=== PATIENT | female | born 1930 | race Two or more races ===

== ENCOUNTER 2018-08-30 14:24 | Inpatient (IN) | payer MEDICARE ==
[2018-08-30] VITALS (20 sets, daily range): BP systolic 0–149; BP diastolic 0–108
[~2018-08-30] VITALS: Ht 162.6 cm; Wt 60.3 kg
[2018-08-30] MEDS ORDERED: Sodium Chloride 500ML 500 ML IV ONE (14:30)
[2018-08-30] MEDS ORDERED: LEVOTHYROXINE75 MCG ORAL (14:41)
[2018-08-30] MEDS ORDERED: LISINOPRIL5 MG ORAL (14:41)
[2018-08-30] MEDS ORDERED: SIMVASTATIN5 MG ORAL (14:41)
[2018-08-30] MEDS ORDERED: ATENOLOL25 MG ORAL (14:41)
[2018-08-30] MEDS ORDERED: TRAZODONE HCL150 MG ORAL (14:41)
[2018-08-30 14:46] LABS: BASOPHILS % (AUTO) 0.7 % (0.0-2.0); EOSINOPHILS % (AUTO) 0.1 % (0.0-3.0); HEMOGLOBIN 9.6 G/DL (12.0-16.0); LYMPHOCYTES % (AUTO) 26.1 % (20.0-45.0); MEAN CORPUSCULAR VOLUME 91 FL (80-99); MONOCYTES % (AUTO) 7.9 % (1.0-10.0); NEUTROPHILS % (AUTO) 65.2 % (45.0-75.0); PLATELET COUNT 193 K/UL (150-450); RED BLOOD COUNT 3.29 M/UL (4.20-5.40); RED CELL DISTRIBUTION WIDTH 12.5 % (11.6-14.8); WHITE BLOOD COUNT 6.8 K/UL (4.8-10.8)
--- NOTE | 2018-08-30 14:53 | Emergency Room Report ---
History of Present Illness General Chief Complaint: CPR Source: EMS Present Illness HPI Patient apparently was at home and per report had aspirated was unresponsive on flour tester arrival. Patient was intubated and then started on CPR with chest compressions and epinephrine. Patient regained a pulse and then lost it arrived in idioventricular rhythm in her emergency department. No further history was available. Patient was critical. No other modifying factors. No other associated signs and symptoms. No other complaints were noted. Allergies: Coded Allergies: PENICILLINS (Verified Allergy, Unknown, 08/30/18) Patient History Past Medical History: HTN, other - Dysphagia Past Surgical History: unable to obtain Pertinent Family History: unable to obtain Social History Narrative and known unable to obtai Reviewed Nursing Documentation: PMH: Agreed Nursing Documentation-PMH Past Medical History: No History, Except For Hx Hypertension: Yes Hx Diabetes: No - hypothiroid Hx Gastrointestinal Problems: Yes - dysphasia Review of Systems All Other Systems: limited Physical Exam hypothermic, pulseless, apneic General Appearance: thin, other - Critically ill Head: atraumatic Eyes: bilateral eye other - [place] conjunctiva, pupils mid position and not reactive ENT: dry mucus membranes Neck: supple Respiratory: other - Rhonchus sounds with ventilation. Cardiovascular #1: other - Pulseless Gastrointestinal: soft Genitourinary: normal inspection Musculoskeletal: normal inspection Neurologic: other - Unable to assess, critical Psychiatric: other - Unable to assess, criti Skin: normal color, no rash Procedures Critical Care Time Critical Care Time Patient had a critical medical condition which untreated could potentially result in life or limb threatening injury. Total critical care time excluding procedures was 45 minutes. Central Line Central Line : Consent: Emergent Central Line Lumen: triple Maximal Sterile Barrier Tech: yes cap, yes mask, yes sterile gown, yes sterile gloves, yes large sterile sheet, yes hand hygiene, yes chlorhexidine prep Central Line Postion: femoral (R) Complications: none Central Line Post Position: sutured Attempts: One Patient Tolerated: Well Complications: None Medical Decision Making Diagnostic Impression: Primary Impression: For cardiopulmonary resuscitation Additional Impressions: Cardiac arrest Respiratory failure Pleural effusion Aspiration into airway Hypotension Hypothermia ER Course Patient presents emergency department today with cardiopulmonary arrest. Patient was resuscitated using ACLS protocol. Central line was placed in patient's right groin. Intubation was performed by the paramedics prior to arrival. Chest x-ray shows ET tube to be in good position. Case was discussed with [place] physician. Dr. Sherman at [place]. Case #[id number]. Case was also discussed with Dr. Ron Cantu. Patient will be admitted to intensive care unit for further treatment. Because of risks aspiration and pleural effusion on chest x-ray and patient was hypothermic will start antibiotics using some sepsis protocol. Blood cultures were obtained prior to administration IV antibiotics. Patient is allergic to penicillin and sulfa. Therefore patient will be started on aztreonam and Levaquin. Patient will be admitted to intensive. No further treatment. Case was discussed with the patient's daughter as well. And patient's . Labs Test 08/30/18 14:30 08/30/18 15:15 White Blood Count 6.8 K/UL (4.8-10.8) Red Blood Count 3.29 M/UL (4.20-5.40) Hemoglobin 9.6 G/DL (12.0-16.0) Hematocrit 30.0 % (37.0-47.0) Mean Corpuscular Volume 91 FL (80-99) Mean Corpuscular Hemoglobin 29.2 PG (27.0-31.0) Mean Corpuscular Hemoglobin Concent 31.9 G/DL (32.0-36.0) Red Cell Distribution Width 12.5 % (11.6-14.8) Platelet Count 193 K/UL (150-450) Mean Platelet Volume 7.5 FL (6.5-10.1) Neutrophils (%) (Auto) 65.2 % (45.0-75.0) Lymphocytes (%) (Auto) 26.1 % (20.0-45.0) Monocytes (%) (Auto) 7.9 % (1.0-10.0) Eosinophils (%) (Auto) 0.1 % (0.0-3.0) Basophils (%) (Auto) 0.7 % (0.0-2.0) Prothrombin Time 11.5 SEC (9.30-11.50) Prothromb Time International Ratio 1.1 (0.9-1.1) Activated Partial Thromboplast Time 27 SEC (23-33) Sodium Level 140 MMOL/L (136-145) Potassium Level 2.9 MMOL/L (3.5-5.1) Chloride Level 104 MMOL/L (98-107) Carbon Dioxide Level 24 MMOL/L (21-32) Anion Gap 12 mmol/L (5-15) Blood Urea Nitrogen 31 mg/dL (7-18) Creatinine 1.1 MG/DL (0.55-1.30) Estimat Glomerular Filtration Rate mL/min (>60) Glucose Level 168 MG/DL (74-106) Calcium Level 7.1 MG/DL (8.5-10.1) Total Bilirubin 0.3 MG/DL (0.2-1.0) Aspartate Amino Transf (AST/SGOT) 84 U/L (15-37) Alanine Aminotransferase (ALT/SGPT) 56 U/L (12-78) Alkaline Phosphatase 59 U/L (46-116) Total Creatine Kinase 242 U/L (26-308) Creatine Kinase MB 10.1 NG/ML (0.0-3.6) Creatine Kinase MB Relative Index 4.1 Troponin I 0.022 ng/mL (0.000-0.056) Pro-B-Type Natriuretic Peptide 253 pg/mL (0-125) Total Protein 5.7 G/DL (6.4-8.2) Albumin 2.2 G/DL (3.4-5.0) Globulin 3.5 g/dL Albumin/Globulin Ratio 0.6 (1.0-2.7) Lipase 176 U/L (73-393) Arterial Blood pH 7.341 (7.350-7.450) Arterial Blood Partial Pressure CO2 44.4 mmHg (35.0-45.0) Arterial Blood Partial Pressure O2 321.3 mmHg (75.0-100.0) Arterial Blood HCO3 23.5 mmol/L (22.0-26.0) Arterial Blood Oxygen Saturation 99.3 % (95-100) Arterial Blood Base Excess -2.3 (-2-2) Tanner Test Positive EKG Diagnostic Results Rate: normal Rhythm: other - Junctional ST Segments: no acute changes Rhythm Strip Diag. Results EP Interpretation: yes Rate: 80 Rhythm: no PVC's, no ectopy, other - Junctional Chest X-Ray Diagnostic Results Chest X-Ray Diagnostic Results : Chest X-Ray Ordered: Yes # of Views/Limited/Complete: 1 View Indication: Shortness of Breath EP Interpretation: Yes Interpretation: other - left pleural effusion,, ET tube in good position, no evidence pneumothorax Electronically Signed by: Electronically signed by Live Martinez MD Status: improved Disposition: ADMITTED INPATIENT Condition: Critical Live Martinez MD Aug 30, 2018 14:53
[2018-08-30 14:54] LABS: INR 1.1 (0.9-1.1)
[2018-08-30 15:04] LABS: ANION GAP 12 mmol/L (5-15); BLOOD UREA NITROGEN 31 mg/dL (7-18); CALCIUM 7.1 MG/DL (8.5-10.1); CARBON DIOXIDE 24 MMOL/L (21-32); CHLORIDE 104 MMOL/L (98-107); CREATININE 1.1 MG/DL (0.55-1.30); POTASSIUM 2.9 MMOL/L (3.5-5.1); SODIUM 140 MMOL/L (136-145)
[2018-08-30] MEDS ORDERED: DOPamine 400mg/250ml 250 ML IV SCH (15:15)
[2018-08-30 15:16] LABS: ALANINE AMINOTRANSFERASE 56 U/L (12-78); ALBUMIN 2.2 G/DL (3.4-5.0); ALBUMIN/GLOBULIN RATIO 0.6 (1.0-2.7); ALKALINE PHOSPHATASE 59 U/L (46-116); ASPARTATE AMINO TRANSFERASE 84 U/L (15-37); BILIRUBIN,TOTAL 0.3 MG/DL (0.2-1.0); CKMB 10.1 NG/ML (0.0-3.6); CREATINE KINASE 242 U/L (26-308)
[2018-08-30] MEDS ORDERED: Cefepime HCl 2 GM in NS 110 ML IV SCH (15:30)
[2018-08-30] MEDS ORDERED: Aztreonam Inj 2 GM in NS 110 ML IV SCH (15:45)
--- NOTE | 2018-08-30 17:11 | History & Physical ---
History and Physical History & Physicial Dictated for Int Med-Dr Cantu no. [id number]. Santiago Nair MD Aug 30, 2018 17:11
[2018-08-30 17:46] LABS: APPEARANCE,URINE CLOUDY; BILIRUBIN, URINE NEGATIVE (NEGATIVE); COLOR,URINE AMBER; GLUCOSE, URINE (UA) NEGATIVE (NEGATIVE); KETONES,URINE 1+ (NEGATIVE); LEUKOCYTE ESTERASE ,URINE 1+ (NEGATIVE); NITRITE,URINE NEGATIVE (NEGATIVE); PH,URINE 5 (4.5-8.0); PROTEIN,URINE 3+ (NEGATIVE); UROBILINOGEN,URINE NORMAL MG/DL (0.0-1.0)
[2018-08-30] MEDS ORDERED: BETAMETHASONE V TP (17:53)
[2018-08-30] MEDS ORDERED: SIMVASTATIN40 MG ORAL (17:53)
[2018-08-30] MEDS ORDERED: TRIAMCINOLONE A15 G1 TP (17:53)
[2018-08-30] MEDS ORDERED: OFLOXACIN5 ML BOTH EARS (17:53)
[2018-08-30] MEDS ORDERED: DOCUSATE SODIU100 MG ORAL (17:53)
[2018-08-30] MEDS ORDERED: FOSAMAX70 MG ORAL (17:53)
[2018-08-30] MEDS ORDERED: LISINOPRIL-HCT1 EACH ORAL (17:53)
[2018-08-30] MEDS ORDERED: TYLENOL EXTRA500 MG ORAL (17:53)
[2018-08-30] MEDS ORDERED: TRAZODONE HCL50 MG ORAL (17:53)
[2018-08-30] MEDS ORDERED: FERROUS GLUCON324 M1 PO (17:53)
[2018-08-30] MEDS ORDERED: ACETAMINOPHEN650 M3 ORAL (17:53)
[2018-08-30] MEDS ORDERED: Morphine Sulfate 4mg/ml Inj (IV/IM USE ONLY) IVP PRN (19:15)
[2018-08-30] MEDS ORDERED: Albuterol/Ipratropium 3ml neb HHN PRN (19:15)
[2018-08-30] MEDS ORDERED: Miralax 17gm pkt ORAL PRN (19:15)
[2018-08-30] MEDS ORDERED: Amikacin Rx to dose MISC PRN (19:45)
[2018-08-30] MEDS ORDERED: Vancomycin 1 GM in D5W 275 ML IVPB SCH (20:00)
[2018-08-30] MEDS: DOPamine 400mg/250ml 250 ML IV SCH (20:31)
[2018-08-30] MEDS: Heparin 5000 units/ml inj SUBQ SCH (20:33)
[2018-08-30] MEDS ORDERED: Amikacin 800 MG in NS 110 ML IV SCH (21:00)
--- NOTE | 2018-08-30 21:02 | History and Physical Report ---
DATE OF ADMISSION: 08/30/2018 CHIEF COMPLAINT: The patient is an 88-year-old white female, who presents with a chief complaint of respiratory failure. HISTORY OF PRESENT ILLNESS: The patient apparently was at home with family. The patient aspirated. EMS was called. The patient was unresponsive on arrival. The patient was emergently intubated in the field and the patient was coded with CPR and epinephrine. Paramedics regained a pulse. The patient was transferred to [facility]. Upon arrival at [place] emergency room, the patient had idioventricular rhythm in the emergency department. The patient was again resuscitated in the emergency room. The patient is admitted to the intensive care unit status post cardiac arrest and respiratory failure. PAST MEDICAL HISTORY: Significant for, 1. Hypertension. 2. Dysphagia. PAST SURGICAL HISTORY: Unknown. CURRENT MEDICATIONS: 1. Atenolol 25 mg one tab p.o. daily. 2. Levoxyl 75 mcg one tablet p.o. daily. 3. Lisinopril 5 mg p.o. daily. 4. Simvastatin 5 mg p.o. daily. 5. Trazodone 150 mg p.o. at bedtime. ALLERGIES: Penicillin. SOCIAL HISTORY: The patient lives at home with her family. The patient denies tobacco or alcohol use. REVIEW OF SYSTEMS: Unable to assess secondary to the patient's mental status. PHYSICAL EXAMINATION: VITAL SIGNS: Temperature 97.1, respirations 17, pulse 70, and blood pressure 113/43. GENERAL: The patient is well-developed and well-nourished white female, in no apparent distress. HEENT: Eyes, pupils are equal and responsive to light and accommodation. Extraocular movements are intact. NECK: Supple without lymphadenopathy. CHEST: Few scattered wheezes bilaterally with crackles at bilateral bases. CARDIOVASCULAR: Regular rhythm. Regular rate. S1 and S2 are normal without murmurs, rubs, or gallops. ABDOMEN: Soft, nontender, and nondistended. Positive bowel sounds. No evidence of hepatosplenomegaly. Currently, no rebound or guarding noted. EXTREMITIES: Negative for clubbing, cyanosis, or edema. NEUROLOGICAL: Unable to assess secondary to sedation and intubation. LABORATORY STUDIES: WBC 6.8, hemoglobin 9.6, hematocrit 30.0, and platelets 193,000. Sodium 140, potassium 3.9, chloride 104, CO2 24, BUN 31, creatinine 1.1, and glucose 168. Troponin elevated at 0.22. BNP elevated at 253. ABGs on arrival, pH 7.341, pCO2 44.4, pO2 321.3, bicarb 23.5, oxygen saturation 99.3, and base excess -2.3. ASSESSMENT: This is an 88-year-old white female. 1. Status post cardiac arrest. 2. Respiratory failure. 3. Aspiration. 4. Hypertension. 5. Hypothyroidism. 6. . TREATMENT: 1. Aspiration/respiratory failure. A Pulmonary consultation was obtained with Dr. Karine Berry. The patient is currently intubated and sedated. We will follow recommendations of Pulmonary. 2. Cardiac arrest. This is secondary to aspiration as above. A Cardiology consultation has been obtained with Dr. Barahona. We will follow recommendations of Cardiology. 3. Hypertension. The patient is currently hypotensive. 4. Hypothyroidism. Continue Synthroid as above. Santiago Nair M.D. DR: TANYA JOB#: [id number] CC:
[2018-08-30] MEDS: LORazepam Inj 2mg/ml 1ml IV PRN (21:18)
[2018-08-31] VITALS (37 sets, daily range): BP systolic 100–162; BP diastolic 39–99
[2018-08-31] MEDS: LORazepam Inj 2mg/ml 1ml IV PRN ×5 (02:42→22:21)
[2018-08-31 05:51] LABS: HEMATOCRIT 35.9 % (37.0-47.0); HEMOGLOBIN 11.9 G/DL (12.0-16.0); MEAN CORPUSCULAR VOLUME 89 FL (80-99); PLATELET COUNT 229 K/UL (150-450); RED BLOOD COUNT 4.03 M/UL (4.20-5.40); RED CELL DISTRIBUTION WIDTH 12.2 % (11.6-14.8); WHITE BLOOD COUNT 9.8 K/UL (4.8-10.8)
[2018-08-31 06:29] LABS: ALANINE AMINOTRANSFERASE 83 U/L (12-78); ALBUMIN 2.7 G/DL (3.4-5.0); ALBUMIN/GLOBULIN RATIO 0.6 (1.0-2.7); ALKALINE PHOSPHATASE 61 U/L (46-116); ANION GAP 10 mmol/L (5-15); ASPARTATE AMINO TRANSFERASE 125 U/L (15-37); BILIRUBIN,DIRECT < 0.1 MG/DL (0.0-0.3); BILIRUBIN,TOTAL 0.5 MG/DL (0.2-1.0); BLOOD UREA NITROGEN 40 mg/dL (7-18); CARBON DIOXIDE 23 MMOL/L (21-32); CHLORIDE 98 MMOL/L (98-107); CREATININE 1.5 MG/DL (0.55-1.30); SODIUM 131 MMOL/L (136-145)
[2018-08-31 06:34] LABS: POTASSIUM 6.2 MMOL/L (3.5-5.1)
[2018-08-31 08:43] LABS: PHOSPHORUS 2.3 MG/DL (2.5-4.9)
--- NOTE | 2018-08-31 09:16 | Consultation ---
Consult Note Consult Note asked to eval for Oliguria and Hyperkalemia Patient apparently was at home and per report had aspirated was unresponsive on wheel alignment technician arrival. Patient was intubated and then started on CPR with chest compressions and epinephrine. Patient regained a pulse and then lost it arrived in idioventricular rhythm in her emergency department. No further history was available. Patient was critical. No other modifying factors. No other associated signs and symptoms. No other complaints were noted. Allergies: Coded Allergies: PENICILLINS (Verified Allergy, Unknown, 08/30/18) Past Medical History: HTN, other - Dysphagia Past Medical History: No History, Except For Hx Hypertension: Yes Hx Diabetes: No - hypothiroid Hx Gastrointestinal Problems: Yes - dysphasia discussed with RN Patient post Code blue of 30 minutes on pressors twitching on vent oliguric Assessment/Plan ATN, Oliguric renal failure HyperKalemia Respiratory failure acute Hypotensive poor prognosis NGT Kayexelate IV fluids Monitor renal parameters avoid nephrotoxics Gastric support Neuro eval? discussed with Kwadwo Orourke MD Aug 31, 2018 09:16
[2018-08-31] MEDS: DOPamine 400mg/250ml 250 ML IV SCH ×2 (09:20→18:55)
--- NOTE | 2018-08-31 09:21 | Diagnostic Imaging Report ---
Indication: Post intubation Technique: One view of the chest Comparison: none Findings: There are overlying defibrillator paddles. There is an endotracheal tube in place, tip projected approximately one centimeter above the camelia. There is a large left pleural effusion. The right lung and pleural space are clear. Impression: Satisfactory endotracheal intubation Large left pleural effusion
[2018-08-31] MEDS ORDERED: Sodium Polystyrene Sulfonate 15gm Powder NG SCH (09:45)
[2018-08-31] MEDS ORDERED: Pantoprazole Inj IVP SCH (09:45)
--- NOTE | 2018-08-31 10:01 | Diagnostic Imaging Report ---
Indication: Post nasogastric tube placement Technique: One view of the chest Comparison: none Findings: There is a nasogastric tube in place, tip projected at expected level of the gastric fundus. There is a right groin central venous catheter. Bowel gas pattern is unremarkable. There is a right hip prosthesis. There is a large left pleural effusion incidentally noted, also previously reported on chest radiograph. There is lumbar scoliotic deformity and extensive secondary degenerative change Impression: Satisfactory nasogastric intubation Other findings as noted Findings phoned to patient's nurse at the time of interpretation
[2018-08-31] MEDS: Heparin 5000 units/ml inj SUBQ SCH ×2 (10:14→20:10)
[2018-08-31] MEDS: D5NS 1,000 ML IV SCH ×2 (10:15→18:01)
--- NOTE | 2018-08-31 10:41 | Pulmonolgy Critical Care Note ---
Critical Care - Asmt/Plan Problems: (1) ATN (acute tubular necrosis) (2) Cardiac arrest (3) Hypothermia (4) Respiratory failure Respiratory: monitor respiratory rate, adjust FIO2, CXR Cardiac: continue to monitor HR/BP Renal: F/U I&O, check electrolytes Infectious Disease: check cultures Gastrointestinal: hold feedings Endocrine: monitor blood sugar Hematologic: monitor H/H, transfuse if hgb<8.5 Neurologic: keep patient comfortable Affect: PRN ativan Prophylaxis: Protonix Time Spent (Minutes): 40 Notes Reviewed: roofing contractor, renal Discussed with: consultants, case hardenerimaging center manager - Objective Last 24 Hour Vital Signs Date Time Temp Pulse Resp B/P (MAP) Pulse Ox O2 Delivery O2 Flow Rate FiO2 08/31/18 09:20 105/50 08/31/18 08:15 58 16 105/50 (68) 100 08/31/18 08:00 57 16 138/51 (80) 100 08/31/18 08:00 Mechanical Ventilator 08/31/18 07:45 59 16 139/70 (93) 100 08/31/18 07:30 58 16 137/43 (74) 100 08/31/18 07:15 55 16 138/51 (80) 100 08/31/18 07:10 57 16 50 08/31/18 07:00 98.0 57 16 138/51 (80) 100 08/31/18 07:00 138/51 08/31/18 06:05 119/70 08/31/18 06:00 119/70 08/31/18 06:00 59 16 119/99 (106) 100 08/31/18 05:00 126/54 08/31/18 05:00 59 16 126/54 (78) 100 08/31/18 04:55 59 16 50 08/31/18 04:15 151/62 08/31/18 04:00 Mechanical Ventilator 08/31/18 04:00 61 16 132/97 (109) 100 08/31/18 04:00 132/97 08/31/18 04:00 61 08/31/18 04:00 50 08/31/18 03:00 138/69 08/31/18 03:00 138/69 08/31/18 03:00 58 16 137/71 (93) 100 08/31/18 02:55 61 16 50 08/31/18 02:00 144/99 08/31/18 02:00 144/99 08/31/18 02:00 66 16 144/99 (114) 100 08/31/18 01:00 65 16 50 08/31/18 01:00 124/77 08/31/18 01:00 124/77 08/31/18 01:00 66 16 124/77 (93) 100 08/31/18 00:30 66 16 138/62 (87) 100 08/31/18 00:00 50 08/31/18 00:00 54 16 100/39 (59) 100 08/31/18 00:00 87 08/31/18 00:00 100/39 08/31/18 00:00 100/39 08/31/18 00:00 Mechanical Ventilator 08/30/18 23:30 91 16 140/83 (102) 100 08/30/18 23:22 94 16 50 08/30/18 23:00 140/63 08/30/18 23:00 140/63 08/30/18 23:00 96 16 140/63 (88) 100 08/30/18 22:38 134/78 08/30/18 22:30 97 16 134/78 (96) 100 08/30/18 22:00 149/79 08/30/18 22:00 149/79 08/30/18 22:00 98 16 149/79 (102) 100 08/30/18 21:30 100 17 139/71 (93) 100 08/30/18 21:00 117/99 08/30/18 21:00 117/99 08/30/18 21:00 106 21 117/99 (105) 100 08/30/18 20:45 139/75 08/30/18 20:45 139/75 08/30/18 20:38 115 17 50 08/30/18 20:31 153/69 08/30/18 20:30 132/75 08/30/18 20:30 132/75 08/30/18 20:30 113 20 132/75 (94) 100 08/30/18 20:15 153/69 08/30/18 20:15 153/69 08/30/18 20:00 Mechanical Ventilator 08/30/18 20:00 147/108 08/30/18 20:00 147/108 08/30/18 20:00 119 08/30/18 20:00 97.5 119 20 147/108 (121) 100 08/30/18 19:45 124 23 138/92 (107) 100 08/30/18 19:30 107 23 91/52 (65) 100 08/30/18 19:26 132 24 50 08/30/18 19:15 109 23 52/41 (45) 100 08/30/18 19:15 150/100 08/30/18 19:15 91/52 08/30/18 19:15 91/52 08/30/18 19:00 109 23 52/41 (45) 100 08/30/18 19:00 52/41 08/30/18 19:00 52/41 08/30/18 18:30 87 21 125/73 (90) 100 08/30/18 18:30 125/73 08/30/18 18:30 125/73 08/30/18 18:00 Mechanical Ventilator 08/30/18 18:00 113/59 08/30/18 18:00 113/59 08/30/18 18:00 92.0 112 20 113/59 (77) 99 08/30/18 18:00 50 08/30/18 17:59 91.6 87 17 113/43 98 Mechanical Ventilator 08/30/18 17:50 50 08/30/18 17:03 91.6 78 17 113/43 98 Mechanical Ventilator 60.0 50 08/30/18 16:41 86 22 50 08/30/18 16:27 86 18 Endotracheal Tube 60.0 100 08/30/18 16:00 113/43 08/30/18 15:56 65/53 08/30/18 15:52 97.1 70 17 113/43 93 Endotracheal Tube 60.0 100 08/30/18 15:45 111/58 08/30/18 15:35 98/54 08/30/18 15:30 79/35 08/30/18 15:30 79/35 08/30/18 15:26 97.5 64 98/52 Endotracheal Tube 60.0 100 08/30/18 15:25 77/46 08/30/18 15:05 83 17 Mechanical Ventilator 60.0 100 08/30/18 14:57 97.2 89 19 77/40 98 Endotracheal Tube 50 08/30/18 14:40 88.0 48 19 58/42 100 Mechanical Ventilator 100 08/30/18 14:40 48 19 Mechanical Ventilator 50 08/30/18 14:32 83 19 100 08/30/18 14:25 88.0 48 19 58/42 100 Ambu-Bag 100 Status: obtunded Condition: critical HEENT: atraumatic Lungs: clear Heart: HR/BP stable Abdomen: soft, non-tender Extremities: no C/C/E, edema Micro: Microbiology Date/Time Source Procedure Growth Status 08/30/18 17:17 Urine,Clean Catch Urine Culture - Preliminary NO GROWTH Resulted Critical Care - Subjective ROS Limited/Unobtainable: Yes ICU Day: 2 Intubation Day: 2 Condition: critical FI02: 50 Vent Support Breath Rate: 16 Vent Support Mode: AC Vent Tidal Volume: 600 Sputum Amount: Scant PEEP: 0.0 PIP: 30 I&O: Intake and Output 08/30/18 08/31/18 18:59 06:59 Intake Total 142.691 ml 2343.11784 ml Output Total 300 ml Balance 142.691 ml 2043.24561 ml Intake IV Total 142.691 ml 2343.21209 ml Output Urine Total 300 ml # Voids 2 CXR: Et at good position no acute infiltrate ET-Tube: 7.5 ET Position: 22 Labs: Laboratory Tests Test 08/30/18 14:30 08/30/18 15:15 08/30/18 16:28 08/30/18 17:17 White Blood Count 6.8 K/UL (4.8-10.8) Red Blood Count 3.29 M/UL (4.20-5.40) L Hemoglobin 9.6 G/DL (12.0-16.0) L Hematocrit 30.0 % (37.0-47.0) L Mean Corpuscular Volume 91 FL (80-99) Mean Corpuscular Hemoglobin 29.2 PG (27.0-31.0) Mean Corpuscular Hemoglobin Concent 31.9 G/DL (32.0-36.0) L Red Cell Distribution Width 12.5 % (11.6-14.8) Platelet Count 193 K/UL (150-450) Mean Platelet Volume 7.5 FL (6.5-10.1) Neutrophils (%) (Auto) 65.2 % (45.0-75.0) Lymphocytes (%) (Auto) 26.1 % (20.0-45.0) Monocytes (%) (Auto) 7.9 % (1.0-10.0) Eosinophils (%) (Auto) 0.1 % (0.0-3.0) Basophils (%) (Auto) 0.7 % (0.0-2.0) Prothrombin Time 11.5 SEC (9.30-11.50) Prothromb Time International Ratio 1.1 (0.9-1.1) Activated Partial Thromboplast Time 27 SEC (23-33) Sodium Level 140 MMOL/L (136-145) Potassium Level 2.9 MMOL/L (3.5-5.1) L Chloride Level 104 MMOL/L (98-107) Carbon Dioxide Level 24 MMOL/L (21-32) Anion Gap 12 mmol/L (5-15) Blood Urea Nitrogen 31 mg/dL (7-18) H Creatinine 1.1 MG/DL (0.55-1.30) Estimat Glomerular Filtration Rate mL/min (>60) Glucose Level 168 MG/DL (74-106) H Calcium Level 7.1 MG/DL (8.5-10.1) L Total Bilirubin 0.3 MG/DL (0.2-1.0) Aspartate Amino Transf (AST/SGOT) 84 U/L (15-37) H Alanine Aminotransferase (ALT/SGPT) 56 U/L (12-78) Alkaline Phosphatase 59 U/L (46-116) Total Creatine Kinase 242 U/L (26-308) Creatine Kinase MB 10.1 NG/ML (0.0-3.6) H Creatine Kinase MB Relative Index 4.1 Troponin I 0.022 ng/mL (0.000-0.056) Pro-B-Type Natriuretic Peptide 253 pg/mL (0-125) H Total Protein 5.7 G/DL (6.4-8.2) L Albumin 2.2 G/DL (3.4-5.0) L Globulin 3.5 g/dL Albumin/Globulin Ratio 0.6 (1.0-2.7) L Lipase 176 U/L (73-393) Arterial Blood pH 7.341 (7.350-7.450) Arterial Blood Partial Pressure CO2 44.4 mmHg (35.0-45.0) Arterial Blood Partial Pressure O2 321.3 mmHg (75.0-100.0) H Arterial Blood HCO3 23.5 mmol/L (22.0-26.0) Arterial Blood Oxygen Saturation 99.3 % (95-100) Arterial Blood Base Excess -2.3 (-2-2) L Tanner Test Positive Lactic Acid Level 6.40 mmol/L (0.4-2.0) H Urine Color Cha Urine Appearance Cloudy Urine pH 5 (4.5-8.0) Urine Specific [place] 1.020 (1.005-1.035) Urine Protein 3+ (NEGATIVE) H Urine Glucose (UA) Negative (NEGATIVE) Urine Ketones 1+ (NEGATIVE) H Urine Blood 3+ (NEGATIVE) H Urine Nitrite Negative (NEGATIVE) Urine Bilirubin Negative (NEGATIVE) Urine Ictotest Negative (NEGATIVE) Urine Urobilinogen Normal MG/DL (0.0-1.0) Urine Leukocyte Esterase 1+ (NEGATIVE) H Urine RBC 10-15 /HPF (0 - 2) H Urine WBC 15-20 /HPF (0 - 2) H Urine Squamous Epithelial Cells Moderate /LPF (NONE/OCC) H Urine Amorphous Sediment Many /LPF (NONE) H Urine Bacteria Moderate /HPF (NONE) H Test 08/31/18 04:20 08/31/18 07:46 08/31/18 09:20 White Blood Count 9.8 K/UL (4.8-10.8) Red Blood Count 4.03 M/UL (4.20-5.40) L Hemoglobin 11.9 G/DL (12.0-16.0) L Hematocrit 35.9 % (37.0-47.0) L Mean Corpuscular Volume 89 FL (80-99) Mean Corpuscular Hemoglobin 29.5 PG (27.0-31.0) Mean Corpuscular Hemoglobin Concent 33.1 G/DL (32.0-36.0) Red Cell Distribution Width 12.2 % (11.6-14.8) Platelet Count 229 K/UL (150-450) Mean Platelet Volume 7.2 FL (6.5-10.1) Neutrophils (%) (Auto) % (45.0-75.0) Lymphocytes (%) (Auto) % (20.0-45.0) Monocytes (%) (Auto) % (1.0-10.0) Eosinophils (%) (Auto) % (0.0-3.0) Basophils (%) (Auto) % (0.0-2.0) Differential Total Cells Counted 100 Neutrophils % (Manual) 83 % (45-75) H Lymphocytes % (Manual) 4 % (20-45) L Monocytes % (Manual) 4 % (1-10) Eosinophils % (Manual) 0 % (0-3) Basophils % (Manual) 0 % (0-2) Band Neutrophils 9 % (0-8) H Platelet Estimate Adequate Platelet Morphology Normal Red Blood Cell Morphology Normal Sodium Level 131 MMOL/L (136-145) L Potassium Level 6.2 MMOL/L (3.5-5.1) #*H 6.1 MMOL/L (3.5-5.1) *H Chloride Level 98 MMOL/L (98-107) Carbon Dioxide Level 23 MMOL/L (21-32) Anion Gap 10 mmol/L (5-15) Blood Urea Nitrogen 40 mg/dL (7-18) H Creatinine 1.5 MG/DL (0.55-1.30) H Estimat Glomerular Filtration Rate mL/min (>60) Glucose Level 117 MG/DL (74-106) H Calcium Level 8.0 MG/DL (8.5-10.1) L Total Bilirubin 0.5 MG/DL (0.2-1.0) Direct Bilirubin < 0.1 MG/DL (0.0-0.3) Aspartate Amino Transf (AST/SGOT) 125 U/L (15-37) H Alanine Aminotransferase (ALT/SGPT) 83 U/L (12-78) H Alkaline Phosphatase 61 U/L (46-116) Total Protein 7.4 G/DL (6.4-8.2) Albumin 2.7 G/DL (3.4-5.0) L Globulin 4.7 g/dL Albumin/Globulin Ratio 0.6 (1.0-2.7) L Lactic Acid Level 4.00 mmol/L (0.4-2.0) H Phosphorus Level 2.3 MG/DL (2.5-4.9) L Magnesium Level 1.6 MG/DL (1.8-2.4) L C-Reactive Protein, Quantitative 14.4 mg/dL (0.00-0.90) H Random Amikacin Level 18.7 ug/mL Arterial Blood pH 7.335 (7.350-7.450) Arterial Blood Partial Pressure CO2 36.5 mmHg (35.0-45.0) Arterial Blood Partial Pressure O2 362.7 mmHg (75.0-100.0) H Arterial Blood HCO3 19.0 mmol/L (22.0-26.0) L Arterial Blood Oxygen Saturation 99.4 % (95-100) Arterial Blood Base Excess -6.2 (-2-2) L Tanner Test Positive Karine Berry MD Aug 31, 2018 10:41
--- NOTE | 2018-08-31 11:07 | Consultation ---
Consult Note Consult Note ID # [id number] Adrian Ames MD Aug 31, 2018 11:07
--- NOTE | 2018-08-31 11:18 | Diagnostic Imaging Report ---
Indication: Dyspnea Technique: One view of the chest Comparison: 08/30/2018 Findings: Again demonstrated is an endotracheal tube, tip now appearing to project right at the orifice of the right mainstem bronchus. Large left pleural effusion appears slightly larger than on the prior study. Right lung and pleural space remain clear. The stomach is distended with gas Impression: Low position of endotracheal tube, tip at the right mainstem bronchus orifice. Withdrawal recommended. This finding was communicated to patient's nurse Stacie at the time of interpretation
[2018-08-31] MEDS ORDERED: Depakote 500mg tab ORAL SCH (11:45)
--- NOTE | 2018-08-31 11:49 | Cardiac Electrophysiology PN ---
Subjective Subjective [id number] Objective Last 24 Hour Vital Signs Date Time Temp Pulse Resp B/P (MAP) Pulse Ox O2 Delivery O2 Flow Rate FiO2 08/31/18 09:20 105/50 08/31/18 08:15 58 16 105/50 (68) 100 08/31/18 08:00 50 08/31/18 08:00 57 16 138/51 (80) 100 08/31/18 08:00 Mechanical Ventilator 08/31/18 07:45 59 16 139/70 (93) 100 08/31/18 07:30 58 16 137/43 (74) 100 08/31/18 07:15 55 16 138/51 (80) 100 08/31/18 07:10 57 16 50 08/31/18 07:00 98.0 57 16 138/51 (80) 100 08/31/18 07:00 138/51 08/31/18 06:05 119/70 08/31/18 06:00 119/70 08/31/18 06:00 59 16 119/99 (106) 100 08/31/18 05:00 126/54 08/31/18 05:00 59 16 126/54 (78) 100 08/31/18 04:55 59 16 50 08/31/18 04:15 151/62 08/31/18 04:00 Mechanical Ventilator 08/31/18 04:00 61 16 132/97 (109) 100 08/31/18 04:00 132/97 08/31/18 04:00 61 08/31/18 04:00 50 08/31/18 03:00 138/69 08/31/18 03:00 138/69 08/31/18 03:00 58 16 137/71 (93) 100 08/31/18 02:55 61 16 50 08/31/18 02:00 144/99 08/31/18 02:00 144/99 08/31/18 02:00 66 16 144/99 (114) 100 08/31/18 01:00 65 16 50 08/31/18 01:00 124/77 08/31/18 01:00 124/77 08/31/18 01:00 66 16 124/77 (93) 100 08/31/18 00:30 66 16 138/62 (87) 100 08/31/18 00:00 50 08/31/18 00:00 54 16 100/39 (59) 100 08/31/18 00:00 87 08/31/18 00:00 100/39 08/31/18 00:00 100/39 08/31/18 00:00 Mechanical Ventilator 08/30/18 23:30 91 16 140/83 (102) 100 08/30/18 23:22 94 16 50 08/30/18 23:00 140/63 08/30/18 23:00 140/63 08/30/18 23:00 96 16 140/63 (88) 100 08/30/18 22:38 134/78 08/30/18 22:30 97 16 134/78 (96) 100 08/30/18 22:00 149/79 08/30/18 22:00 149/79 08/30/18 22:00 98 16 149/79 (102) 100 08/30/18 21:30 100 17 139/71 (93) 100 08/30/18 21:00 117/99 08/30/18 21:00 117/99 08/30/18 21:00 106 21 117/99 (105) 100 08/30/18 20:45 139/75 08/30/18 20:45 139/75 08/30/18 20:38 115 17 50 08/30/18 20:31 153/69 08/30/18 20:30 132/75 08/30/18 20:30 132/75 08/30/18 20:30 113 20 132/75 (94) 100 08/30/18 20:15 153/69 08/30/18 20:15 153/69 08/30/18 20:00 Mechanical Ventilator 08/30/18 20:00 147/108 08/30/18 20:00 147/108 08/30/18 20:00 119 08/30/18 20:00 97.5 119 20 147/108 (121) 100 08/30/18 19:45 124 23 138/92 (107) 100 08/30/18 19:30 107 23 91/52 (65) 100 08/30/18 19:26 132 24 50 08/30/18 19:15 109 23 52/41 (45) 100 08/30/18 19:15 150/100 08/30/18 19:15 91/52 11/11/18 19:15 91/52 08/30/18 19:00 109 23 52/41 (45) 100 08/30/18 19:00 52/41 08/30/18 19:00 52/41 08/30/18 18:30 87 21 125/73 (90) 100 08/30/18 18:30 125/73 08/30/18 18:30 125/73 08/30/18 18:00 Mechanical Ventilator 08/30/18 18:00 113/59 08/30/18 18:00 113/59 08/30/18 18:00 92.0 112 20 113/59 (77) 99 08/30/18 18:00 50 08/30/18 17:59 91.6 87 17 113/43 98 Mechanical Ventilator 08/30/18 17:50 50 08/30/18 17:03 91.6 78 17 113/43 98 Mechanical Ventilator 60.0 50 08/30/18 16:41 86 22 50 08/30/18 16:27 86 18 Endotracheal Tube 60.0 100 08/30/18 16:00 113/43 08/30/18 15:56 65/53 08/30/18 15:52 97.1 70 17 113/43 93 Endotracheal Tube 60.0 100 08/30/18 15:45 111/58 08/30/18 15:35 98/54 08/30/18 15:30 79/35 08/30/18 15:30 79/35 08/30/18 15:26 97.5 64 98/52 Endotracheal Tube 60.0 100 08/30/18 15:25 77/46 08/30/18 15:05 83 17 Mechanical Ventilator 60.0 100 08/30/18 14:57 97.2 89 19 77/40 98 Endotracheal Tube 50 08/30/18 14:40 88.0 48 19 58/42 100 Mechanical Ventilator 100 08/30/18 14:40 48 19 Mechanical Ventilator 50 08/30/18 14:32 83 19 100 08/30/18 14:25 88.0 48 19 58/42 100 Ambu-Bag 100 Intake and Output 08/30/18 08/31/18 18:59 06:59 Intake Total 142.691 ml 2343.07628 ml Output Total 300 ml Balance 142.691 ml 2043.43979 ml IV Total 142.691 ml 2343.94391 ml Output Urine Total 300 ml # Voids 2 Laboratory Tests Test 08/30/18 14:30 08/30/18 15:15 08/30/18 16:28 08/30/18 17:17 White Blood Count 6.8 K/UL (4.8-10.8) Red Blood Count 3.29 M/UL (4.20-5.40) L Hemoglobin 9.6 G/DL (12.0-16.0) L Hematocrit 30.0 % (37.0-47.0) L Mean Corpuscular Volume 91 FL (80-99) Mean Corpuscular Hemoglobin 29.2 PG (27.0-31.0) Mean Corpuscular Hemoglobin Concent 31.9 G/DL (32.0-36.0) L Red Cell Distribution Width 12.5 % (11.6-14.8) Platelet Count 193 K/UL (150-450) Mean Platelet Volume 7.5 FL (6.5-10.1) Neutrophils (%) (Auto) 65.2 % (45.0-75.0) Lymphocytes (%) (Auto) 26.1 % (20.0-45.0) Monocytes (%) (Auto) 7.9 % (1.0-10.0) Eosinophils (%) (Auto) 0.1 % (0.0-3.0) Basophils (%) (Auto) 0.7 % (0.0-2.0) Prothrombin Time 11.5 SEC (9.30-11.50) Prothromb Time International Ratio 1.1 (0.9-1.1) Activated Partial Thromboplast Time 27 SEC (23-33) Sodium Level 140 MMOL/L (136-145) Potassium Level 2.9 MMOL/L (3.5-5.1) L Chloride Level 104 MMOL/L (98-107) Carbon Dioxide Level 24 MMOL/L (21-32) Anion Gap 12 mmol/L (5-15) Blood Urea Nitrogen 31 mg/dL (7-18) H Creatinine 1.1 MG/DL (0.55-1.30) Estimat Glomerular Filtration Rate mL/min (>60) Glucose Level 168 MG/DL (74-106) H Calcium Level 7.1 MG/DL (8.5-10.1) L Total Bilirubin 0.3 MG/DL (0.2-1.0) Aspartate Amino Transf (AST/SGOT) 84 U/L (15-37) H Alanine Aminotransferase (ALT/SGPT) 56 U/L (12-78) Alkaline Phosphatase 59 U/L (46-116) Total Creatine Kinase 242 U/L (26-308) Creatine Kinase MB 10.1 NG/ML (0.0-3.6) H Creatine Kinase MB Relative Index 4.1 Troponin I 0.022 ng/mL (0.000-0.056) Pro-B-Type Natriuretic Peptide 253 pg/mL (0-125) H Total Protein 5.7 G/DL (6.4-8.2) L Albumin 2.2 G/DL (3.4-5.0) L Globulin 3.5 g/dL Albumin/Globulin Ratio 0.6 (1.0-2.7) L Lipase 176 U/L (73-393) Arterial Blood pH 7.341 (7.350-7.450) Arterial Blood Partial Pressure CO2 44.4 mmHg (35.0-45.0) Arterial Blood Partial Pressure O2 321.3 mmHg (75.0-100.0) H Arterial Blood HCO3 23.5 mmol/L (22.0-26.0) Arterial Blood Oxygen Saturation 99.3 % (95-100) Arterial Blood Base Excess -2.3 (-2-2) L Tanner Test Positive Lactic Acid Level 6.40 mmol/L (0.4-2.0) H Urine Color Cha Urine Appearance Cloudy Urine pH 5 (4.5-8.0) Urine Specific [place] 1.020 (1.005-1.035) Urine Protein 3+ (NEGATIVE) H Urine Glucose (UA) Negative (NEGATIVE) Urine Ketones 1+ (NEGATIVE) H Urine Blood 3+ (NEGATIVE) H Urine Nitrite Negative (NEGATIVE) Urine Bilirubin Negative (NEGATIVE) Urine Ictotest Negative (NEGATIVE) Urine Urobilinogen Normal MG/DL (0.0-1.0) Urine Leukocyte Esterase 1+ (NEGATIVE) H Urine RBC 10-15 /HPF (0 - 2) H Urine WBC 15-20 /HPF (0 - 2) H Urine Squamous Epithelial Cells Moderate /LPF (NONE/OCC) H Urine Amorphous Sediment Many /LPF (NONE) H Urine Bacteria Moderate /HPF (NONE) H Test 08/31/18 04:20 08/31/18 07:46 08/31/18 10:25 White Blood Count 9.8 K/UL (4.8-10.8) Red Blood Count 4.03 M/UL (4.20-5.40) L Hemoglobin 11.9 G/DL (12.0-16.0) L Hematocrit 35.9 % (37.0-47.0) L Mean Corpuscular Volume 89 FL (80-99) Mean Corpuscular Hemoglobin 29.5 PG (27.0-31.0) Mean Corpuscular Hemoglobin Concent 33.1 G/DL (32.0-36.0) Red Cell Distribution Width 12.2 % (11.6-14.8) Platelet Count 229 K/UL (150-450) Mean Platelet Volume 7.2 FL (6.5-10.1) Neutrophils (%) (Auto) % (45.0-75.0) Lymphocytes (%) (Auto) % (20.0-45.0) Monocytes (%) (Auto) % (1.0-10.0) Eosinophils (%) (Auto) % (0.0-3.0) Basophils (%) (Auto) % (0.0-2.0) Differential Total Cells Counted 100 Neutrophils % (Manual) 83 % (45-75) H Lymphocytes % (Manual) 4 % (20-45) L Monocytes % (Manual) 4 % (1-10) Eosinophils % (Manual) 0 % (0-3) Basophils % (Manual) 0 % (0-2) Band Neutrophils 9 % (0-8) H Platelet Estimate Adequate Platelet Morphology Normal Red Blood Cell Morphology Normal Sodium Level 131 MMOL/L (136-145) L Potassium Level 6.2 MMOL/L (3.5-5.1) #*H 6.1 MMOL/L (3.5-5.1) *H Chloride Level 98 MMOL/L (98-107) Carbon Dioxide Level 23 MMOL/L (21-32) Anion Gap 10 mmol/L (5-15) Blood Urea Nitrogen 40 mg/dL (7-18) H Creatinine 1.5 MG/DL (0.55-1.30) H Estimat Glomerular Filtration Rate mL/min (>60) Glucose Level 117 MG/DL (74-106) H Calcium Level 8.0 MG/DL (8.5-10.1) L Total Bilirubin 0.5 MG/DL (0.2-1.0) Direct Bilirubin < 0.1 MG/DL (0.0-0.3) Aspartate Amino Transf (AST/SGOT) 125 U/L (15-37) H Alanine Aminotransferase (ALT/SGPT) 83 U/L (12-78) H Alkaline Phosphatase 61 U/L (46-116) Total Protein 7.4 G/DL (6.4-8.2) Albumin 2.7 G/DL (3.4-5.0) L Globulin 4.7 g/dL Albumin/Globulin Ratio 0.6 (1.0-2.7) L Lactic Acid Level 4.00 mmol/L (0.4-2.0) H Phosphorus Level 2.3 MG/DL (2.5-4.9) L Magnesium Level 1.6 MG/DL (1.8-2.4) L C-Reactive Protein, Quantitative 14.4 mg/dL (0.00-0.90) H Random Amikacin Level 18.7 ug/mL Arterial Blood pH 7.335 (7.350-7.450) Arterial Blood Partial Pressure CO2 36.5 mmHg (35.0-45.0) Arterial Blood Partial Pressure O2 362.7 mmHg (75.0-100.0) H Arterial Blood HCO3 19.0 mmol/L (22.0-26.0) L Arterial Blood Oxygen Saturation 99.4 % (95-100) Arterial Blood Base Excess -6.2 (-2-2) L Tanner Test Positive Microbiology Date/Time Source Procedure Growth Status 08/30/18 17:17 Urine,Clean Catch Urine Culture - Preliminary NO GROWTH Resulted Imtiaz Moreno MD Aug 31, 2018 11:49
[2018-08-31] MEDS ORDERED: Miralax 17gm pkt NG PRN (12:00)
[2018-08-31] MEDS ORDERED: Valproic Acid 250mg/5ml Liquid NG SCH ×2 (13:00→21:00)
[2018-08-31] MEDS ORDERED: Aztreonam Inj 2 GM in D5W 110 ML IVPB SCH (14:00)
[2018-08-31 14:06] LABS: HEMATOCRIT 29.1 % (37.0-47.0); HEMOGLOBIN 9.7 G/DL (12.0-16.0); MEAN CORPUSCULAR VOLUME 89 FL (80-99); PLATELET COUNT 177 K/UL (150-450); RED BLOOD COUNT 3.27 M/UL (4.20-5.40); RED CELL DISTRIBUTION WIDTH 12.4 % (11.6-14.8)
[2018-08-31 14:31] LABS: ALANINE AMINOTRANSFERASE 77 U/L (12-78); ALBUMIN 2.2 G/DL (3.4-5.0); ALBUMIN/GLOBULIN RATIO 0.6 (1.0-2.7); ALKALINE PHOSPHATASE 57 U/L (46-116); ANION GAP 11 mmol/L (5-15); ASPARTATE AMINO TRANSFERASE 110 U/L (15-37); BILIRUBIN,TOTAL 0.5 MG/DL (0.2-1.0); BLOOD UREA NITROGEN 40 mg/dL (7-18); CALCIUM 7.4 MG/DL (8.5-10.1); CARBON DIOXIDE 21 MMOL/L (21-32); CHLORIDE 100 MMOL/L (98-107); CHOLESTEROL 114 MG/DL (< 200); CREATININE 1.7 MG/DL (0.55-1.30); HDL CHOLESTEROL 77 MG/DL (40-60); PHOSPHORUS 2.2 MG/DL (2.5-4.9); POTASSIUM 5.7 MMOL/L (3.5-5.1); SODIUM 132 MMOL/L (136-145); TRIGLYCERIDES 62 MG/DL (30-150)
[2018-08-31] MEDS: metroNIDAZOLE 500mg tab ORAL SCH ×2 (15:03→21:52)
[2018-08-31] MEDS: Aztreonam 1gm in D5W 55ml IVPB SCH ×2 (15:03→21:52)
--- NOTE | 2018-08-31 15:16 | Consultation ---
DATE OF CONSULTATION: 08/31/2018 INFECTIOUS DISEASES CONSULTATION CONSULTING PHYSICIAN: Adrian Ames M.D. REFERRING PHYSICIAN: 1. Santiago Nair M.D. 2. Ron Cantu M.D. REASON FOR CONSULTATION: Evaluation of the patient for sepsis. HISTORY OF PRESENT ILLNESS: The patient is a 88-year-old female with multiple medical problems as listed below, who apparently had difficulty of swallowing and dysphagia. Recently the patient was eating, started to develop shortness of breath. EMS was called. The patient was found to be unresponsive. The patient was intubated. CRP was done. The patient currently has been admitted to the ICU on pressors, intubated. The patient apparently had a seizure activity and had two rounds of total CPR. Infectious Diseases consultation has been requested for further evaluation of the patient, antibiotic management of aspiration pneumonia and sepsis. PAST MEDICAL HISTORY: 1. Hypertension. 2. History of dysphagia. 3. Diabetes. MEDICATIONS: IV vancomycin. ALLERGIES: Penicillin,? severity. FAMILY HISTORY: Not contributing. REVIEW OF SYSTEMS: Unobtainable. PHYSICAL EXAMINATION: VITAL SIGNS: Temperature 98 degrees, pulse 86, respiratory rate 18, and T-max 97.2. HEENT: No pale conjunctivae. No icterus. NECK: No lymphadenopathy. CHEST: Coarse breathing sounds. HEART: S1 and S2. ABDOMEN: Soft. EXTREMITIES: No cyanosis. SKIN: The patient has ecchymosis over the chest. NEUROLOGIC: nonverbal. Intubated. LABORATORY AND DIAGNOSTIC DATA: White blood cells 9.8, hemoglobin 11, and platelet 229. UA 15 to 20 white blood cells. BUN 40 creatinine 1.5. ALT 83, AST 125, alkaline phosphatase 61. CRP 14. Urine culture pending. Abdominal x-ray is unremarkable. Chest x-ray on admission large left pleural effusion. ASSESSMENT: The patient is an 88-year-old female with: 1. Aspiration pneumonia. 2. Sepsis. 3. Normal white blood cells. 4. Afebrile. 5. Ventilator-dependent respiratory failure. 6. on pressors. 7. Transaminitis (mostly due to ). PLAN: 1. We will continue the patient on intravenous vancomycin, start the patient on aztreonam and Flagyl for coverage of anaerobes. 2. Monitor CBC. 3. Monitor BMP. 4. Monitor cultures( blood, sputum, and urine). 5. Monitor chest x-ray. 6. Respiratory support. 7. Continue pressors as needed. Based on the clinical course and labs, we will do further recommendation. Thank you, Dr. Cantu and Dr. Nair for following me to participate in the care of this patient. I will follow the patient with you during this hospitalization. Adrian Ames M.D. DR: Tunde JOB#: [id number] CC:
--- NOTE | 2018-08-31 17:49 | Diagnostic Imaging Report ---
Indication: Status post endotracheal tube readjustment Technique: One view of the chest Comparison: 9 hours earlier Findings: Slightly improved position of endotracheal tube, tip now projecting just above the camelia. There is slightly increased patchy infiltrate in the right perihilar region. Left-sided pleural effusion is unchanged. Nasogastric tube remains in place. Impression: Improved position of endotracheal tube Slightly increased patchy right perihilar infiltrate Other stable findings as noted
--- NOTE | 2018-08-31 18:10 | Cardiology Report ---
APPROVED REPORT EXAM: Two-dimensional and M-mode echocardiogram with Doppler and color Doppler. INDICATION Left Ventricular Function M-Mode DIMENSIONS IVSd1.1 (0.7-1.1cm)Left Atrium (MM)2.6 (1.6-4.0cm) LVDd3.2 (3.5-5.6cm)Aortic Root2.8 (2.0-3.7cm) PWd1.2 (0.7-1.1cm)Aortic Cusp Exc.2.0 (1.5-2.0cm) LVDs2.0 (2.5-4.0cm) PWs2.3 cm Technically difficult study due to patient on ventilator and wound on chest blocking scanning view. Study quality precludes accurate assessment of regional wall motion. Normal left ventricular chamber size, systolic function and wall motion. Left ventricular ejection fraction estimated to be 55 %. Mild left ventricular hypertrophy. Small pericardial effusion. Large plueral effusion. All other cardiac chamber sizes are within normal limits. Mild focal aortic valve sclerosis with adequate cusp excursion. Mildly thickened mitral valve leaflets with normal excursion. Mild mitral annulus and aortic root calcification. Normal pulmonic valve structure. Normal tricuspid valve structure. Subcostal views not obtainable. A color flow and spectral Doppler study was performed and revealed: No aortic insufficiency. Mild mitral regurgitation. Mitral inflow velocities could not be assessed due to underlying atrial arrhythmias. Mild tricuspid regurgitation. Tricuspid systolic velocities suggests peak right ventricular systolic pressure of 33 mmHg. Trace pulmonic regurgitation present.
--- NOTE | 2018-08-31 19:53 | Consultation ---
Consult Note Consult Note NEUROLOGY CONSULTATION: Full note dictated #[id number] 88 y/o, ?H, CF, with HTN, R-hip Fx, and dysphagia. She apparently choked on her food and then became unresponsive. The paramedics were called in and it took 30 minutes to resuscitate her. She however again had cardiac arrest. She has been comatose since then she has also had abnormal body jerking movements which at times are in a single extremity and at others are more generalized. The longest such episode lasted 7 minutes as per her nurse. She has also developed shock kidneys, shock liver, an aspiration pneumonia and sepsis. ON EXAM: Bilateral chemosis. Cannot be aroused even on deep pain. EM present on OCM. Pupils NR Corneals subdued Gag absent Only responds to deep pain with stimulus induced myoclonus. Globally absent DTRs with extensor plantars. 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 Questionable seizures. Poor prognosis. REC: Depacon 1.5 G IV now followed by 1 G q 12 H IV. Ativan 2 mg IV PRN prolonged myoclonus or seizure. EEG CT of brain when safe to take to scanner. Wesly Leger M.D., M.S.P.H. Wesly Leger MD Aug 31, 2018 19:53
[2018-08-31] MEDS: Vancomycin 500mg/D5W 110ml IVPB SCH ×2 (20:09)
[2018-08-31] MEDS: Dyna-Hex 2% Top Sol 2oz TOPIC SCH (20:09)
[2018-08-31] MEDS: Pantoprazole Inj IVP SCH (20:10)
--- NOTE | 2018-08-31 20:14 | Internal Med Progress Note ---
Subjective Date of Service: Aug 31, 2018 Physician Name NairSantiago hernandez Attending Physician Ron Cantu MD Current Medications Medications (Trade) Dose Ordered Sig/Regina Route PRN Reason Start Time Stop Time Status Last Admin Dose Admin Acetaminophen (Tylenol) 650 mg Q4H PRN ORAL fever 08/30/18 19:15 09/29/18 19:14 Albuterol/ Ipratropium (Albuterol/ Ipratropium) 3 ml Q4H PRN HHN Shortness of Breath 08/30/18 19:15 09/04/18 19:14 Aztreonam 1 gm/ Dextrose 55 ml @ 110 mls/hr Q8HR IVPB 08/31/18 14:00 09/07/18 13:59 08/31/18 15:03 Chlorhexidine Gluconate (Blanca-Hex 2%) 1 applic DAILY@2000 TOPIC 08/31/18 20:00 09/30/18 19:59 Dextrose/Sodium Chloride 1,000 ml @ 125 mls/hr Q8H IV 08/31/18 09:45 09/30/18 09:44 08/31/18 18:01 Dopamine HCl/ Dextrose 250 ml @ 0 mls/hr Q24H IV 08/30/18 20:00 09/29/18 19:59 08/31/18 18:55 Heparin Sodium (Porcine) (Heparin 5000 units/ml) 5,000 units EVERY 12 HOURS SUBQ 08/30/18 21:00 09/29/18 20:59 08/31/18 10:14 Lorazepam (Ativan 2mg/ml 1ml) 2 mg Q2H PRN IV For Seizures 08/31/18 14:40 09/06/18 14:39 08/31/18 18:16 Metronidazole (Flagyl) 500 mg Q8HR ORAL 08/31/18 14:00 09/07/18 13:59 08/31/18 15:03 Norepinephrine Bitartrate 4 mg/ Dextrose 254 ml @ 0 mls/hr Q24H IV 08/30/18 19:15 09/29/18 19:14 08/31/18 06:05 Ondansetron HCl (Zofran) 4 mg Q6H PRN IVP Nausea & Vomiting 08/30/18 19:15 09/29/18 19:14 Pantoprazole (Protonix) 40 mg EVERY 12 HOURS IVP 08/31/18 21:00 09/30/18 20:59 Polyethylene Glycol (Miralax) 17 gm DAILYPRN PRN NG Constipation 08/31/18 12:00 09/29/18 19:14 Silver Sulfadiazine (Silvadene Cream 25gm) 1 applic TWICE A DAY TOPIC 08/31/18 18:00 09/30/18 08:59 08/31/18 18:09 Valproate Sodium 1000 mg/Dextrose 65 ml @ 32.5 mls/hr EVERY 12 HOURS IV 09/01/18 09:00 10/01/18 08:59 Valproate Sodium 1500 mg/Dextrose 70 ml @ 32.5 mls/hr ONCE IV 08/31/18 21:00 08/31/18 23:59 Vancomycin HCl (Vanco rx to dose) 1 ea DAILY PRN MISC per rx protocol 08/30/18 19:45 09/29/18 19:44 Vancomycin HCl 500 mg/Dextrose 110 ml @ 110 mls/hr Q24H IVPB 08/31/18 20:00 09/05/18 19:59 Allergies: Coded Allergies: PENICILLINS (Verified Allergy, Unknown, 08/30/18) ROS Limited/Unobtainable: Yes Subjective 88 YO F admitted in respiratory failure; S/P cardiac arrest. Intubated and sedated. Cover for Int Ferny-Dr Cantu. ICU Objective Last Vital Signs Date Time Temp Pulse Resp B/P (MAP) Pulse Ox O2 Delivery O2 Flow Rate FiO2 08/31/18 19:00 58 16 160/57 (91) 100 08/31/18 18:56 50 08/31/18 16:00 Mechanical Ventilator 08/31/18 10:30 98.2 08/30/18 17:03 60.0 General Appearance: WD/WN, moderate distress EENT: PERRL/EOMI, normal ENT inspection Neck: non-tender, normal alignment, supple Cardiovascular: normal peripheral pulses, normal rate, regular rhythm, no gallop/murmur, no JVD Respiratory/Chest: crackles/rales, rhonchi - bilaterally, expiratory wheezing Abdomen: normal bowel sounds, non tender, soft, no organomegaly, no mass Extremities: normal inspection 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 Skin: normal pigmentation, warm/dry Laboratory Tests Test 08/31/18 04:20 08/31/18 07:46 08/31/18 10:25 08/31/18 12:30 White Blood Count 9.8 K/UL (4.8-10.8) 12.0 K/UL (4.8-10.8) H Red Blood Count 4.03 M/UL (4.20-5.40) L 3.27 M/UL (4.20-5.40) L Hemoglobin 11.9 G/DL (12.0-16.0) L 9.7 G/DL (12.0-16.0) L Hematocrit 35.9 % (37.0-47.0) L 29.1 % (37.0-47.0) L Mean Corpuscular Volume 89 FL (80-99) 89 FL (80-99) Mean Corpuscular Hemoglobin 29.5 PG (27.0-31.0) 29.8 PG (27.0-31.0) Mean Corpuscular Hemoglobin Concent 33.1 G/DL (32.0-36.0) 33.5 G/DL (32.0-36.0) Red Cell Distribution Width 12.2 % (11.6-14.8) 12.4 % (11.6-14.8) Platelet Count 229 K/UL (150-450) 177 K/UL (150-450) Mean Platelet Volume 7.2 FL (6.5-10.1) 7.1 FL (6.5-10.1) Neutrophils (%) (Auto) % (45.0-75.0) % (45.0-75.0) Lymphocytes (%) (Auto) % (20.0-45.0) % (20.0-45.0) Monocytes (%) (Auto) % (1.0-10.0) % (1.0-10.0) Eosinophils (%) (Auto) % (0.0-3.0) % (0.0-3.0) Basophils (%) (Auto) % (0.0-2.0) % (0.0-2.0) Differential Total Cells Counted 100 100 Neutrophils % (Manual) 83 % (45-75) H 46 % (45-75) Lymphocytes % (Manual) 4 % (20-45) L 6 % (20-45) L Monocytes % (Manual) 4 % (1-10) 2 % (1-10) Eosinophils % (Manual) 0 % (0-3) 0 % (0-3) Basophils % (Manual) 0 % (0-2) 1 % (0-2) Band Neutrophils 9 % (0-8) H 45 % (0-8) H Platelet Estimate Adequate Adequate Platelet Morphology Normal Normal Red Blood Cell Morphology Normal Normal Sodium Level 131 MMOL/L (136-145) L 132 MMOL/L (136-145) L Potassium Level 6.2 MMOL/L (3.5-5.1) #*H 6.1 MMOL/L (3.5-5.1) *H 5.7 MMOL/L (3.5-5.1) H Chloride Level 98 MMOL/L (98-107) 100 MMOL/L (98-107) Carbon Dioxide Level 23 MMOL/L (21-32) 21 MMOL/L (21-32) Anion Gap 10 mmol/L (5-15) 11 mmol/L (5-15) Blood Urea Nitrogen 40 mg/dL (7-18) H 40 mg/dL (7-18) H Creatinine 1.5 MG/DL (0.55-1.30) H 1.7 MG/DL (0.55-1.30) H Estimat Glomerular Filtration Rate mL/min (>60) mL/min (>60) Glucose Level 117 MG/DL (74-106) H 125 MG/DL (74-106) H Calcium Level 8.0 MG/DL (8.5-10.1) L 7.4 MG/DL (8.5-10.1) L Total Bilirubin 0.5 MG/DL (0.2-1.0) 0.5 MG/DL (0.2-1.0) Direct Bilirubin < 0.1 MG/DL (0.0-0.3) Aspartate Amino Transf (AST/SGOT) 125 U/L (15-37) H 110 U/L (15-37) H Alanine Aminotransferase (ALT/SGPT) 83 U/L (12-78) H 77 U/L (12-78) Alkaline Phosphatase 61 U/L (46-116) 57 U/L (46-116) Total Protein 7.4 G/DL (6.4-8.2) 6.2 G/DL (6.4-8.2) L Albumin 2.7 G/DL (3.4-5.0) L 2.2 G/DL (3.4-5.0) L Globulin 4.7 g/dL 4.0 g/dL Albumin/Globulin Ratio 0.6 (1.0-2.7) L 0.6 (1.0-2.7) L Lactic Acid Level 4.00 mmol/L (0.4-2.0) H Phosphorus Level 2.3 MG/DL (2.5-4.9) L 2.2 MG/DL (2.5-4.9) L Magnesium Level 1.6 MG/DL (1.8-2.4) L 1.5 MG/DL (1.8-2.4) L C-Reactive Protein, Quantitative 14.4 mg/dL (0.00-0.90) H Random Amikacin Level 18.7 ug/mL Arterial Blood pH 7.335 (7.350-7.450) Arterial Blood Partial Pressure CO2 36.5 mmHg (35.0-45.0) Arterial Blood Partial Pressure O2 362.7 mmHg (75.0-100.0) H Arterial Blood HCO3 19.0 mmol/L (22.0-26.0) L Arterial Blood Oxygen Saturation 99.4 % (95-100) Arterial Blood Base Excess -6.2 (-2-2) L Tanner Test Positive Uric Acid 5.5 MG/DL (2.6-7.2) Troponin I 6.503 ng/mL (0.000-0.056) Pro-B-Type Natriuretic Peptide 1978 pg/mL (0-125) H Triglycerides Level 62 MG/DL (30-150) Cholesterol Level 114 MG/DL (< 200) LDL Cholesterol 28 mg/dL (<100) HDL Cholesterol 77 MG/DL (40-60) H Cholesterol/HDL Ratio 1.5 (3.3-4.4) L Thyroid Stimulating Hormone (TSH) 12.181 uiU/mL (0.358-3.740) Test 08/31/18 13:35 08/31/18 19:40 Lactic Acid Level 3.00 mmol/L (0.4-2.0) H Pending Troponin I 4.950 ng/mL (0.000-0.056) Microbiology Date/Time Source Procedure Growth Status 08/30/18 17:17 Urine,Clean Catch Urine Culture - Preliminary NO GROWTH Resulted Intake and Output 08/30/18 08/31/18 19:00 07:00 Intake Total 227.818 ml 2419.45203 ml Output Total 300 ml Balance 227.818 ml 2119.78175 ml IV Total 227.818 ml 2419.86129 ml Output Urine Total 300 ml # Voids 2 Assessment/Plan Problem List: (1) Cardiac arrest Assessment & Plan: See cardiology note. (2) Respiratory failure Assessment & Plan: Continue vent per pulmonary (3) Hypotension (4) Aspiration into airway (5) ATN (acute tubular necrosis) Assessment & Plan: see nephrology note. Status: not improved Assessment/Plan Prognosis is guarded Santiago Nair MD Aug 31, 2018 20:14
[2018-08-31] MEDS ORDERED: VALPROATE SODIUM IV SCH (21:00)
[2018-08-31] MEDS ORDERED: D5W IV SCH (21:00)
--- NOTE | 2018-08-31 22:46 | Consultation ---
DATE OF CONSULTATION: 08/31/2018 NEUROLOGY CONSULTATION CONSULTING PHYSICIAN: Wesly Leger M.D. REQUESTING PHYSICIAN: Ron Cantu M.D. HISTORY: Ms. Sarah Mueller is an 88-year-old, lady, of unknown handedness, who does have a past history of hypertension, right hip fracture, and dysphagia. She was functioning relatively well at home until 08/30/2018 when she apparently choked on food and then became unresponsive. The paramedics were called in and it took approximately 30 minutes to resuscitate her. She, however, again had another episode of cardiac arrest, which was for a shorter duration. She has been comatose since then and has been exhibiting some abnormal body jerking movements, which at times are in a single extremity and at other times are generalized. The longest such episode lasted 7 minutes as per her nurse. In the interim, she has also developed a shock liver, shock kidneys, aspiration pneumonia, and sepsis. She has been treated for these problems, but continues to have her abnormal body movements and thus this consultation was requested. The abnormal body movements have responded to Ativan. PAST MEDICAL HISTORY: Significant for hypertension, right hip fracture, and dysphagia. FAMILY HISTORY: Unavailable. PERSONAL HISTORY: Home: She lives at home with her and a caregiver. Work: She is retired. Habits: Unknown. PRESENT MEDICATIONS: Protonix, Depakene 500 mg every 12 hours via nasogastric tube, vancomycin, lorazepam 2 mg q.2 h. p.r.n. IV for seizures, metronidazole, aztreonam, MiraLax, heparin for DVT prophylaxis, dopamine, vancomycin, DuoNeb inhaler, Tylenol p.r.n., Zofran p.r.n., and epinephrine. PHYSICAL EXAMINATION: GENERAL: She is a well-developed and well-nourished lady, lying in bed, in no acute distress, connected to a ventilator via an orotracheal tube. VITAL SIGNS: Pulse 58/minute, blood pressure 160/57 mmHg, respirations 16/minute, temperature 98.2 degrees Fahrenheit. HEAD: Normocephalic and atraumatic. EENT: Examination benign except for bilateral chemosis. NECK: No neck rigidity was observed. NEUROLOGICAL EXAMINATION: MENTAL STATUS EXAMINATION: She was comatose and did not respond even to the painful stimuli other than stimulus- induced myoclonus in the appropriate extremity. SPEECH: Could not be tested. LANGUAGE: Could not be tested. CRANIAL NERVE EXAMINATION: II: She did not blink to threat. III, IV, : The external ocular movements were present, but diminished on oculocephalic maneuvers. The pupils were 3 mm in diameter and did not react to light. V & VII: The corneal reflexes were present, but subdued. VIII: She did not respond to sounds. She did exhibit some opsoclonus from time to time. IX & X: The gag reflex was absent on manipulating the endotracheal tube. XI: The sternocleidomastoids and trapezii did not function. XII: Could not be tested adequately. MOTOR SYSTEM: Tone was normal in all four extremities. Examination of muscle mass revealed generalized muscle wasting. Examination of power was impossible to perform, however, when deep painful stimuli were applied, stimulus-induced myoclonus was seen. SENSORY EXAMINATION: She responded to deep pain with stimulus-induced myoclonus. REFLEXES: 0 at the biceps, triceps, brachioradialis, knees, and ankles. The plantar responses were extensor bilaterally. COORDINATION, STANCE & GAIT: Could not be tested. DIAGNOSTIC IMPRESSION: 1. Ms. Sarah Mueller is an 88-year-old, lady, of unknown handedness, who does have a past history of hypertension, right hip fracture, and dysphagia. She apparently choked on the food and then became unresponsive. It took 30 minutes to resuscitate her. She then had another episode of cardiac arrest. She has been comatose since and has also been exhibiting abnormal body jerking movements. 2. On neurological examination, at this time, she exhibits bilateral chemosis. She cannot be aroused even on deep painful stimuli. Eye movements are present on oculocephalic maneuvers, but subdued. The pupils are nonreactive to light. The corneal reflexes are subdued. The gag reflex is absent. She only responds to deep pain with stimulus-induced myoclonus in the appropriate extremity, which at times spreads to other extremities. She has globally absent deep tendon reflexes with extensor plantar responses bilaterally. 3. Laboratory data on admission revealed a mild anemia with a hemoglobin of 9.6 G. The arterial blood gases revealed a pH of 7.34 with a pCO2 of 44.4 and a pO2 of 321. The chemistry panel revealed a low potassium at 2.9, a BUN of 31 with a creatinine of 1.1, glucose elevated to 168, calcium low at 7.1, an AST of 84 with normal ALT and alkaline phosphatase. A CK-MB elevated to 10.1. A proBNP elevated to 253 and serum albumin of 2.2. The urinalysis revealed 1+ leukocyte esterase, 10-15 red blood cells, and 15-20 white blood cells per high-power field. Her INR was 1.1. 4. 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 The abnormal body movements that we are seeing at this point in time are indicative of postanoxic myoclonus. She also had a questionable seizure earlier. The prognosis for recovery of neurological function is dismal because of the prolonged period where no cardiac rhythm was present, followed by coma and in addition, post anoxic myoclonus. RECOMMENDATIONS: 1. Agree with management thus far. 2. The patient will be given Depacon 1.5 G intravenously now followed by 1 G q.12 h. intravenously and Ativan 2 mg intravenously can be used for prolonged myoclonus or seizures. 3. An EEG should be performed to evaluate the patient for ongoing ictal or interictal phenomena. 4. When the patient is clinically stable, and can get out of the ICU, she should be taken to get a CT scan of the brain. 5. The patient will be observed closely and depending on how she fares over the next day or so. Further recommendations will be given. Thank you for entrusting me with the care of Ms. Mueller. I shall follow her with you. Wesly Leger M.D., M.S.P.H. : ZURI JOB#: [id number] DAISY
--- NOTE | 2018-08-31 23:16 | Consultation ---
DATE OF CONSULTATION: 08/31/2018 NOTE: POOR AUDIO CARDIOLOGY CONSULTATION CONSULTING PHYSICIAN: Imtiaz Moreno M.D. REFERRING PHYSICIAN: Ron Cantu M.D. Karine Berry M.D. REASON FOR CONSULTATION: Status post cardiac arrest with troponin. HISTORY OF PRESENT ILLNESS: The patient is an 88-year-old lady with history of hypertension, hyperlipidemia, and hypothyroidism, who was at home with the family and then suddenly the patient became unresponsive. EMS was called and the patient was intubated in the field, was CPR and epinephrine. The paramedics regained the pulse and was transferred to [facility]. Upon arrival to the emergency room, the patient had idioventricular rhythm, was again resuscitated in the ER, was admitted to intensive care unit. At the time of my evaluation, the patient is unresponsive and already on Levophed and dopamine, and just has a fourth seizure while on the ventilator. REVIEW OF SYSTEMS: Cannot be obtained. PAST MEDICAL HISTORY: Include: 1. Hypertension. 2. Dysphagia. 3. Hyperlipidemia. MEDICATIONS: At home include atenolol 25 daily, Levoxyl 75 mcg daily, daily, Zocor 5 mg daily, and trazodone 150 mg at bedtime. ALLERGIES: She is allergic to penicillin. SOCIAL HISTORY: She lives at home with family. Does not smoke or drink alcohol. PHYSICAL EXAMINATION: VITAL SIGNS: Blood pressure is 104/50, pulse 58, respirations 16, while on dopamine. HEAD AND NECK: Shows she is orally intubated. LUNGS: Have coarse rhonchi. She has on the chest for multiple defibrillations. CARDIOVASCULAR: Regular, S1, S2 with no gallop. ABDOMEN: Soft. EXTREMITIES: No pitting edema. LABORATORY AND DIAGNOSTIC STUDIES: Her EKG showed accelerated junctional rhythm with nonspecific ST abnormalities, prolonged QT of 501 milliseconds. Her labs showed white count of , hemoglobin 11.9, hematocrit 35.9, and platelet count of 229. Sodium 131, potassium was 6.1, BUN of 40, creatinine 1.5, and glucose of 117. Her troponin was 0.022. ASSESSMENT AND PLAN: 1. Status post cardiorespiratory arrest, etiology is not clear at this time. The first troponin was only minimally elevated. We will repeat the cardiac enzymes, get repeat stat EKG and echocardiogram for further evaluation. 2. . The patient was on Levophed and dopamine, could have aspiration pneumonia. 3. Respiratory failure, on the ventilator as well as broad-spectrum IV antibiotics. 4. Accelerated junctional rhythm. Keep the patient on dopamine. We will try to taper off Levophed. 5. Hyperkalemia. initial potassium was 2.9, but currently 6.1 now. 6. Renal failure. Creatinine 1.5. Thank you very much, Dr. Cantu, for allowing me to participate in the care of this patient. Please do not hesitate to contact me for any questions regarding my evaluation. Imtiaz Moreno M.D. DR: OSMEL JOB#: [id number] CC:
--- NOTE | 2018-08-31 23:28 | Consultation ---
History of Present Illness General Chief Complaint: CPR Present Illness HPI 88-year-old female , who does have a past history of hypertension, right hip fracture, and dysphagia. She was functioning relatively well at home and yesterday she apparently choked on the food and then became unresponsive. the pt was resuscitated after 30 min. 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 the pt was having seizure and was agitated last night. the pt has had several doses of ativan, the pts daughter stated that she would like her mom to remain full code. the pt doesn't have a power of regulatory attorney Allergies: Coded Allergies: PENICILLINS (Verified Allergy, Unknown, 08/30/18) Medication History Scheduled Alendronate Sodium* (Fosamax*), 70 MG ORAL ONCE A WEEK, (Reported) Atenolol* (Tenormin*), 25 MG ORAL DAILY, (Reported) Betamethasone Valerate (Betamethasone Valerate), 2 APPLIC TP TWICE A DAY, ( Reported) Ferrous Gluconate (Ferrous Gluconate), 324 MG PO TWICE A DAY, (Reported) Levothyroxine Sodium* (Levothyroxine Sodium*), Unknown Dose ORAL DAILY, ( Reported) Lisinopril/Hydrochlorothiazide 10-12.5 Mg Tab (Lisinopril-Hctz 10-12.5 Mg Tab), 1 TAB ORAL DAILY, (Reported) Ofloxacin (Ofloxacin), 4 DROP BOTH EARS TWICE A DAY, (Reported) Simvastatin (Zocor), 40 MG ORAL EVENING WITH DINNER, (Reported) Trazodone Hcl* (Desyrel*), 50 MG ORAL BEDTIME, (Reported) Scheduled PRN Acetaminophen (Acetaminophen Er), 650 MG ORAL Q8H PRN for For Pain, (Reported) Acetaminophen* (Tylenol Extra Strength*), 500 MG ORAL Q4HR PRN for For Pain, ( Reported) Docusate Sodium* (Docusate Sodium*), 100 MG ORAL TWICE A DAY PRN for Constipation, (Reported) Triamcinolone Acetonide (Triamcinolone Acetonide), 15 GM TP TWICE A DAY PRN for Itching, (Reported) Discontinued Medications Lisinopril (Lisinopril*), Unknown Dose ORAL DAILY, (Reported) Discontinued Reason: Prescription changed Simvastatin (Zocor), 5 MG ORAL BEDTIME, (Reported) Discontinued Reason: Prescription changed Trazodone* (Trazodone*), Unknown Dose ORAL BEDTIME, (Reported) Discontinued Reason: Prescription changed Patient History Limited by: medical condition History Provided By: Family Member, Medical Record, Caregiver, PMD Healthcare decision maker Resuscitation status Full Code Advanced Directive on File No Past Medical/Surgical History Past Medical/Surgical History: (1) Cardiac arrest (2) For cardiopulmonary resuscitation (3) Hypothermia (4) Pleural effusion (5) Respiratory failure (6) Hypotension (7) Aspiration into airway (8) ATN (acute tubular necrosis) (9) Cardiac arrest Review of Systems Psychiatric: Reports: prior hx, anxiety, depressed feelings Physical Exam General Appearance: confused, moderate distress, agitated Last 24 Hour Vital Signs Date Time Temp Pulse Resp B/P (MAP) Pulse Ox O2 Delivery O2 Flow Rate FiO2 08/31/18 22:58 87 17 50 08/31/18 21:02 61 16 50 08/31/18 20:00 Mechanical Ventilator 08/31/18 20:00 50 08/31/18 19:00 58 16 160/57 (91) 100 08/31/18 18:56 58 16 50 08/31/18 18:55 148/68 08/31/18 18:11 70 18 100 08/31/18 18:00 67 16 152/82 (105) 100 08/31/18 17:30 67 16 148/68 (94) 100 08/31/18 17:15 67 16 50 08/31/18 17:00 67 16 152/82 (105) 100 08/31/18 16:00 50 08/31/18 16:00 Mechanical Ventilator 08/31/18 16:00 54 16 142/56 (84) 100 08/31/18 16:00 54 16 148/68 (94) 100 08/31/18 16:00 62 08/31/18 15:30 60 16 153/69 (97) 100 08/31/18 15:00 61 16 145/65 (91) 100 08/31/18 15:00 65 16 50 08/31/18 14:37 Mechanical Ventilator 08/31/18 14:30 64 16 150/79 (102) 100 08/31/18 14:00 133/66 08/31/18 14:00 59 16 133/66 (88) 100 08/31/18 13:30 58 16 146/62 (90) 100 08/31/18 13:00 141/66 08/31/18 13:00 58 16 50 08/31/18 13:00 56 16 141/61 (87) 100 08/31/18 12:30 55 16 132/58 (82) 100 08/31/18 12:00 55 08/31/18 12:00 128/64 08/31/18 12:00 53 16 128/64 (85) 100 08/31/18 12:00 Mechanical Ventilator 08/31/18 12:00 50 08/31/18 11:30 56 16 132/60 (84) 100 08/31/18 11:00 144/51 08/31/18 11:00 64 16 162/61 (94) 100 08/31/18 10:45 63 16 50 08/31/18 10:30 98.2 54 16 146/59 (88) 100 08/31/18 10:00 55 16 152/53 (86) 100 08/31/18 10:00 159/77 08/31/18 09:30 54 16 156/77 (103) 100 08/31/18 09:20 105/50 08/31/18 09:18 57 16 50 08/31/18 09:00 103/52 08/31/18 09:00 60 16 103/50 (67) 100 08/31/18 08:15 58 16 105/50 (68) 100 08/31/18 08:00 50 08/31/18 08:00 57 16 138/51 (80) 100 08/31/18 08:00 57 08/31/18 08:00 105/50 08/31/18 08:00 Mechanical Ventilator 08/31/18 07:45 59 16 139/70 (93) 100 08/31/18 07:30 58 16 137/43 (74) 100 08/31/18 07:15 55 16 138/51 (80) 100 08/31/18 07:10 57 16 50 08/31/18 07:00 98.0 57 16 138/51 (80) 100 08/31/18 07:00 138/51 08/31/18 06:05 119/70 08/31/18 06:00 119/70 08/31/18 06:00 59 16 119/99 (106) 100 08/31/18 05:00 126/54 08/31/18 05:00 59 16 126/54 (78) 100 08/31/18 04:55 59 16 50 08/31/18 04:15 151/62 08/31/18 04:00 Mechanical Ventilator 08/31/18 04:00 61 16 132/97 (109) 100 08/31/18 04:00 132/97 08/31/18 04:00 61 08/31/18 04:00 50 08/31/18 03:00 138/69 08/31/18 03:00 138/69 08/31/18 03:00 58 16 137/71 (93) 100 08/31/18 02:55 61 16 50 08/31/18 02:00 144/99 08/31/18 02:00 144/99 08/31/18 02:00 66 16 144/99 (114) 100 08/31/18 01:00 65 16 50 08/31/18 01:00 124/77 08/31/18 01:00 124/77 08/31/18 01:00 66 16 124/77 (93) 100 08/31/18 00:30 66 16 138/62 (87) 100 08/31/18 00:00 50 08/31/18 00:00 54 16 100/39 (59) 100 08/31/18 00:00 87 08/31/18 00:00 100/39 08/31/18 00:00 100/39 08/31/18 00:00 Mechanical Ventilator 08/30/18 23:30 91 16 140/83 (102) 100 08/30/18 23:22 94 16 50 Intake and Output 08/30/18 08/31/18 19:00 07:00 Intake Total 227.818 ml 2419.37126 ml Output Total 300 ml Balance 227.818 ml 2119.61737 ml IV Total 227.818 ml 2419.64553 ml Output Urine Total 300 ml # Voids 2 Laboratory Tests Test 08/31/18 04:20 08/31/18 07:46 08/31/18 10:25 08/31/18 12:30 White Blood Count 9.8 K/UL (4.8-10.8) 12.0 K/UL (4.8-10.8) H Red Blood Count 4.03 M/UL (4.20-5.40) L 3.27 M/UL (4.20-5.40) L Hemoglobin 11.9 G/DL (12.0-16.0) L 9.7 G/DL (12.0-16.0) L Hematocrit 35.9 % (37.0-47.0) L 29.1 % (37.0-47.0) L Mean Corpuscular Volume 89 FL (80-99) 89 FL (80-99) Mean Corpuscular Hemoglobin 29.5 PG (27.0-31.0) 29.8 PG (27.0-31.0) Mean Corpuscular Hemoglobin Concent 33.1 G/DL (32.0-36.0) 33.5 G/DL (32.0-36.0) Red Cell Distribution Width 12.2 % (11.6-14.8) 12.4 % (11.6-14.8) Platelet Count 229 K/UL (150-450) 177 K/UL (150-450) Mean Platelet Volume 7.2 FL (6.5-10.1) 7.1 FL (6.5-10.1) Neutrophils (%) (Auto) % (45.0-75.0) % (45.0-75.0) Lymphocytes (%) (Auto) % (20.0-45.0) % (20.0-45.0) Monocytes (%) (Auto) % (1.0-10.0) % (1.0-10.0) Eosinophils (%) (Auto) % (0.0-3.0) % (0.0-3.0) Basophils (%) (Auto) % (0.0-2.0) % (0.0-2.0) Differential Total Cells Counted 100 100 Neutrophils % (Manual) 83 % (45-75) H 46 % (45-75) Lymphocytes % (Manual) 4 % (20-45) L 6 % (20-45) L Monocytes % (Manual) 4 % (1-10) 2 % (1-10) Eosinophils % (Manual) 0 % (0-3) 0 % (0-3) Basophils % (Manual) 0 % (0-2) 1 % (0-2) Band Neutrophils 9 % (0-8) H 45 % (0-8) H Platelet Estimate Adequate Adequate Platelet Morphology Normal Normal Red Blood Cell Morphology Normal Normal Sodium Level 131 MMOL/L (136-145) L 132 MMOL/L (136-145) L Potassium Level 6.2 MMOL/L (3.5-5.1) #*H 6.1 MMOL/L (3.5-5.1) *H 5.7 MMOL/L (3.5-5.1) H Chloride Level 98 MMOL/L (98-107) 100 MMOL/L (98-107) Carbon Dioxide Level 23 MMOL/L (21-32) 21 MMOL/L (21-32) Anion Gap 10 mmol/L (5-15) 11 mmol/L (5-15) Blood Urea Nitrogen 40 mg/dL (7-18) H 40 mg/dL (7-18) H Creatinine 1.5 MG/DL (0.55-1.30) H 1.7 MG/DL (0.55-1.30) H Estimat Glomerular Filtration Rate mL/min (>60) mL/min (>60) Glucose Level 117 MG/DL (74-106) H 125 MG/DL (74-106) H Calcium Level 8.0 MG/DL (8.5-10.1) L 7.4 MG/DL (8.5-10.1) L Total Bilirubin 0.5 MG/DL (0.2-1.0) 0.5 MG/DL (0.2-1.0) Direct Bilirubin < 0.1 MG/DL (0.0-0.3) Aspartate Amino Transf (AST/SGOT) 125 U/L (15-37) H 110 U/L (15-37) H Alanine Aminotransferase (ALT/SGPT) 83 U/L (12-78) H 77 U/L (12-78) Alkaline Phosphatase 61 U/L (46-116) 57 U/L (46-116) Total Protein 7.4 G/DL (6.4-8.2) 6.2 G/DL (6.4-8.2) L Albumin 2.7 G/DL (3.4-5.0) L 2.2 G/DL (3.4-5.0) L Globulin 4.7 g/dL 4.0 g/dL Albumin/Globulin Ratio 0.6 (1.0-2.7) L 0.6 (1.0-2.7) L Lactic Acid Level 4.00 mmol/L (0.4-2.0) H Phosphorus Level 2.3 MG/DL (2.5-4.9) L 2.2 MG/DL (2.5-4.9) L Magnesium Level 1.6 MG/DL (1.8-2.4) L 1.5 MG/DL (1.8-2.4) L C-Reactive Protein, Quantitative 14.4 mg/dL (0.00-0.90) H Random Amikacin Level 18.7 ug/mL Arterial Blood pH 7.335 (7.350-7.450) Arterial Blood Partial Pressure CO2 36.5 mmHg (35.0-45.0) Arterial Blood Partial Pressure O2 362.7 mmHg (75.0-100.0) H Arterial Blood HCO3 19.0 mmol/L (22.0-26.0) L Arterial Blood Oxygen Saturation 99.4 % (95-100) Arterial Blood Base Excess -6.2 (-2-2) L Tanner Test Positive Uric Acid 5.5 MG/DL (2.6-7.2) Troponin I 6.503 ng/mL (0.000-0.056) Pro-B-Type Natriuretic Peptide 1978 pg/mL (0-125) H Triglycerides Level 62 MG/DL (30-150) Cholesterol Level 114 MG/DL (< 200) LDL Cholesterol 28 mg/dL (<100) HDL Cholesterol 77 MG/DL (40-60) H Cholesterol/HDL Ratio 1.5 (3.3-4.4) L Thyroid Stimulating Hormone (TSH) 12.181 uiU/mL (0.358-3.740) Test 08/31/18 13:35 08/31/18 19:40 Lactic Acid Level 3.00 mmol/L (0.4-2.0) H 1.90 mmol/L (0.66-2.22) Troponin I 4.950 ng/mL (0.000-0.056) Height (Feet): 5 Height (Inches): 4.00 Weight (Pounds): 123 Medications Current Medications Medications (Trade) Dose Ordered Sig/Regina Route PRN Reason Start Time Stop Time Status Last Admin Dose Admin Acetaminophen (Tylenol) 650 mg Q4H PRN ORAL fever 08/30/18 19:15 09/29/18 19:14 Albuterol/ Ipratropium (Albuterol/ Ipratropium) 3 ml Q4H PRN HHN Shortness of Breath 08/30/18 19:15 09/04/18 19:14 Aztreonam 1 gm/ Dextrose 55 ml @ 110 mls/hr Q8HR IVPB 08/31/18 14:00 09/07/18 13:59 08/31/18 21:52 Chlorhexidine Gluconate (Blanca-Hex 2%) 1 applic DAILY@2000 TOPIC 08/31/18 20:00 09/30/18 19:59 08/31/18 20:09 Dextrose/Sodium Chloride 1,000 ml @ 125 mls/hr Q8H IV 08/31/18 09:45 09/30/18 09:44 08/31/18 18:01 Dopamine HCl/ Dextrose 250 ml @ 0 mls/hr Q24H IV 08/30/18 20:00 09/29/18 19:59 08/31/18 18:55 Heparin Sodium (Porcine) (Heparin 5000 units/ml) 5,000 units EVERY 12 HOURS SUBQ 08/30/18 21:00 09/29/18 20:59 08/31/18 20:10 Lorazepam (Ativan 2mg/ml 1ml) 2 mg Q2H PRN IV For Seizures 08/31/18 14:40 09/06/18 14:39 08/31/18 22:21 Metronidazole (Flagyl) 500 mg Q8HR ORAL 08/31/18 14:00 09/07/18 13:59 08/31/18 21:52 Norepinephrine Bitartrate 4 mg/ Dextrose 254 ml @ 0 mls/hr Q24H IV 08/30/18 19:15 09/29/18 19:14 08/31/18 06:05 Ondansetron HCl (Zofran) 4 mg Q6H PRN IVP Nausea & Vomiting 08/30/18 19:15 09/29/18 19:14 Pantoprazole (Protonix) 40 mg EVERY 12 HOURS IVP 08/31/18 21:00 09/30/18 20:59 08/31/18 20:10 Polyethylene Glycol (Miralax) 17 gm DAILYPRN PRN NG Constipation 08/31/18 12:00 09/29/18 19:14 Silver Sulfadiazine (Silvadene Cream 25gm) 1 applic TWICE A DAY TOPIC 08/31/18 18:00 09/30/18 08:59 08/31/18 18:09 Valproate Sodium 1000 mg/Dextrose 65 ml @ 32.5 mls/hr EVERY 12 HOURS IV 09/01/18 09:00 10/01/18 08:59 Valproate Sodium 1500 mg/Dextrose 70 ml @ 32.5 mls/hr ONCE IV 08/31/18 21:00 08/31/18 23:59 08/31/18 21:51 Vancomycin HCl (Vanco rx to dose) 1 ea DAILY PRN MISC per rx protocol 08/30/18 19:45 09/29/18 19:44 Vancomycin HCl 500 mg/Dextrose 110 ml @ 110 mls/hr Q24H IVPB 08/31/18 20:00 09/05/18 19:59 08/31/18 20:09 Assessment/Plan Problem List: (1) MDD (major depressive disorder) ICD Codes: F32.9 - Major depressive disorder, single episode, unspecified SNOMED: 139370456 (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
[2018-09-01] VITALS (24 sets, daily range): BP systolic 78–154; BP diastolic 37–72
[2018-09-01] MEDS: D5NS 1,000 ML IV SCH ×3 (02:21→17:33)
[2018-09-01] MEDS: DOPamine 400mg/250ml 250 ML IV SCH ×2 (03:57→18:49)
[2018-09-01 05:35] LABS: HEMATOCRIT 26.7 % (37.0-47.0); HEMOGLOBIN 9.1 G/DL (12.0-16.0); MEAN CORPUSCULAR VOLUME 88 FL (80-99); PLATELET COUNT 151 K/UL (150-450); RED BLOOD COUNT 3.05 M/UL (4.20-5.40); WHITE BLOOD COUNT 7.8 K/UL (4.8-10.8)
[2018-09-01 05:54] LABS: ALANINE AMINOTRANSFERASE 59 U/L (12-78); ALBUMIN/GLOBULIN RATIO 0.5 (1.0-2.7); ALKALINE PHOSPHATASE 53 U/L (46-116); ANION GAP 10 mmol/L (5-15); ASPARTATE AMINO TRANSFERASE 84 U/L (15-37); BILIRUBIN,TOTAL 0.4 MG/DL (0.2-1.0); BLOOD UREA NITROGEN 35 mg/dL (7-18); CALCIUM 7.4 MG/DL (8.5-10.1); CARBON DIOXIDE 20 MMOL/L (21-32); CHLORIDE 102 MMOL/L (98-107); CHOLESTEROL 113 MG/DL (< 200); CREATININE 1.4 MG/DL (0.55-1.30); HDL CHOLESTEROL 61 MG/DL (40-60); POTASSIUM 4.1 MMOL/L (3.5-5.1); SODIUM 132 MMOL/L (136-145); TRIGLYCERIDES 46 MG/DL (30-150)
[2018-09-01] MEDS: Aztreonam 1gm in D5W 55ml IVPB SCH ×3 (06:28→22:13)
[2018-09-01] MEDS: metroNIDAZOLE 500mg tab ORAL SCH ×3 (06:28→22:15)
[2018-09-01] MEDS ORDERED: Sodium Phosphate 15 MM in NS 275 ML IVPB ONE (09:00)
[2018-09-01] MEDS: Pantoprazole Inj IVP SCH ×2 (09:17→21:00)
[2018-09-01] MEDS: Valproate Sodium INJ 1,000 MG in D5W 55 ML IV SCH ×2 (09:21→21:48)
[2018-09-01] MEDS: LORazepam Inj 2mg/ml 1ml IV PRN ×2 (09:28→23:45)
[2018-09-01] MEDS: Heparin 5000 units/ml inj SUBQ SCH ×2 (09:47→21:00)
--- NOTE | 2018-09-01 09:53 | Pulmonolgy Critical Care Note ---
Critical Care - Asmt/Plan Problems: (1) ATN (acute tubular necrosis) (2) Cardiac arrest (3) Hypothermia (4) Respiratory failure Respiratory: monitor respiratory rate Cardiac: continue pressors, continue to monitor HR/BP Renal: F/U I&O Infectious Disease: check cultures Gastrointestinal: continue feedings/current rate Endocrine: monitor blood sugar, check TSH Hematologic: monitor H/H, transfuse if hgb<8.5 Neurologic: keep patient comfortable Prophylaxis: Heparin Disposition: keep in ICU Notes Reviewed: music engineer, cardio, renal Discussed with: nurses, consultants, porter sample casemanager orange - Objective Last 24 Hour Vital Signs Date Time Temp Pulse Resp B/P (MAP) Pulse Ox O2 Delivery O2 Flow Rate FiO2 09/01/18 08:57 73 16 50 09/01/18 07:12 77 16 50 09/01/18 07:00 127/56 09/01/18 07:00 98.8 74 16 127/56 (79) 100 09/01/18 06:00 77 16 132/63 (86) 100 09/01/18 06:00 127/57 09/01/18 05:05 77 16 50 09/01/18 05:00 75 16 123/52 (75) 100 09/01/18 05:00 123/52 09/01/18 04:00 Mechanical Ventilator 09/01/18 04:00 50 09/01/18 04:00 84 16 110/59 (76) 100 09/01/18 04:00 110/60 09/01/18 04:00 84 09/01/18 03:57 117/67 09/01/18 03:30 74 16 50 09/01/18 03:00 76 16 127/62 (83) 100 09/01/18 03:00 127/62 09/01/18 02:00 98.8 76 18 131/69 (89) 100 09/01/18 02:00 131/69 09/01/18 01:25 86 16 50 09/01/18 01:00 106/59 09/01/18 01:00 77 18 106/59 (75) 100 09/01/18 00:00 83 09/01/18 00:00 83 18 154/72 (99) 100 09/01/18 00:00 50 09/01/18 00:00 154/72 09/01/18 00:00 Mechanical Ventilator 08/31/18 23:00 70 18 141/66 (91) 100 08/31/18 23:00 126/60 08/31/18 22:58 87 17 50 08/31/18 22:00 70 18 102/63 (76) 100 08/31/18 22:00 141/89 08/31/18 21:02 61 16 50 08/31/18 21:00 97 18 113/74 (87) 100 08/31/18 21:00 176/73 08/31/18 20:09 153/70 08/31/18 20:00 61 08/31/18 20:00 98.5 58 16 130/80 (97) 100 08/31/18 20:00 Mechanical Ventilator 08/31/18 20:00 50 08/31/18 19:00 58 16 160/57 (91) 100 08/31/18 19:00 147/70 08/31/18 18:56 58 16 50 08/31/18 18:55 148/68 08/31/18 18:11 70 18 100 08/31/18 18:00 67 16 152/82 (105) 100 08/31/18 17:30 67 16 148/68 (94) 100 08/31/18 17:15 67 16 50 08/31/18 17:00 67 16 152/82 (105) 100 08/31/18 16:00 50 08/31/18 16:00 Mechanical Ventilator 08/31/18 16:00 54 16 142/56 (84) 100 08/31/18 16:00 54 16 148/68 (94) 100 08/31/18 16:00 62 08/31/18 15:30 60 16 153/69 (97) 100 08/31/18 15:00 61 16 145/65 (91) 100 08/31/18 15:00 65 16 50 08/31/18 14:37 Mechanical Ventilator 08/31/18 14:30 64 16 150/79 (102) 100 08/31/18 14:00 133/66 08/31/18 14:00 59 16 133/66 (88) 100 08/31/18 13:30 58 16 146/62 (90) 100 08/31/18 13:00 141/66 08/31/18 13:00 58 16 50 08/31/18 13:00 56 16 141/61 (87) 100 08/31/18 12:30 55 16 132/58 (82) 100 08/31/18 12:00 55 08/31/18 12:00 128/64 08/31/18 12:00 53 16 128/64 (85) 100 08/31/18 12:00 Mechanical Ventilator 08/31/18 12:00 50 08/31/18 11:30 56 16 132/60 (84) 100 08/31/18 11:00 144/51 08/31/18 11:00 64 16 162/61 (94) 100 08/31/18 10:45 63 16 50 08/31/18 10:30 98.2 54 16 146/59 (88) 100 08/31/18 10:00 55 16 152/53 (86) 100 08/31/18 10:00 159/77 Status: obtunded Condition: critical HEENT: atraumatic Neck: full ROM Lungs: rales, rhonchi Heart: HR/BP unstable Abdomen: soft Extremities: no C/C/E Decubiti: location Micro: Microbiology Date/Time Source Procedure Growth Status 08/30/18 14:30 Blood Blood Culture - Preliminary NO GROWTH AFTER 24 HOURS Resulted 08/30/18 14:15 Blood Blood Culture - Preliminary NO GROWTH AFTER 24 HOURS Resulted 08/30/18 17:17 Urine,Clean Catch Urine Culture - Preliminary NO GROWTH AFTER 24 HOURS Resulted 08/31/18 02:40 Rectum VRE Culture Pending Resulted 08/31/18 02:40 Rectum - Preliminary Resulted Critical Care - Subjective FI02: 50 Vent Support Breath Rate: 16 Vent Support Mode: AC Vent Tidal Volume: 600 Sputum Amount: Scant PEEP: 0.0 PIP: 38 Fluids: d5NS 125 cc/hour Drips: dopamin I&O: Intake and Output 08/31/18 09/01/18 18:59 06:59 Intake Total 1734.972 ml 1979.343 ml Output Total 50 ml 525 ml Balance 1684.972 ml 1454.343 ml Intake Free Water 300 ml IV Total 1434.972 ml 1979.343 ml Output Urine Total 50 ml 525 ml # Voids 1 CXR: ET in good position ET-Tube: 7.5 ET Position: 22 Labs: Laboratory Tests Test 08/31/18 10:25 08/31/18 12:30 08/31/18 13:35 08/31/18 19:40 Arterial Blood pH 7.335 (7.350-7.450) Arterial Blood Partial Pressure CO2 36.5 mmHg (35.0-45.0) Arterial Blood Partial Pressure O2 362.7 mmHg (75.0-100.0) H Arterial Blood HCO3 19.0 mmol/L (22.0-26.0) L Arterial Blood Oxygen Saturation 99.4 % (95-100) Arterial Blood Base Excess -6.2 (-2-2) L Tanner Test Positive White Blood Count 12.0 K/UL (4.8-10.8) H Red Blood Count 3.27 M/UL (4.20-5.40) L Hemoglobin 9.7 G/DL (12.0-16.0) L Hematocrit 29.1 % (37.0-47.0) L Mean Corpuscular Volume 89 FL (80-99) Mean Corpuscular Hemoglobin 29.8 PG (27.0-31.0) Mean Corpuscular Hemoglobin Concent 33.5 G/DL (32.0-36.0) Red Cell Distribution Width 12.4 % (11.6-14.8) Platelet Count 177 K/UL (150-450) Mean Platelet Volume 7.1 FL (6.5-10.1) Neutrophils (%) (Auto) % (45.0-75.0) Lymphocytes (%) (Auto) % (20.0-45.0) Monocytes (%) (Auto) % (1.0-10.0) Eosinophils (%) (Auto) % (0.0-3.0) Basophils (%) (Auto) % (0.0-2.0) Differential Total Cells Counted 100 Neutrophils % (Manual) 46 % (45-75) Lymphocytes % (Manual) 6 % (20-45) L Monocytes % (Manual) 2 % (1-10) Eosinophils % (Manual) 0 % (0-3) Basophils % (Manual) 1 % (0-2) Band Neutrophils 45 % (0-8) H Platelet Estimate Adequate Platelet Morphology Normal Red Blood Cell Morphology Normal Sodium Level 132 MMOL/L (136-145) L Potassium Level 5.7 MMOL/L (3.5-5.1) H Chloride Level 100 MMOL/L (98-107) Carbon Dioxide Level 21 MMOL/L (21-32) Anion Gap 11 mmol/L (5-15) Blood Urea Nitrogen 40 mg/dL (7-18) H Creatinine 1.7 MG/DL (0.55-1.30) H Estimat Glomerular Filtration Rate mL/min (>60) Glucose Level 125 MG/DL (74-106) H Uric Acid 5.5 MG/DL (2.6-7.2) Calcium Level 7.4 MG/DL (8.5-10.1) L Phosphorus Level 2.2 MG/DL (2.5-4.9) L Magnesium Level 1.5 MG/DL (1.8-2.4) L Total Bilirubin 0.5 MG/DL (0.2-1.0) Aspartate Amino Transf (AST/SGOT) 110 U/L (15-37) H Alanine Aminotransferase (ALT/SGPT) 77 U/L (12-78) Alkaline Phosphatase 57 U/L (46-116) Troponin I 6.503 ng/mL (0.000-0.056) 4.950 ng/mL (0.000-0.056) Pro-B-Type Natriuretic Peptide 1978 pg/mL (0-125) H Total Protein 6.2 G/DL (6.4-8.2) L Albumin 2.2 G/DL (3.4-5.0) L Globulin 4.0 g/dL Albumin/Globulin Ratio 0.6 (1.0-2.7) L Triglycerides Level 62 MG/DL (30-150) Cholesterol Level 114 MG/DL (< 200) LDL Cholesterol 28 mg/dL (<100) HDL Cholesterol 77 MG/DL (40-60) H Cholesterol/HDL Ratio 1.5 (3.3-4.4) L Thyroid Stimulating Hormone (TSH) 12.181 uiU/mL (0.358-3.740) Lactic Acid Level 3.00 mmol/L (0.4-2.0) H 1.90 mmol/L (0.66-2.22) Test 09/01/18 03:00 09/01/18 09:00 White Blood Count 7.8 K/UL (4.8-10.8) Red Blood Count 3.05 M/UL (4.20-5.40) L Hemoglobin 9.1 G/DL (12.0-16.0) L Hematocrit 26.7 % (37.0-47.0) L Mean Corpuscular Volume 88 FL (80-99) Mean Corpuscular Hemoglobin 29.7 PG (27.0-31.0) Mean Corpuscular Hemoglobin Concent 34.0 G/DL (32.0-36.0) Red Cell Distribution Width 12.0 % (11.6-14.8) Platelet Count 151 K/UL (150-450) Mean Platelet Volume 6.9 FL (6.5-10.1) Neutrophils (%) (Auto) % (45.0-75.0) Lymphocytes (%) (Auto) % (20.0-45.0) Monocytes (%) (Auto) % (1.0-10.0) Eosinophils (%) (Auto) % (0.0-3.0) Basophils (%) (Auto) % (0.0-2.0) Differential Total Cells Counted 100 Neutrophils % (Manual) 79 % (45-75) H Lymphocytes % (Manual) 14 % (20-45) L Monocytes % (Manual) 2 % (1-10) Eosinophils % (Manual) 0 % (0-3) Basophils % (Manual) 1 % (0-2) Band Neutrophils 4 % (0-8) Platelet Estimate Adequate Platelet Morphology Normal Hypochromasia 2+ Anisocytosis 1+ Sodium Level 132 MMOL/L (136-145) L Potassium Level 4.1 MMOL/L (3.5-5.1) Chloride Level 102 MMOL/L (98-107) Carbon Dioxide Level 20 MMOL/L (21-32) L Anion Gap 10 mmol/L (5-15) Blood Urea Nitrogen 35 mg/dL (7-18) H Creatinine 1.4 MG/DL (0.55-1.30) H Estimat Glomerular Filtration Rate mL/min (>60) Glucose Level 128 MG/DL (74-106) H Calcium Level 7.4 MG/DL (8.5-10.1) L Phosphorus Level 2.0 MG/DL (2.5-4.9) L Magnesium Level 1.4 MG/DL (1.8-2.4) L Total Bilirubin 0.4 MG/DL (0.2-1.0) Aspartate Amino Transf (AST/SGOT) 84 U/L (15-37) H Alanine Aminotransferase (ALT/SGPT) 59 U/L (12-78) Alkaline Phosphatase 53 U/L (46-116) Troponin I 2.533 ng/mL (0.000-0.056) Pro-B-Type Natriuretic Peptide 1580 pg/mL (0-125) H Total Protein 6.0 G/DL (6.4-8.2) L Albumin 2.0 G/DL (3.4-5.0) L Globulin 4.0 g/dL Albumin/Globulin Ratio 0.5 (1.0-2.7) L Triglycerides Level 46 MG/DL (30-150) Cholesterol Level 113 MG/DL (< 200) LDL Cholesterol 31 mg/dL (<100) HDL Cholesterol 61 MG/DL (40-60) H Cholesterol/HDL Ratio 1.9 (3.3-4.4) L Arterial Blood pH 7.511 (7.350-7.450) Arterial Blood Partial Pressure CO2 25.5 mmHg (35.0-45.0) L Arterial Blood Partial Pressure O2 180.9 mmHg (75.0-100.0) H Arterial Blood HCO3 19.9 mmol/L (22.0-26.0) L Arterial Blood Oxygen Saturation 99.0 % (95-100) Arterial Blood Base Excess -2.1 (-2-2) L Tanner Test Positive Karine Berry MD Sep 01, 2018 09:53
--- NOTE | 2018-09-01 09:56 | Diagnostic Imaging Report ---
Indication: Dyspnea Technique: One view of the chest Comparison: 08/31/2018 Findings: Patchy right midlung infiltrate persists. There is questionably increased infiltrate in the right infrahilar region. Left pleural effusion is unchanged. Stable satisfactory positions of endotracheal and nasogastric tubes. Impression: Questionable increased right infrahilar infiltrate. Other stable findings as described.
--- NOTE | 2018-09-01 12:36 | Nephrology Progress Note ---
Assessment/Plan Problem List: (1) ATN (acute tubular necrosis) (2) Hypotension (3) Respiratory failure (4) For cardiopulmonary resuscitation (5) Anoxic brain injury Assessment ATN, Oliguric renal failure- resolving HyperKalemia resolved Respiratory failure acute on Vent Hypotensive improved s/p Code blue- High Troponin is lowering severe anoxic ischemic brain injury Plan poor prognosis NGT for meds IV fluids Monitor renal parameters avoid nephrotoxics Gastric support Neuro eval? Depakote and Ativan discussed with RN Subjective ROS Limited/Unobtainable: Yes Constitutional: Reports: other - comatose Objective Objective Last 24 Hour Vital Signs Date Time Temp Pulse Resp B/P (MAP) Pulse Ox O2 Delivery O2 Flow Rate FiO2 09/01/18 12:00 Mechanical Ventilator 09/01/18 12:00 50 09/01/18 11:00 76 16 96/42 (60) 100 09/01/18 10:36 79 16 50 09/01/18 10:00 78 16 125/47 (73) 100 09/01/18 09:00 74 16 130/63 (85) 100 09/01/18 08:57 73 16 50 09/01/18 08:00 50 09/01/18 08:00 76 09/01/18 08:00 74 16 130/63 (85) 100 09/01/18 08:00 Mechanical Ventilator 09/01/18 07:12 77 16 50 09/01/18 07:00 127/56 09/01/18 07:00 98.8 74 16 127/56 (79) 100 09/01/18 06:00 77 16 132/63 (86) 100 09/01/18 06:00 127/57 09/01/18 05:05 77 16 50 09/01/18 05:00 75 16 123/52 (75) 100 09/01/18 05:00 123/52 09/01/18 04:00 Mechanical Ventilator 09/01/18 04:00 50 09/01/18 04:00 84 16 110/59 (76) 100 09/01/18 04:00 110/60 09/01/18 04:00 84 09/01/18 03:57 117/67 09/01/18 03:30 74 16 50 09/01/18 03:00 76 16 127/62 (83) 100 09/01/18 03:00 127/62 09/01/18 02:00 98.8 76 18 131/69 (89) 100 09/01/18 02:00 131/69 09/01/18 01:25 86 16 50 09/01/18 01:00 106/59 09/01/18 01:00 77 18 106/59 (75) 100 09/01/18 00:00 83 09/01/18 00:00 83 18 154/72 (99) 100 09/01/18 00:00 50 09/01/18 00:00 154/72 09/01/18 00:00 Mechanical Ventilator 08/31/18 23:00 70 18 141/66 (91) 100 08/31/18 23:00 126/60 08/31/18 22:58 87 17 50 08/31/18 22:00 70 18 102/63 (76) 100 08/31/18 22:00 141/89 08/31/18 21:02 61 16 50 08/31/18 21:00 97 18 113/74 (87) 100 08/31/18 21:00 176/73 08/31/18 20:09 153/70 08/31/18 20:00 61 08/31/18 20:00 98.5 58 16 130/80 (97) 100 08/31/18 20:00 Mechanical Ventilator 08/31/18 20:00 50 08/31/18 19:00 58 16 160/57 (91) 100 08/31/18 19:00 147/70 08/31/18 18:56 58 16 50 08/31/18 18:55 148/68 08/31/18 18:11 70 18 100 08/31/18 18:00 67 16 152/82 (105) 100 08/31/18 17:30 67 16 148/68 (94) 100 08/31/18 17:15 67 16 50 08/31/18 17:00 67 16 152/82 (105) 100 08/31/18 16:00 50 08/31/18 16:00 Mechanical Ventilator 08/31/18 16:00 54 16 142/56 (84) 100 08/31/18 16:00 54 16 148/68 (94) 100 08/31/18 16:00 62 08/31/18 15:30 60 16 153/69 (97) 100 08/31/18 15:00 61 16 145/65 (91) 100 08/31/18 15:00 65 16 50 08/31/18 14:37 Mechanical Ventilator 08/31/18 14:30 64 16 150/79 (102) 100 08/31/18 14:00 133/66 18 14:00 59 16 133/66 (88) 100 08/31/18 13:30 58 16 146/62 (90) 100 08/31/18 13:00 141/66 08/31/18 13:00 58 16 50 08/31/18 13:00 56 16 141/61 (87) 100 Intake and Output 08/31/18 09/01/18 18:59 06:59 Intake Total 1734.972 ml 1979.343 ml Output Total 50 ml 525 ml Balance 1684.972 ml 1454.343 ml Intake Free Water 300 ml IV Total 1434.972 ml 1979.343 ml Output Urine Total 50 ml 525 ml # Voids 1 Laboratory Tests 08/31/18 13:35: Lactic Acid Level 3.00H 08/31/18 19:40: Lactic Acid Level 1.90, Troponin I 4.950H 09/01/18 03:00: Troponin I 2.533H, White Blood Count 7.8, Red Blood Count 3.05L, Hemoglobin 9.1L , Hematocrit 26.7L, Mean Corpuscular Volume 88, Mean Corpuscular Hemoglobin 29.7 , Mean Corpuscular Hemoglobin Concent 34.0, Red Cell Distribution Width 12.0, Platelet Count 151, Mean Platelet Volume 6.9, Neutrophils (%) (Auto) , Lymphocytes (%) (Auto) , Monocytes (%) (Auto) , Eosinophils (%) (Auto) , Basophils (%) (Auto) , Differential Total Cells Counted 100, Neutrophils % ( Manual) 79H, Lymphocytes % (Manual) 14L, Monocytes % (Manual) 2, Eosinophils % ( Manual) 0, Basophils % (Manual) 1, Band Neutrophils 4, Platelet Estimate Adequate, Platelet Morphology Normal, Hypochromasia 2+, Anisocytosis 1+, Sodium Level 132L, Potassium Level 4.1, Chloride Level 102, Carbon Dioxide Level 20L, Anion Gap 10, Blood Urea Nitrogen 35H, Creatinine 1.4H, Estimat Glomerular Filtration Rate , Glucose Level 128H, Calcium Level 7.4L, Phosphorus Level 2.0L , Magnesium Level 1.4L, Total Bilirubin 0.4, Aspartate Amino Transf (AST/SGOT) 84H, Alanine Aminotransferase (ALT/SGPT) 59, Alkaline Phosphatase 53, Pro-B- Type Natriuretic Peptide 1580H, Total Protein 6.0L, Albumin 2.0L, Globulin 4.0, Albumin/Globulin Ratio 0.5L, Triglycerides Level 46, Cholesterol Level 113, LDL Cholesterol 31, HDL Cholesterol 61H, Cholesterol/HDL Ratio 1.9L 09/01/18 09:00: Arterial Blood pH 7.511H, Arterial Blood Partial Pressure CO2 25.5L, Arterial Blood Partial Pressure O2 180.9H, Arterial Blood HCO3 19.9L, Arterial Blood Oxygen Saturation 99.0, Arterial Blood Base Excess -2.1L, Tanner Test Positive 09/01/18 10:45: Troponin I 1.552H Height (Feet): 5 Height (Inches): 4.00 Weight (Pounds): 130 Kwadwo Mcfarland MD Sep 01, 2018 12:36
--- NOTE | 2018-09-01 12:38 | Diagnostic Imaging Report ---
Indication: Altered mental status Technique: spiral acquisitions obtained through the brain. Angled axial and coronal 5 x 5 mm slices were reconstructed. No IV contrast utilized. Radiation dose was minimized using automated exposure control Total dose length product 1347.93 mGycm. CTDIvol(s) 70.38 mGy Comparison: none FINDINGS: No acute hemorrhage or edema. No mass effect or midline shift. There is age-related enlargement of the ventricles and extra axial CSF spaces. There is periventricular deep white matter ischemic change. Normal wong-white differentiation. Visualized orbits are unremarkable. There is ethmoid sinus mucosal disease bilaterally. Intact calvarium. There is minimal bilateral mastoid disease IMPRESSION: Chronic and age-related changes. Negative for acute intracranial bleed or mass effect Sinus disease The CT scanner at [facility] is accredited by the [employer] and the scans are performed using protocols designed to limit radiation exposure to as low as reasonably achievable to attain images of sufficient resolution adequate for diagnostic evaluation
--- NOTE | 2018-09-01 15:03 | Neurology Progress Note ---
Interim History Interim History Interim History Ms. Mueller continues to be comatose. There has been no improvement in her level of arousal. The myoclonic jerks have decreased significantly and she has had no prolonged episodes of myoclonus or seizure-like phenomena. She continue to be intubated and artificially ventilated. She is on dopamine for pressure support. Review of Systems Neuro Review of Systems Unable to obtain. Objective Physical Exam Last Vital Signs Date Time Temp Pulse Resp B/P (MAP) Pulse Ox O2 Delivery O2 Flow Rate FiO2 09/01/18 14:40 67 16 50 09/01/18 13:00 121/52 (75) 100 09/01/18 12:00 Mechanical Ventilator 09/01/18 07:00 98.8 08/30/18 17:03 60.0 Laboratory Tests Test 08/31/18 19:40 09/01/18 03:00 09/01/18 09:00 09/01/18 10:45 Lactic Acid Level 1.90 mmol/L (0.66-2.22) Troponin I 4.950 ng/mL (0.000-0.056) 2.533 ng/mL (0.000-0.056) 1.552 ng/mL (0.000-0.056) White Blood Count 7.8 K/UL (4.8-10.8) Red Blood Count 3.05 M/UL (4.20-5.40) L Hemoglobin 9.1 G/DL (12.0-16.0) L Hematocrit 26.7 % (37.0-47.0) L Mean Corpuscular Volume 88 FL (80-99) Mean Corpuscular Hemoglobin 29.7 PG (27.0-31.0) Mean Corpuscular Hemoglobin Concent 34.0 G/DL (32.0-36.0) Red Cell Distribution Width 12.0 % (11.6-14.8) Platelet Count 151 K/UL (150-450) Mean Platelet Volume 6.9 FL (6.5-10.1) Neutrophils (%) (Auto) % (45.0-75.0) Lymphocytes (%) (Auto) % (20.0-45.0) Monocytes (%) (Auto) % (1.0-10.0) Eosinophils (%) (Auto) % (0.0-3.0) Basophils (%) (Auto) % (0.0-2.0) Differential Total Cells Counted 100 Neutrophils % (Manual) 79 % (45-75) H Lymphocytes % (Manual) 14 % (20-45) L Monocytes % (Manual) 2 % (1-10) Eosinophils % (Manual) 0 % (0-3) Basophils % (Manual) 1 % (0-2) Band Neutrophils 4 % (0-8) Platelet Estimate Adequate Platelet Morphology Normal Hypochromasia 2+ Anisocytosis 1+ Sodium Level 132 MMOL/L (136-145) L Potassium Level 4.1 MMOL/L (3.5-5.1) Chloride Level 102 MMOL/L (98-107) Carbon Dioxide Level 20 MMOL/L (21-32) L Anion Gap 10 mmol/L (5-15) Blood Urea Nitrogen 35 mg/dL (7-18) H Creatinine 1.4 MG/DL (0.55-1.30) H Estimat Glomerular Filtration Rate mL/min (>60) Glucose Level 128 MG/DL (74-106) H Calcium Level 7.4 MG/DL (8.5-10.1) L Phosphorus Level 2.0 MG/DL (2.5-4.9) L Magnesium Level 1.4 MG/DL (1.8-2.4) L Total Bilirubin 0.4 MG/DL (0.2-1.0) Aspartate Amino Transf (AST/SGOT) 84 U/L (15-37) H Alanine Aminotransferase (ALT/SGPT) 59 U/L (12-78) Alkaline Phosphatase 53 U/L (46-116) Pro-B-Type Natriuretic Peptide 1580 pg/mL (0-125) H Total Protein 6.0 G/DL (6.4-8.2) L Albumin 2.0 G/DL (3.4-5.0) L Globulin 4.0 g/dL Albumin/Globulin Ratio 0.5 (1.0-2.7) L Triglycerides Level 46 MG/DL (30-150) Cholesterol Level 113 MG/DL (< 200) LDL Cholesterol 31 mg/dL (<100) HDL Cholesterol 61 MG/DL (40-60) H Cholesterol/HDL Ratio 1.9 (3.3-4.4) L Arterial Blood pH 7.511 (7.350-7.450) Arterial Blood Partial Pressure CO2 25.5 mmHg (35.0-45.0) L Arterial Blood Partial Pressure O2 180.9 mmHg (75.0-100.0) H Arterial Blood HCO3 19.9 mmol/L (22.0-26.0) L Arterial Blood Oxygen Saturation 99.0 % (95-100) Arterial Blood Base Excess -2.1 (-2-2) L Tanner Test Positive Neurologic Exam Objective PHYSICAL EXAMINATION: GENERAL: She is a well-developed and well-nourished lady, lying in bed, in no acute distress, connected to a ventilator via an orotracheal tube. HEAD: Normocephalic and atraumatic. EENT: Examination benign except for bilateral chemosis. NECK: No neck rigidity was observed. NEUROLOGICAL EXAMINATION: MENTAL STATUS EXAMINATION: She was comatose and did not respond even to the painful stimuli other than stimulus-induced myoclonus in the appropriate extremity. SPEECH: Could not be tested. LANGUAGE: Could not be tested. CRANIAL NERVE EXAMINATION: II: She did not blink to threat. III, IV, : The external ocular movements were present, but diminished on oculocephalic maneuvers. The pupils were 3 mm in diameter and did not react to light. V & VII: The corneal reflexes were present, but subdued. VIII: She did not respond to sounds. She had no opsoclonus. IX & X: The gag reflex was absent on manipulating the endotracheal tube. XI: The sternocleidomastoids and trapezii did not function. XII: Could not be tested adequately. MOTOR SYSTEM: Tone was normal in all four extremities. Examination of muscle mass revealed generalized muscle wasting. Examination of power was impossible to perform, however, when deep painful stimuli were applied, minimal stimulus-induced myoclonus was seen. SENSORY EXAMINATION: She responded to deep pain with minimal stimulus-induced myoclonus. REFLEXES: 0 at the biceps, triceps, brachioradialis, knees, and ankles. The plantar responses were extensor bilaterally. COORDINATION, STANCE & GAIT: Could not be tested. Impression/Recommendations Diagnostic Impression 1. Ms. Sarah Mueller is an 88-year-old, lady, of unknown handedness, who does have a past history of hypertension, right hip fracture, and dysphagia. She apparently choked on the food and then became unresponsive. It took 30 minutes to resuscitate her. She then had another episode of cardiac arrest. She has been comatose since and has also been exhibiting abnormal body jerking movements. 2. She continues to be comatose. There has been no improvement in her level of arousal. The myoclonic jerks have decreased significantly and she has had no prolonged episodes of myoclonus or seizure-like phenomena. She continue to be intubated and artificially ventilated. She is on dopamine for pressure support. 3. On neurological examination, at this time, she exhibits bilateral chemosis. She cannot be aroused even on deep painful stimuli. Eye movements are present on oculocephalic maneuvers, but subdued. The pupils are nonreactive to light. The corneal reflexes are subdued. The gag reflex is absent. She only responds to deep pain with stimulus-induced myoclonus. She has globally absent deep tendon reflexes with extensor plantar responses bilaterally. 4. Laboratory data on admission revealed a mild anemia with a hemoglobin of 9.6 G. The arterial blood gases revealed a pH of 7.34 with a pCO2 of 44.4 and a pO2 of 321. The chemistry panel revealed a low potassium at 2.9, a BUN of 31 with a creatinine of 1.1, glucose elevated to 168, calcium low at 7.1, an AST of 84 with normal ALT and alkaline phosphatase. A CK-MB elevated to 10.1. A proBNP elevated to 253 and serum albumin of 2.2. The urinalysis revealed 1+ leukocyte esterase, 10-15 red blood cells, and 15-20 white blood cells per high-power field. Her INR was 1.1. 5. The CT of the brain done on 09/01/18 revealed no acute pathology. 6. 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 The abnormal body movements that we are seeing at this point in time are indicative of postanoxic myoclonus. She also had a questionable seizure on 08/31/18. The prognosis for recovery of neurological function is dismal because of the prolonged period where no cardiac rhythm was present, followed by coma and in addition, post anoxic myoclonus. Recommendations 1. Continue present management. 2. Continue Depacon 1 G q.12 h. intravenously and Ativan 2 mg intravenously can be used for prolonged myoclonus or seizures. 3. Await EEG to evaluate the patient for ongoing ictal or interictal phenomena. 4. Observe closely. Wesly Leger M.D., M.S.P.HWesly Peres MD Sep 01, 2018 15:03
--- NOTE | 2018-09-01 15:04 | Cardiac Electrophysiology PN ---
Assessment/Plan Assessment/Plan 1. Status post cardiorespiratory arrest, etiology is not clear at this time. Troponin are marginally elevated and could be due to prolonged CPR and multiple shocks. Echocardiogram Nl EF 2. Troponin elevation. Peak Troponin 6. Down to 1. No acute ST-T changes. 3. Shock. On dopamine, could have aspiration pneumonia. 4. Respiratory failure, on the ventilator as well as broad-spectrum IV antibiotics. 5. Accelerated junctional rhythm. Keep the patient on dopamine. 6. Hyperkalemia. Initial potassium was 2.9, but currently 6.1 now. 7. Renal failure. Creatinine 1.5. 8. 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 Still has twitches but no seizures Objective Last 24 Hour Vital Signs Date Time Temp Pulse Resp B/P (MAP) Pulse Ox O2 Delivery O2 Flow Rate FiO2 09/01/18 14:40 67 16 50 09/01/18 13:00 66 16 121/52 (75) 100 09/01/18 12:53 67 16 50 09/01/18 12:00 Mechanical Ventilator 09/01/18 12:00 67 16 78/37 (51) 100 09/01/18 12:00 50 09/01/18 12:00 67 09/01/18 11:00 76 16 96/42 (60) 100 09/01/18 10:36 79 16 50 09/01/18 10:00 78 16 125/47 (73) 100 09/01/18 09:00 74 16 130/63 (85) 100 09/01/18 08:57 73 16 50 09/01/18 08:00 50 09/01/18 08:00 76 09/01/18 08:00 74 16 130/63 (85) 100 09/01/18 08:00 Mechanical Ventilator 09/01/18 07:12 77 16 50 09/01/18 07:00 127/56 09/01/18 07:00 98.8 74 16 127/56 (79) 100 09/01/18 06:00 77 16 132/63 (86) 100 09/01/18 06:00 127/57 09/01/18 05:05 77 16 50 09/01/18 05:00 75 16 123/52 (75) 100 09/01/18 05:00 123/52 09/01/18 04:00 Mechanical Ventilator 09/01/18 04:00 50 09/01/18 04:00 84 16 110/59 (76) 100 09/01/18 04:00 110/60 09/01/18 04:00 84 09/01/18 03:57 117/67 09/01/18 03:30 74 16 50 09/01/18 03:00 76 16 127/62 (83) 100 09/01/18 03:00 127/62 09/01/18 02:00 98.8 76 18 131/69 (89) 100 09/01/18 02:00 131/69 09/01/18 01:25 86 16 50 09/01/18 01:00 106/59 09/01/18 01:00 77 18 106/59 (75) 100 09/01/18 00:00 83 09/01/18 00:00 83 18 154/72 (99) 100 09/01/18 00:00 50 09/01/18 00:00 154/72 09/01/18 00:00 Mechanical Ventilator 08/31/18 23:00 70 18 141/66 (91) 100 08/31/18 23:00 126/60 08/31/18 22:58 87 17 50 08/31/18 22:00 70 18 102/63 (76) 100 08/31/18 22:00 141/89 08/31/18 21:02 61 16 50 08/31/18 21:00 97 18 113/74 (87) 100 08/31/18 21:00 176/73 08/31/18 20:09 153/70 08/31/18 20:00 61 08/31/18 20:00 98.5 58 16 130/80 (97) 100 08/31/18 20:00 Mechanical Ventilator 08/31/18 20:00 50 08/31/18 19:00 58 16 160/57 (91) 100 08/31/18 19:00 147/70 08/31/18 18:56 58 16 50 08/31/18 18:55 148/68 08/31/18 18:11 70 18 100 08/31/18 18:00 67 16 152/82 (105) 100 08/31/18 17:30 67 16 148/68 (94) 100 08/31/18 17:15 67 16 50 08/31/18 17:00 67 16 152/82 (105) 100 08/31/18 16:00 50 08/31/18 16:00 Mechanical Ventilator 08/31/18 16:00 54 16 142/56 (84) 100 08/31/18 16:00 54 16 148/68 (94) 100 08/31/18 16:00 62 08/31/18 15:30 60 16 153/69 (97) 100 08/31/18 15:00 61 16 145/65 (91) 100 08/31/18 15:00 65 16 50 Intake and Output 08/31/18 09/01/18 18:59 06:59 Intake Total 1734.972 ml 1979.343 ml Output Total 50 ml 525 ml Balance 1684.972 ml 1454.343 ml Intake Free Water 300 ml IV Total 1434.972 ml 1979.343 ml Output Urine Total 50 ml 525 ml # Voids 1 Laboratory Tests Test 08/31/18 19:40 09/01/18 03:00 09/01/18 09:00 09/01/18 10:45 Lactic Acid Level 1.90 mmol/L (0.66-2.22) Troponin I 4.950 ng/mL (0.000-0.056) 2.533 ng/mL (0.000-0.056) 1.552 ng/mL (0.000-0.056) White Blood Count 7.8 K/UL (4.8-10.8) Red Blood Count 3.05 M/UL (4.20-5.40) L Hemoglobin 9.1 G/DL (12.0-16.0) L Hematocrit 26.7 % (37.0-47.0) L Mean Corpuscular Volume 88 FL (80-99) Mean Corpuscular Hemoglobin 29.7 PG (27.0-31.0) Mean Corpuscular Hemoglobin Concent 34.0 G/DL (32.0-36.0) Red Cell Distribution Width 12.0 % (11.6-14.8) Platelet Count 151 K/UL (150-450) Mean Platelet Volume 6.9 FL (6.5-10.1) Neutrophils (%) (Auto) % (45.0-75.0) Lymphocytes (%) (Auto) % (20.0-45.0) Monocytes (%) (Auto) % (1.0-10.0) Eosinophils (%) (Auto) % (0.0-3.0) Basophils (%) (Auto) % (0.0-2.0) Differential Total Cells Counted 100 Neutrophils % (Manual) 79 % (45-75) H Lymphocytes % (Manual) 14 % (20-45) L Monocytes % (Manual) 2 % (1-10) Eosinophils % (Manual) 0 % (0-3) Basophils % (Manual) 1 % (0-2) Band Neutrophils 4 % (0-8) Platelet Estimate Adequate Platelet Morphology Normal Hypochromasia 2+ Anisocytosis 1+ Sodium Level 132 MMOL/L (136-145) L Potassium Level 4.1 MMOL/L (3.5-5.1) Chloride Level 102 MMOL/L (98-107) Carbon Dioxide Level 20 MMOL/L (21-32) L Anion Gap 10 mmol/L (5-15) Blood Urea Nitrogen 35 mg/dL (7-18) H Creatinine 1.4 MG/DL (0.55-1.30) H Estimat Glomerular Filtration Rate mL/min (>60) Glucose Level 128 MG/DL (74-106) H Calcium Level 7.4 MG/DL (8.5-10.1) L Phosphorus Level 2.0 MG/DL (2.5-4.9) L Magnesium Level 1.4 MG/DL (1.8-2.4) L Total Bilirubin 0.4 MG/DL (0.2-1.0) Aspartate Amino Transf (AST/SGOT) 84 U/L (15-37) H Alanine Aminotransferase (ALT/SGPT) 59 U/L (12-78) Alkaline Phosphatase 53 U/L (46-116) Pro-B-Type Natriuretic Peptide 1580 pg/mL (0-125) H Total Protein 6.0 G/DL (6.4-8.2) L Albumin 2.0 G/DL (3.4-5.0) L Globulin 4.0 g/dL Albumin/Globulin Ratio 0.5 (1.0-2.7) L Triglycerides Level 46 MG/DL (30-150) Cholesterol Level 113 MG/DL (< 200) LDL Cholesterol 31 mg/dL (<100) HDL Cholesterol 61 MG/DL (40-60) H Cholesterol/HDL Ratio 1.9 (3.3-4.4) L Arterial Blood pH 7.511 (7.350-7.450) Arterial Blood Partial Pressure CO2 25.5 mmHg (35.0-45.0) L Arterial Blood Partial Pressure O2 180.9 mmHg (75.0-100.0) H Arterial Blood HCO3 19.9 mmol/L (22.0-26.0) L Arterial Blood Oxygen Saturation 99.0 % (95-100) Arterial Blood Base Excess -2.1 (-2-2) L Tanner Test Positive Microbiology Date/Time Source Procedure Growth Status 08/30/18 14:30 Blood Blood Culture - Preliminary NO GROWTH AFTER 24 HOURS Resulted 08/30/18 14:15 Blood Blood Culture - Preliminary NO GROWTH AFTER 24 HOURS Resulted 08/30/18 17:17 Urine,Clean Catch Urine Culture - Preliminary NO GROWTH AFTER 24 HOURS Resulted 08/31/18 02:40 Rectum VRE Culture Pending Resulted 08/31/18 02:40 Rectum - Preliminary Resulted Objective HEAD AND NECK: Orally intubated.NG tube is in. LUNGS: Have coarse rhonchi. CARDIOVASCULAR: Regular, S1, S2 with no gallop. ABDOMEN: Soft. EXTREMITIES: No pitting edema. Imtiaz Moreno MD Sep 01, 2018 15:04
[2018-09-01] MEDS ORDERED: COUMADIN5 MG ORAL (16:31)
--- NOTE | 2018-09-01 19:01 | Internal Med Progress Note ---
Subjective Date of Service: Sep 01, 2018 Physician Name Santiago Nair Attending Physician Ron Cantu MD Current Medications Medications (Trade) Dose Ordered Sig/Regina Route PRN Reason Start Time Stop Time Status Last Admin Dose Admin Acetaminophen (Tylenol) 650 mg Q4H PRN ORAL fever 08/30/18 19:15 09/29/18 19:14 Albuterol/ Ipratropium (Albuterol/ Ipratropium) 3 ml Q4H PRN HHN Shortness of Breath 08/30/18 19:15 09/04/18 19:14 Aztreonam 1 gm/ Dextrose 55 ml @ 110 mls/hr Q8HR IVPB 08/31/18 14:00 09/07/18 13:59 09/01/18 14:51 Chlorhexidine Gluconate (Blanca-Hex 2%) 1 applic DAILY@2000 TOPIC 08/31/18 20:00 09/30/18 19:59 08/31/18 20:09 Dextrose/Sodium Chloride 1,000 ml @ 125 mls/hr Q8H IV 08/31/18 09:45 09/30/18 09:44 09/01/18 17:33 Dopamine HCl/ Dextrose 250 ml @ 0 mls/hr Q24H IV 08/30/18 20:00 09/29/18 19:59 09/01/18 18:49 Heparin Sodium (Porcine) (Heparin 5000 units/ml) 5,000 units EVERY 12 HOURS SUBQ 08/30/18 21:00 09/29/18 20:59 09/01/18 09:47 Lorazepam (Ativan 2mg/ml 1ml) 2 mg Q2H PRN IV For Seizures 08/31/18 14:40 09/06/18 14:39 09/01/18 09:28 Metronidazole (Flagyl) 500 mg Q8HR ORAL 08/31/18 14:00 09/07/18 13:59 09/01/18 16:09 Norepinephrine Bitartrate 4 mg/ Dextrose 254 ml @ 0 mls/hr Q24H IV 08/30/18 19:15 09/29/18 19:14 08/31/18 06:05 Ondansetron HCl (Zofran) 4 mg Q6H PRN IVP Nausea & Vomiting 08/30/18 19:15 09/29/18 19:14 Pantoprazole (Protonix) 40 mg EVERY 12 HOURS IVP 08/31/18 21:00 09/30/18 20:59 09/01/18 09:17 Polyethylene Glycol (Miralax) 17 gm DAILYPRN PRN NG Constipation 08/31/18 12:00 09/29/18 19:14 Silver Sulfadiazine (Silvadene Cream 25gm) 1 applic TWICE A DAY TOPIC 08/31/18 18:00 09/30/18 08:59 09/01/18 18:38 Valproate Sodium 1000 mg/Dextrose 65 ml @ 32.5 mls/hr EVERY 12 HOURS IV 09/01/18 09:00 10/01/18 08:59 09/01/18 09:21 Vancomycin HCl (Vanco rx to dose) 1 ea DAILY PRN MISC per rx protocol 08/30/18 19:45 09/29/18 19:44 Vancomycin HCl 500 mg/Dextrose 110 ml @ 110 mls/hr Q24H IVPB 08/31/18 20:00 09/05/18 19:59 08/31/18 20:09 Allergies: Coded Allergies: PENICILLINS (Verified Allergy, Unknown, 08/30/18) ROS Limited/Unobtainable: Yes Subjective 88 YO F admitted in respiratory failure; S/P cardiac arrest. Intubated and sedated. Continues on dopamine drip. Cover for Int Ferny-Dr Cantu. ICU Objective Last Vital Signs Date Time Temp Pulse Resp B/P (MAP) Pulse Ox O2 Delivery O2 Flow Rate FiO2 09/01/18 18:49 114/47 09/01/18 16:31 62 16 50 09/01/18 16:00 Mechanical Ventilator 09/01/18 15:00 100 09/01/18 14:00 97.6 08/30/18 17:03 60.0 Laboratory Tests Test 08/31/18 19:40 09/01/18 03:00 09/01/18 09:00 09/01/18 10:45 Lactic Acid Level 1.90 mmol/L (0.66-2.22) Troponin I 4.950 ng/mL (0.000-0.056) 2.533 ng/mL (0.000-0.056) 1.552 ng/mL (0.000-0.056) White Blood Count 7.8 K/UL (4.8-10.8) Red Blood Count 3.05 M/UL (4.20-5.40) L Hemoglobin 9.1 G/DL (12.0-16.0) L Hematocrit 26.7 % (37.0-47.0) L Mean Corpuscular Volume 88 FL (80-99) Mean Corpuscular Hemoglobin 29.7 PG (27.0-31.0) Mean Corpuscular Hemoglobin Concent 34.0 G/DL (32.0-36.0) Red Cell Distribution Width 12.0 % (11.6-14.8) Platelet Count 151 K/UL (150-450) Mean Platelet Volume 6.9 FL (6.5-10.1) Neutrophils (%) (Auto) % (45.0-75.0) Lymphocytes (%) (Auto) % (20.0-45.0) Monocytes (%) (Auto) % (1.0-10.0) Eosinophils (%) (Auto) % (0.0-3.0) Basophils (%) (Auto) % (0.0-2.0) Differential Total Cells Counted 100 Neutrophils % (Manual) 79 % (45-75) H Lymphocytes % (Manual) 14 % (20-45) L Monocytes % (Manual) 2 % (1-10) Eosinophils % (Manual) 0 % (0-3) Basophils % (Manual) 1 % (0-2) Band Neutrophils 4 % (0-8) Platelet Estimate Adequate Platelet Morphology Normal Hypochromasia 2+ Anisocytosis 1+ Sodium Level 132 MMOL/L (136-145) L Potassium Level 4.1 MMOL/L (3.5-5.1) Chloride Level 102 MMOL/L (98-107) Carbon Dioxide Level 20 MMOL/L (21-32) L Anion Gap 10 mmol/L (5-15) Blood Urea Nitrogen 35 mg/dL (7-18) H Creatinine 1.4 MG/DL (0.55-1.30) H Estimat Glomerular Filtration Rate mL/min (>60) Glucose Level 128 MG/DL (74-106) H Calcium Level 7.4 MG/DL (8.5-10.1) L Phosphorus Level 2.0 MG/DL (2.5-4.9) L Magnesium Level 1.4 MG/DL (1.8-2.4) L Total Bilirubin 0.4 MG/DL (0.2-1.0) Aspartate Amino Transf (AST/SGOT) 84 U/L (15-37) H Alanine Aminotransferase (ALT/SGPT) 59 U/L (12-78) Alkaline Phosphatase 53 U/L (46-116) Pro-B-Type Natriuretic Peptide 1580 pg/mL (0-125) H Total Protein 6.0 G/DL (6.4-8.2) L Albumin 2.0 G/DL (3.4-5.0) L Globulin 4.0 g/dL Albumin/Globulin Ratio 0.5 (1.0-2.7) L Triglycerides Level 46 MG/DL (30-150) Cholesterol Level 113 MG/DL (< 200) LDL Cholesterol 31 mg/dL (<100) HDL Cholesterol 61 MG/DL (40-60) H Cholesterol/HDL Ratio 1.9 (3.3-4.4) L Arterial Blood pH 7.511 (7.350-7.450) Arterial Blood Partial Pressure CO2 25.5 mmHg (35.0-45.0) L Arterial Blood Partial Pressure O2 180.9 mmHg (75.0-100.0) H Arterial Blood HCO3 19.9 mmol/L (22.0-26.0) L Arterial Blood Oxygen Saturation 99.0 % (95-100) Arterial Blood Base Excess -2.1 (-2-2) L Tanner Test Positive Microbiology Date/Time Source Procedure Growth Status 08/30/18 14:30 Blood Blood Culture - Preliminary NO GROWTH AFTER 24 HOURS Resulted 08/30/18 14:15 Blood Blood Culture - Preliminary NO GROWTH AFTER 24 HOURS Resulted 08/30/18 17:17 Urine,Clean Catch Urine Culture - Preliminary NO GROWTH AFTER 24 HOURS Resulted 08/31/18 02:40 Rectum VRE Culture Pending Resulted 08/31/18 02:40 Rectum - Preliminary Resulted Intake and Output 08/31/18 09/01/18 19:00 07:00 Intake Total 1737.112 ml 2020.055 ml Output Total 50 ml 605 ml Balance 1687.112 ml 1415.055 ml Intake Free Water 300 ml IV Total 1437.112 ml 2020.055 ml Output Urine Total 50 ml 605 ml # Voids 1 Objective General Appearance: WD/WN, moderate distress EENT: PERRL/EOMI, normal ENT inspection Neck: non-tender, normal alignment, supple Cardiovascular: normal peripheral pulses, normal rate, regular rhythm, no gallop/murmur, no JVD Respiratory/Chest: Mech vent; crackles/rales, rhonchi - bilaterally, expiratory wheezing Abdomen: normal bowel sounds, non tender, soft, no organomegaly, no mass Extremities: normal inspection Neurologic: condenser cleaner II-XII grossly normal Skin: normal pigmentation, warm/dry Assessment/Plan Problem List: (1) Cardiac arrest Assessment & Plan: See cardiology note. (2) Respiratory failure Assessment & Plan: Continue vent per pulmonary (3) Hypotension Assessment & Plan: Continue dopamine (4) Aspiration into airway Assessment & Plan: Continue vanco, flagyl and aztreonam per ID (5) ATN (acute tubular necrosis) Assessment & Plan: see nephrology note. (6) Elevated troponin Assessment & Plan: See cardiology note. (7) Anoxic brain injury Assessment & Plan: See neurology note. (8) Seizure disorder Assessment & Plan: Continue depakote per neurology Status: not improved Assessment/Plan Prognosis is guarded Santiago Nair MD Sep 01, 2018 19:01
[2018-09-01] MEDS: Vancomycin 500mg/D5W 110ml IVPB SCH ×2 (20:51)
[2018-09-01] MEDS: Dyna-Hex 2% Top Sol 2oz TOPIC SCH (20:51)
--- NOTE | 2018-09-01 21:09 | General Progress Note ---
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 (3) Anoxic brain injury ICD Codes: G93.1 - Anoxic brain damage, not elsewhere classified SNOMED: 168940067 Status: unchanged Assessment/Plan the trazodone was dced the pt was on it before admission Depakote was ordered for seizures Ativan iv for agitation the pts daughter is the decision maker per daughter the pts has dementia Subjective Date patient seen: Sep 01, 2018 Neurologic/Psychiatric: Reports: anxiety Allergies: Coded Allergies: PENICILLINS (Verified Allergy, Unknown, 08/30/18) Subjective agitated lethargic Objective Last 24 Hour Vital Signs Date Time Temp Pulse Resp B/P (MAP) Pulse Ox O2 Delivery O2 Flow Rate FiO2 09/01/18 19:21 65 16 50 09/01/18 19:00 64 16 119/53 (75) 100 09/01/18 18:49 114/47 09/01/18 18:00 61 16 113/54 (73) 100 09/01/18 17:00 63 16 115/56 (75) 100 09/01/18 16:31 62 16 50 09/01/18 16:00 97.5 62 16 126/58 (80) 100 09/01/18 16:00 Mechanical Ventilator 09/01/18 16:00 50 09/01/18 16:00 60 09/01/18 15:00 65 16 112/48 (69) 100 09/01/18 14:40 67 16 50 09/01/18 14:00 97.6 65 16 113/48 (69) 100 09/01/18 13:00 66 16 121/52 (75) 100 09/01/18 12:53 67 16 50 09/01/18 12:00 Mechanical Ventilator 09/01/18 12:00 67 16 78/37 (51) 100 09/01/18 12:00 50 09/01/18 12:00 76/41 09/01/18 12:00 67 09/01/18 11:00 96/42 09/01/18 11:00 76 16 96/42 (60) 100 09/01/18 10:36 79 16 50 09/01/18 10:30 125/46 09/01/18 10:00 125/47 09/01/18 10:00 78 16 125/47 (73) 100 09/01/18 09:21 134/64 09/01/18 09:00 74 16 130/63 (85) 100 09/01/18 09:00 130/63 09/01/18 08:57 73 16 50 09/01/18 08:30 132/60 09/01/18 08:00 50 09/01/18 08:00 76 09/01/18 08:00 130/63 09/01/18 08:00 74 16 130/63 (85) 100 09/01/18 08:00 Mechanical Ventilator 09/01/18 07:12 77 16 50 09/01/18 07:00 127/56 09/01/18 07:00 98.8 74 16 127/56 (79) 100 09/01/18 06:00 77 16 132/63 (86) 100 09/01/18 06:00 127/57 09/01/18 05:05 77 16 50 09/01/18 05:00 75 16 123/52 (75) 100 09/01/18 05:00 123/52 09/01/18 04:00 Mechanical Ventilator 09/01/18 04:00 50 09/01/18 04:00 84 16 110/59 (76) 100 09/01/18 04:00 110/60 09/01/18 04:00 84 09/01/18 03:57 117/67 09/01/18 03:30 74 16 50 09/01/18 03:00 76 16 127/62 (83) 100 09/01/18 03:00 127/62 09/01/18 02:00 98.8 76 18 131/69 (89) 100 09/01/18 02:00 131/69 09/01/18 01:25 86 16 50 09/01/18 01:00 106/59 09/01/18 01:00 77 18 106/59 (75) 100 09/01/18 00:00 83 09/01/18 00:00 83 18 154/72 (99) 100 09/01/18 00:00 50 09/01/18 00:00 154/72 09/01/18 00:00 Mechanical Ventilator 08/31/18 23:00 70 18 141/66 (91) 100 08/31/18 23:00 126/60 08/31/18 22:58 87 17 50 08/31/18 22:00 70 18 102/63 (76) 100 08/31/18 22:00 141/89 Intake and Output 08/31/18 09/01/18 19:00 07:00 Intake Total 1737.112 ml 2020.055 ml Output Total 50 ml 605 ml Balance 1687.112 ml 1415.055 ml Intake Free Water 300 ml IV Total 1437.112 ml 2020.055 ml Output Urine Total 50 ml 605 ml # Voids 1 Laboratory Tests 09/01/18 03:00: White Blood Count 7.8, Red Blood Count 3.05L, Hemoglobin 9.1L, Hematocrit 26.7L , Mean Corpuscular Volume 88, Mean Corpuscular Hemoglobin 29.7, Mean Corpuscular Hemoglobin Concent 34.0, Red Cell Distribution Width 12.0, Platelet Count 151, Mean Platelet Volume 6.9, Neutrophils (%) (Auto) , Lymphocytes (%) ( Auto) , Monocytes (%) (Auto) , Eosinophils (%) (Auto) , Basophils (%) (Auto) , Differential Total Cells Counted 100, Neutrophils % (Manual) 79H, Lymphocytes % (Manual) 14L, Monocytes % (Manual) 2, Eosinophils % (Manual) 0, Basophils % ( Manual) 1, Band Neutrophils 4, Platelet Estimate Adequate, Platelet Morphology Normal, Hypochromasia 2+, Anisocytosis 1+, Sodium Level 132L, Potassium Level 4.1, Chloride Level 102, Carbon Dioxide Level 20L, Anion Gap 10, Blood Urea Nitrogen 35H, Creatinine 1.4H, Estimat Glomerular Filtration Rate , Glucose Level 128H, Calcium Level 7.4L, Phosphorus Level 2.0L, Magnesium Level 1.4L, Total Bilirubin 0.4, Aspartate Amino Transf (AST/SGOT) 84H, Alanine Aminotransferase (ALT/SGPT) 59, Alkaline Phosphatase 53, Troponin I 2.533H, Pro- B-Type Natriuretic Peptide 1580H, Total Protein 6.0L, Albumin 2.0L, Globulin 4.0 , Albumin/Globulin Ratio 0.5L, Triglycerides Level 46, Cholesterol Level 113, LDL Cholesterol 31, HDL Cholesterol 61H, Cholesterol/HDL Ratio 1.9L 09/01/18 09:00: Arterial Blood pH 7.511H, Arterial Blood Partial Pressure CO2 25.5L, Arterial Blood Partial Pressure O2 180.9H, Arterial Blood HCO3 19.9L, Arterial Blood Oxygen Saturation 99.0, Arterial Blood Base Excess -2.1L, Tanner Test Positive 09/01/18 10:45: Troponin I 1.552H Height (Feet): 5 Height (Inches): 4.00 Weight (Pounds): 130 General Appearance: lethargic, agitated Danna Pal MD Sep 01, 2018 21:09
[2018-09-02] VITALS (26 sets, daily range): BP systolic 74–138; BP diastolic 33–72
[2018-09-02] MEDS: D5NS 1,000 ML IV SCH ×4 (01:45→19:50)
[2018-09-02 05:15] LABS: HEMATOCRIT 25.5 % (37.0-47.0); HEMOGLOBIN 8.6 G/DL (12.0-16.0); MEAN CORPUSCULAR VOLUME 88 FL (80-99); PLATELET COUNT 143 K/UL (150-450); RED BLOOD COUNT 2.91 M/UL (4.20-5.40); RED CELL DISTRIBUTION WIDTH 12.3 % (11.6-14.8); WHITE BLOOD COUNT 4.5 K/UL (4.8-10.8)
[2018-09-02 05:42] LABS: ALANINE AMINOTRANSFERASE 41 U/L (12-78); ALBUMIN 1.6 G/DL (3.4-5.0); ALBUMIN/GLOBULIN RATIO 0.4 (1.0-2.7); ALKALINE PHOSPHATASE 49 U/L (46-116); ANION GAP 9 mmol/L (5-15); ASPARTATE AMINO TRANSFERASE 47 U/L (15-37); BILIRUBIN,TOTAL 0.4 MG/DL (0.2-1.0); BLOOD UREA NITROGEN 22 mg/dL (7-18); CALCIUM 7.3 MG/DL (8.5-10.1); CARBON DIOXIDE 22 MMOL/L (21-32); CHLORIDE 105 MMOL/L (98-107); SODIUM 136 MMOL/L (136-145)
[2018-09-02] MEDS: Aztreonam 1gm in D5W 55ml IVPB SCH ×3 (06:14→22:00)
[2018-09-02] MEDS: metroNIDAZOLE 500mg tab ORAL SCH ×3 (06:15→22:01)
[2018-09-02 06:31] LABS: POTASSIUM 2.4 MMOL/L (3.5-5.1)
[2018-09-02] MEDS: Heparin 5000 units/ml inj SUBQ SCH ×2 (09:00→21:09)
--- NOTE | 2018-09-02 09:31 | Pulmonolgy Critical Care Note ---
Critical Care - Asmt/Plan Problems: (1) ATN (acute tubular necrosis) (2) Cardiac arrest (3) Hypothermia (4) Respiratory failure Respiratory: monitor respiratory rate Cardiac: continue pressors Renal: F/U I&O Infectious Disease: check cultures Gastrointestinal: continue feedings/current rate Endocrine: monitor blood sugar, check HgA1C Hematologic: monitor H/H Neurologic: PRN Morphine Prophylaxis: Heparin Disposition: keep in ICU Notes Reviewed: territory supervisor Discussed with: nurses, consultants, medical case managermultimedia services manager - Objective Last 24 Hour Vital Signs Date Time Temp Pulse Resp B/P (MAP) Pulse Ox O2 Delivery O2 Flow Rate FiO2 09/02/18 07:29 62 16 50 09/02/18 07:00 65 16 129/61 (83) 100 09/02/18 07:00 123/49 09/02/18 06:00 130/59 09/02/18 06:00 64 16 138/59 (85) 100 09/02/18 05:12 57 16 50 09/02/18 05:00 64 16 109/49 (69) 100 09/02/18 05:00 109/49 09/02/18 04:00 50 09/02/18 04:00 88/59 09/02/18 04:00 Mechanical Ventilator 09/02/18 04:00 61 09/02/18 04:00 63 16 134/58 (83) 100 09/02/18 03:19 65 16 50 09/02/18 03:00 142/57 09/02/18 03:00 64 16 138/72 (94) 100 09/02/18 02:00 124/55 09/02/18 02:00 98.4 61 16 126/52 (76) 100 09/02/18 01:04 60 16 50 09/02/18 01:00 120/51 09/02/18 01:00 64 16 97/48 (64) 100 09/02/18 00:00 60 09/02/18 00:00 64 16 113/57 (75) 100 09/02/18 00:00 112/49 09/02/18 00:00 50 09/01/18 23:01 65 16 50 09/01/18 23:00 64 16 121/49 (73) 100 09/01/18 23:00 121/49 09/01/18 22:00 60 16 104/46 (65) 100 09/01/18 22:00 104/46 09/01/18 21:41 66 16 50 09/01/18 21:00 63 16 95/46 (62) 100 09/01/18 21:00 95/46 09/01/18 20:00 Mechanical Ventilator 09/01/18 20:00 129/50 09/01/18 20:00 64 09/01/18 20:00 50 09/01/18 20:00 98.3 65 16 129/51 (77) 100 09/01/18 19:21 65 16 50 09/01/18 19:15 146/56 09/01/18 19:00 64 16 119/53 (75) 100 09/01/18 19:00 119/53 09/01/18 18:49 114/47 09/01/18 18:00 61 16 113/54 (73) 100 09/01/18 17:00 63 16 115/56 (75) 100 09/01/18 16:31 62 16 50 09/01/18 16:00 97.5 62 16 126/58 (80) 100 09/01/18 16:00 Mechanical Ventilator 09/01/18 16:00 50 09/01/18 16:00 60 09/01/18 15:00 65 16 112/48 (69) 100 09/01/18 14:40 67 16 50 09/01/18 14:00 97.6 65 16 113/48 (69) 100 09/01/18 13:00 66 16 121/52 (75) 100 09/01/18 12:53 67 16 50 09/01/18 12:00 Mechanical Ventilator 09/01/18 12:00 67 16 78/37 (51) 100 09/01/18 12:00 50 09/01/18 12:00 76/41 09/01/18 12:00 67 09/01/18 11:00 96/42 09/01/18 11:00 76 16 96/42 (60) 100 09/01/18 10:36 79 16 50 09/01/18 10:30 125/46 09/01/18 10:00 125/47 09/01/18 10:00 78 16 125/47 (73) 100 Status: awake, sedated Condition: critical HEENT: atraumatic Lungs: clear Heart: HR/BP stable Abdomen: soft, non-tender, feeding tube Micro: Microbiology Date/Time Source Procedure Growth Status 08/30/18 14:30 Blood Blood Culture - Preliminary NO GROWTH AFTER 48 HOURS Resulted 08/30/18 14:15 Blood Blood Culture - Preliminary NO GROWTH AFTER 48 HOURS Resulted 08/30/18 15:26 Nasal Nares MRSA Culture - Final NO METHICILLIN RESISTANT STAPH AUREUS... 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 Complete 08/31/18 02:40 Rectum - Final NO CARBAPENEM-RESISTANT ENTEROBACTERI... Complete Critical Care - Subjective ROS Limited/Unobtainable: Yes Interval Events: had seizures last night again, deep coma FI02: 50 Vent Support Breath Rate: 16 Vent Support Mode: AC Vent Tidal Volume: 600 Sputum Amount: Scant PEEP: 0.0 PIP: 40 I&O: Intake and Output 09/01/18 09/02/18 19:00 07:00 Intake Total 1471.321 ml 1918.356 ml Output Total 750 ml 690 ml Balance 721.321 ml 1228.356 ml IV Total 1471.321 ml 1918.356 ml Output Urine Total 750 ml 690 ml CXR: cxr reviewed, increasing edema and effusion. ET-Tube: 7.5 ET Position: 22 Labs: Laboratory Tests Test 09/01/18 10:45 09/02/18 04:25 09/02/18 08:53 Troponin I 1.552 ng/mL (0.000-0.056) 0.530 ng/mL (0.000-0.056) White Blood Count 4.5 K/UL (4.8-10.8) L Red Blood Count 2.91 M/UL (4.20-5.40) L Hemoglobin 8.6 G/DL (12.0-16.0) L Hematocrit 25.5 % (37.0-47.0) L Mean Corpuscular Volume 88 FL (80-99) Mean Corpuscular Hemoglobin 29.6 PG (27.0-31.0) Mean Corpuscular Hemoglobin Concent 33.7 G/DL (32.0-36.0) Red Cell Distribution Width 12.3 % (11.6-14.8) Platelet Count 143 K/UL (150-450) L Mean Platelet Volume 7.3 FL (6.5-10.1) Neutrophils (%) (Auto) % (45.0-75.0) Lymphocytes (%) (Auto) % (20.0-45.0) Monocytes (%) (Auto) % (1.0-10.0) Eosinophils (%) (Auto) % (0.0-3.0) Basophils (%) (Auto) % (0.0-2.0) Neutrophils % (Manual) Pending Lymphocytes % (Manual) Pending Platelet Estimate Pending Platelet Morphology Pending Sodium Level 136 MMOL/L (136-145) Potassium Level 2.4 MMOL/L (3.5-5.1) *L Chloride Level 105 MMOL/L (98-107) Carbon Dioxide Level 22 MMOL/L (21-32) Anion Gap 9 mmol/L (5-15) Blood Urea Nitrogen 22 mg/dL (7-18) H Creatinine 1.0 MG/DL (0.55-1.30) Estimat Glomerular Filtration Rate mL/min (>60) Glucose Level 131 MG/DL (74-106) H Calcium Level 7.3 MG/DL (8.5-10.1) L Phosphorus Level 2.0 MG/DL (2.5-4.9) L Magnesium Level 1.8 MG/DL (1.8-2.4) Iron Level Pending Unsaturated Iron Binding Pending Ferritin Pending Total Bilirubin 0.4 MG/DL (0.2-1.0) Aspartate Amino Transf (AST/SGOT) 47 U/L (15-37) H Alanine Aminotransferase (ALT/SGPT) 41 U/L (12-78) Alkaline Phosphatase 49 U/L (46-116) Total Protein 5.5 G/DL (6.4-8.2) L Albumin 1.6 G/DL (3.4-5.0) L Globulin 3.9 g/dL Albumin/Globulin Ratio 0.4 (1.0-2.7) L Vitamin B12 Level Pending Folate Pending Arterial Blood pH 7.440 (7.350-7.450) Arterial Blood Partial Pressure CO2 30.4 mmHg (35.0-45.0) L Arterial Blood Partial Pressure O2 209.3 mmHg (75.0-100.0) H Arterial Blood HCO3 20.2 mmol/L (22.0-26.0) L Arterial Blood Oxygen Saturation 98.8 % (95-100) Arterial Blood Base Excess -3.2 (-2-2) L Tanner Test Positive Karine Berry MD Sep 02, 2018 09:30
[2018-09-02 09:46] LABS: FERRITIN 144 NG/ML (8-388)
[2018-09-02] MEDS: Valproate Sodium INJ 1,000 MG in D5W 55 ML IV SCH ×2 (09:46→21:05)
[2018-09-02] MEDS: Pantoprazole Inj IVP SCH ×2 (09:47→21:05)
[2018-09-02 10:00] LABS: % IRON SATURATION 5 % (15-50); IRON 10 ug/dL (50-175); TOTAL IRON BINDING CAPACITY 204 ug/dL (250-450)
--- NOTE | 2018-09-02 11:12 | Nephrology Progress Note ---
Assessment/Plan Problem List: (1) ATN (acute tubular necrosis) (2) Hypotension (3) Respiratory failure (4) For cardiopulmonary resuscitation (5) Anoxic brain injury Assessment ATN, Oliguric renal failure- resolving HyperKalemia resolved Respiratory failure acute on Vent Hypotensive improved s/p Code blue- High Troponin is lowering severe anoxic ischemic brain injury Plan poor prognosis IV Iron K and Phos supplement as needed NGT for meds IV fluids Monitor renal parameters avoid nephrotoxics Gastric support Neuro eval? Depakote and Ativan discussed with RN Subjective ROS Limited/Unobtainable: No Objective Objective Last 24 Hour Vital Signs Date Time Temp Pulse Resp B/P (MAP) Pulse Ox O2 Delivery O2 Flow Rate FiO2 09/02/18 10:00 65 16 116/49 (71) 100 09/02/18 09:00 67 16 119/61 (80) 100 09/02/18 08:45 60 16 50 09/02/18 08:00 98.7 61 16 120/59 (79) 100 09/02/18 08:00 50 09/02/18 08:00 65 09/02/18 08:00 Mechanical Ventilator 09/02/18 07:29 62 16 50 09/02/18 07:00 65 16 129/61 (83) 100 09/02/18 07:00 123/49 09/02/18 06:00 130/59 09/02/18 06:00 64 16 138/59 (85) 100 09/02/18 05:12 57 16 50 09/02/18 05:00 64 16 109/49 (69) 100 09/02/18 05:00 109/49 09/02/18 04:00 50 09/02/18 04:00 88/59 09/02/18 04:00 Mechanical Ventilator 09/02/18 04:00 61 09/02/18 04:00 63 16 134/58 (83) 100 09/02/18 03:19 65 16 50 09/02/18 03:00 142/57 09/02/18 03:00 64 16 138/72 (94) 100 09/02/18 02:00 124/55 09/02/18 02:00 98.4 61 16 126/52 (76) 100 09/02/18 01:04 60 16 50 09/02/18 01:00 120/51 09/02/18 01:00 64 16 97/48 (64) 100 09/02/18 00:00 60 09/02/18 00:00 64 16 113/57 (75) 100 09/02/18 00:00 112/49 09/02/18 00:00 50 09/01/18 23:01 65 16 50 09/01/18 23:00 64 16 121/49 (73) 100 09/01/18 23:00 121/49 09/01/18 22:00 60 16 104/46 (65) 100 09/01/18 22:00 104/46 09/01/18 21:41 66 16 50 09/01/18 21:00 63 16 95/46 (62) 100 09/01/18 21:00 95/46 09/01/18 20:00 Mechanical Ventilator 09/01/18 20:00 129/50 09/01/18 20:00 64 09/01/18 20:00 50 09/01/18 20:00 98.3 65 16 129/51 (77) 100 09/01/18 19:21 65 16 50 09/01/18 19:15 146/56 09/01/18 19:00 64 16 119/53 (75) 100 09/01/18 19:00 119/53 09/01/18 18:49 114/47 09/01/18 18:00 61 16 113/54 (73) 100 09/01/18 17:00 63 16 115/56 (75) 100 09/01/18 16:31 62 16 50 09/01/18 16:00 97.5 62 16 126/58 (80) 100 09/01/18 16:00 Mechanical Ventilator 09/01/18 16:00 50 09/01/18 16:00 60 09/01/18 15:00 65 16 112/48 (69) 100 09/01/18 14:40 67 16 50 09/01/18 14:00 97.6 65 16 113/48 (69) 100 09/01/18 13:00 66 16 121/52 (75) 100 09/01/18 12:53 67 16 50 09/01/18 12:00 Mechanical Ventilator 09/01/18 12:00 67 16 78/37 (51) 100 09/01/18 12:00 50 09/01/18 12:00 76/41 09/01/18 12:00 67 Intake and Output 09/01/18 09/02/18 19:00 07:00 Intake Total 1471.321 ml 1918.356 ml Output Total 750 ml 690 ml Balance 721.321 ml 1228.356 ml IV Total 1471.321 ml 1918.356 ml Output Urine Total 750 ml 690 ml Laboratory Tests 09/02/18 04:25: White Blood Count 4.5L, Red Blood Count 2.91L, Hemoglobin 8.6L, Hematocrit 25.5L , Mean Corpuscular Volume 88, Mean Corpuscular Hemoglobin 29.6, Mean Corpuscular Hemoglobin Concent 33.7, Red Cell Distribution Width 12.3, Platelet Count 143L, Mean Platelet Volume 7.3, Neutrophils (%) (Auto) , Lymphocytes (%) ( Auto) , Monocytes (%) (Auto) , Eosinophils (%) (Auto) , Basophils (%) (Auto) , Differential Total Cells Counted 100, Neutrophils % (Manual) 81H, Lymphocytes % (Manual) 11L, Monocytes % (Manual) 7, Eosinophils % (Manual) 0, Basophils % ( Manual) 0, Band Neutrophils 1, Platelet Estimate DecreasedL, Platelet Morphology Normal, Hypochromasia 1+, Sodium Level 136, Potassium Level 2.4*L, Chloride Level 105, Carbon Dioxide Level 22, Anion Gap 9, Blood Urea Nitrogen 22H, Creatinine 1.0, Estimat Glomerular Filtration Rate , Glucose Level 131H, Calcium Level 7.3L, Phosphorus Level 2.0L, Magnesium Level 1.8, Iron Level 10L, Total Iron Binding Capacity 204L, Percent Iron Saturation 5L, Unsaturated Iron Binding 194, Ferritin 144, Total Bilirubin 0.4, Aspartate Amino Transf (AST/SGOT ) 47H, Alanine Aminotransferase (ALT/SGPT) 41, Alkaline Phosphatase 49, Troponin I 0.530H, Total Protein 5.5L, Albumin 1.6L, Globulin 3.9, Albumin/ Globulin Ratio 0.4L, Vitamin B12 Level 1089H, Folate 8.7 09/02/18 08:53: Arterial Blood pH 7.440, Arterial Blood Partial Pressure CO2 30.4L, Arterial Blood Partial Pressure O2 209.3H, Arterial Blood HCO3 20.2L, Arterial Blood Oxygen Saturation 98.8, Arterial Blood Base Excess -3.2L, Tanner Test Positive Height (Feet): 5 Height (Inches): 4.00 Weight (Pounds): 133 General Appearance: other - comatose Cardiovascular: normal rate Respiratory/Chest: decreased breath sounds Abdomen: distended Kwadwo Mcfarland MD Sep 02, 2018 11:12
[2018-09-02] MEDS ORDERED: Potassium Phosphate 30 MM in NS 275 ML IV ONE (12:00)
--- NOTE | 2018-09-02 12:01 | Diagnostic Imaging Report ---
Indication: Dyspnea Technique: One view of the chest Comparison: 09/01/2018 Findings: Large left pleural effusion persists. Stable or perhaps minimally increased right perihilar and basilar parenchymal infiltrates again demonstrated. Stable satisfactory positions of endotracheal and nasogastric tubes. Impression: Stable or perhaps slightly increased right lung infiltrates, over one day Other stable findings as described
[2018-09-02] MEDS ORDERED: Iron Sucrose 200 MG in NS 110 ML IV SCH (14:00)
--- NOTE | 2018-09-02 14:22 | Cardiac Electrophysiology PN ---
Assessment/Plan Assessment/Plan 1. Status post cardiorespiratory arrest, etiology is not clear at this time. Troponin are marginally elevated and could be due to prolonged CPR and multiple shocks. Echocardiogram Nl EF 2. Troponin elevation. Peak Troponin 6. Down to 2. No acute ST-T changes. 3. Shock. On dopamine, could have aspiration pneumonia. 4. Respiratory failure, on the ventilator as well as broad-spectrum IV antibiotics. 5. Accelerated junctional rhythm. Keep the patient on dopamine. 6. Hypokalemia. Replaced 7. Renal failure. Creatinine 1.5. 8. 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 DNR DW RN Subjective Subjective In ICU on the vent unresponsive on Dopamine 4 mcg/min. Still has twitches. Now DNR Objective Last 24 Hour Vital Signs Date Time Temp Pulse Resp B/P (MAP) Pulse Ox O2 Delivery O2 Flow Rate FiO2 09/02/18 13:20 62 16 50 09/02/18 11:15 65 16 50 09/02/18 10:00 65 16 116/49 (71) 100 09/02/18 09:00 67 16 119/61 (80) 100 09/02/18 08:45 60 16 50 09/02/18 08:00 98.7 61 16 120/59 (79) 100 09/02/18 08:00 50 09/02/18 08:00 65 09/02/18 08:00 Mechanical Ventilator 09/02/18 07:29 62 16 50 09/02/18 07:00 65 16 129/61 (83) 100 09/02/18 07:00 123/49 09/02/18 06:00 130/59 09/02/18 06:00 64 16 138/59 (85) 100 09/02/18 05:12 57 16 50 09/02/18 05:00 64 16 109/49 (69) 100 09/02/18 05:00 109/49 09/02/18 04:00 50 09/02/18 04:00 88/59 09/02/18 04:00 Mechanical Ventilator 09/02/18 04:00 61 09/02/18 04:00 63 16 134/58 (83) 100 09/02/18 03:19 65 16 50 09/02/18 03:00 142/57 09/02/18 03:00 64 16 138/72 (94) 100 09/02/18 02:00 124/55 09/02/18 02:00 98.4 61 16 126/52 (76) 100 09/02/18 01:04 60 16 50 09/02/18 01:00 120/51 09/02/18 01:00 64 16 97/48 (64) 100 09/02/18 00:00 60 09/02/18 00:00 64 16 113/57 (75) 100 09/02/18 00:00 112/49 09/02/18 00:00 50 09/01/18 23:01 65 16 50 09/01/18 23:00 64 16 121/49 (73) 100 09/01/18 23:00 121/49 09/01/18 22:00 60 16 104/46 (65) 100 09/01/18 22:00 104/46 09/01/18 21:41 66 16 50 09/01/18 21:00 63 16 95/46 (62) 100 09/01/18 21:00 95/46 09/01/18 20:00 Mechanical Ventilator 09/01/18 20:00 129/50 09/01/18 20:00 64 09/01/18 20:00 50 09/01/18 20:00 98.3 65 16 129/51 (77) 100 09/01/18 19:21 65 16 50 09/01/18 19:15 146/56 09/01/18 19:00 64 16 119/53 (75) 100 09/01/18 19:00 119/53 09/01/18 18:49 114/47 09/01/18 18:00 61 16 113/54 (73) 100 09/01/18 17:00 63 16 115/56 (75) 100 09/01/18 16:31 62 16 50 09/01/18 16:00 97.5 62 16 126/58 (80) 100 09/01/18 16:00 Mechanical Ventilator 09/01/18 16:00 50 09/01/18 16:00 60 09/01/18 15:00 65 16 112/48 (69) 100 09/01/18 14:40 67 16 50 Intake and Output 09/01/18 09/02/18 19:00 07:00 Intake Total 1471.321 ml 1918.356 ml Output Total 750 ml 690 ml Balance 721.321 ml 1228.356 ml IV Total 1471.321 ml 1918.356 ml Output Urine Total 750 ml 690 ml Laboratory Tests Test 09/02/18 04:25 09/02/18 08:53 White Blood Count 4.5 K/UL (4.8-10.8) L Red Blood Count 2.91 M/UL (4.20-5.40) L Hemoglobin 8.6 G/DL (12.0-16.0) L Hematocrit 25.5 % (37.0-47.0) L Mean Corpuscular Volume 88 FL (80-99) Mean Corpuscular Hemoglobin 29.6 PG (27.0-31.0) Mean Corpuscular Hemoglobin Concent 33.7 G/DL (32.0-36.0) Red Cell Distribution Width 12.3 % (11.6-14.8) Platelet Count 143 K/UL (150-450) L Mean Platelet Volume 7.3 FL (6.5-10.1) Neutrophils (%) (Auto) % (45.0-75.0) Lymphocytes (%) (Auto) % (20.0-45.0) Monocytes (%) (Auto) % (1.0-10.0) Eosinophils (%) (Auto) % (0.0-3.0) Basophils (%) (Auto) % (0.0-2.0) Differential Total Cells Counted 100 Neutrophils % (Manual) 81 % (45-75) H Lymphocytes % (Manual) 11 % (20-45) L Monocytes % (Manual) 7 % (1-10) Eosinophils % (Manual) 0 % (0-3) Basophils % (Manual) 0 % (0-2) Band Neutrophils 1 % (0-8) Platelet Estimate Decreased L Platelet Morphology Normal Hypochromasia 1+ Sodium Level 136 MMOL/L (136-145) Potassium Level 2.4 MMOL/L (3.5-5.1) *L Chloride Level 105 MMOL/L (98-107) Carbon Dioxide Level 22 MMOL/L (21-32) Anion Gap 9 mmol/L (5-15) Blood Urea Nitrogen 22 mg/dL (7-18) H Creatinine 1.0 MG/DL (0.55-1.30) Estimat Glomerular Filtration Rate mL/min (>60) Glucose Level 131 MG/DL (74-106) H Calcium Level 7.3 MG/DL (8.5-10.1) L Phosphorus Level 2.0 MG/DL (2.5-4.9) L Magnesium Level 1.8 MG/DL (1.8-2.4) Iron Level 10 ug/dL (50-175) L Total Iron Binding Capacity 204 ug/dL (250-450) L Percent Iron Saturation 5 % (15-50) L Unsaturated Iron Binding 194 ug/dL (112-346) Ferritin 144 NG/ML (8-388) Total Bilirubin 0.4 MG/DL (0.2-1.0) Aspartate Amino Transf (AST/SGOT) 47 U/L (15-37) H Alanine Aminotransferase (ALT/SGPT) 41 U/L (12-78) Alkaline Phosphatase 49 U/L (46-116) Troponin I 0.530 ng/mL (0.000-0.056) Total Protein 5.5 G/DL (6.4-8.2) L Albumin 1.6 G/DL (3.4-5.0) L Globulin 3.9 g/dL Albumin/Globulin Ratio 0.4 (1.0-2.7) L Vitamin B12 Level 1089 PG/ML (193-986) H Folate 8.7 NG/ML (8.6-58.9) Arterial Blood pH 7.440 (7.350-7.450) Arterial Blood Partial Pressure CO2 30.4 mmHg (35.0-45.0) L Arterial Blood Partial Pressure O2 209.3 mmHg (75.0-100.0) H Arterial Blood HCO3 20.2 mmol/L (22.0-26.0) L Arterial Blood Oxygen Saturation 98.8 % (95-100) Arterial Blood Base Excess -3.2 (-2-2) L Tanner Test Positive Microbiology Date/Time Source Procedure Growth Status 08/30/18 14:30 Blood Blood Culture - Preliminary NO GROWTH AFTER 48 HOURS Resulted 08/30/18 15:26 Nasal Nares MRSA Culture - Final NO METHICILLIN RESISTANT STAPH AUREUS... 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 Complete 08/31/18 02:40 Rectum - Final NO CARBAPENEM-RESISTANT ENTEROBACTERI... Complete Objective HEAD AND NECK: Orally intubated.NG tube is in. LUNGS: Have coarse rhonchi. CARDIOVASCULAR: Regular, S1, S2 with no gallop. ABDOMEN: Soft. EXTREMITIES: No pitting edema. Imtiaz Moreno MD Sep 02, 2018 14:22
--- NOTE | 2018-09-02 15:43 | Infectious Diseases Prog Note ---
Assessment/Plan Assessment/Plan ASSESSMENT: The patient is an 88-year-old female with: Aspiration pneumonia Sepsis / on pressors Nl WBC Afebrile Transaminitis (mostly due to shock) Ventilator-dependent respiratory failure HTN History of dysphagia. DM2 PLAN: continue the patient on intravenous vancomycin, aztreonam and Flagyl d# 2 ( for coverage of Asp) Monitor CBC Monitor BMP. Monitor cultures( blood, sputum, and urine) Monitor chest x-ray in AM Respiratory support Continue pressors PRN Subjective Allergies: Coded Allergies: PENICILLINS (Verified Allergy, Unknown, 08/30/18) Subjective late Entry ( pt was seen and care was DW family at he bedside, note missing on the 09/01 visit) Objective Vital Signs Last 24 Hour Vital Signs Date Time Temp Pulse Resp B/P (MAP) Pulse Ox O2 Delivery O2 Flow Rate FiO2 09/02/18 14:46 64 16 50 09/02/18 13:20 62 16 50 09/02/18 11:15 65 16 50 09/02/18 10:00 65 16 116/49 (71) 100 09/02/18 09:00 67 16 119/61 (80) 100 09/02/18 08:45 60 16 50 09/02/18 08:00 98.7 61 16 120/59 (79) 100 09/02/18 08:00 50 09/02/18 08:00 65 09/02/18 08:00 Mechanical Ventilator 09/02/18 07:29 62 16 50 09/02/18 07:00 65 16 129/61 (83) 100 09/02/18 07:00 123/49 09/02/18 06:00 130/59 09/02/18 06:00 64 16 138/59 (85) 100 09/02/18 05:12 57 16 50 09/02/18 05:00 64 16 109/49 (69) 100 09/02/18 05:00 109/49 09/02/18 04:00 50 09/02/18 04:00 88/59 09/02/18 04:00 Mechanical Ventilator 09/02/18 04:00 61 09/02/18 04:00 63 16 134/58 (83) 100 09/02/18 03:19 65 16 50 09/02/18 03:00 142/57 09/02/18 03:00 64 16 138/72 (94) 100 09/02/18 02:00 124/55 09/02/18 02:00 98.4 61 16 126/52 (76) 100 09/02/18 01:04 60 16 50 09/02/18 01:00 120/51 09/02/18 01:00 64 16 97/48 (64) 100 09/02/18 00:00 60 09/02/18 00:00 64 16 113/57 (75) 100 09/02/18 00:00 112/49 09/02/18 00:00 50 09/01/18 23:01 65 16 50 09/01/18 23:00 64 16 121/49 (73) 100 09/01/18 23:00 121/49 09/01/18 22:00 60 16 104/46 (65) 100 09/01/18 22:00 104/46 09/01/18 21:41 66 16 50 09/01/18 21:00 63 16 95/46 (62) 100 09/01/18 21:00 95/46 09/01/18 20:00 Mechanical Ventilator 09/01/18 20:00 129/50 09/01/18 20:00 64 09/01/18 20:00 50 09/01/18 20:00 98.3 65 16 129/51 (77) 100 09/01/18 19:21 65 16 50 09/01/18 19:15 146/56 09/01/18 19:00 64 16 119/53 (75) 100 09/01/18 19:00 119/53 09/01/18 18:49 114/47 09/01/18 18:00 61 16 113/54 (73) 100 09/01/18 17:00 63 16 115/56 (75) 100 09/01/18 16:31 62 16 50 09/01/18 16:00 97.5 62 16 126/58 (80) 100 09/01/18 16:00 Mechanical Ventilator 09/01/18 16:00 50 09/01/18 16:00 60 Height (Feet): 5 Height (Inches): 4.00 Weight (Pounds): 133 HEENT: anicteric Respiratory/Chest: normal breath sounds Cardiovascular: regular rhythm Microbiology Date/Time Source Procedure Growth Status 08/30/18 17:17 Urine,Clean Catch Urine Culture - Final Complete 08/31/18 02:40 Rectum VRE Culture - Final NO VANCOMYCIN RESISTANT ENTEROCOCCUS ... Complete 08/31/18 02:40 Rectum - Final NO CARBAPENEM-RESISTANT ENTEROBACTERI... Complete Laboratory Tests Test 09/02/18 04:25 09/02/18 08:53 White Blood Count 4.5 K/UL (4.8-10.8) L Red Blood Count 2.91 M/UL (4.20-5.40) L Hemoglobin 8.6 G/DL (12.0-16.0) L Hematocrit 25.5 % (37.0-47.0) L Mean Corpuscular Volume 88 FL (80-99) Mean Corpuscular Hemoglobin 29.6 PG (27.0-31.0) Mean Corpuscular Hemoglobin Concent 33.7 G/DL (32.0-36.0) Red Cell Distribution Width 12.3 % (11.6-14.8) Platelet Count 143 K/UL (150-450) L Mean Platelet Volume 7.3 FL (6.5-10.1) Neutrophils (%) (Auto) % (45.0-75.0) Lymphocytes (%) (Auto) % (20.0-45.0) Monocytes (%) (Auto) % (1.0-10.0) Eosinophils (%) (Auto) % (0.0-3.0) Basophils (%) (Auto) % (0.0-2.0) Differential Total Cells Counted 100 Neutrophils % (Manual) 81 % (45-75) H Lymphocytes % (Manual) 11 % (20-45) L Monocytes % (Manual) 7 % (1-10) Eosinophils % (Manual) 0 % (0-3) Basophils % (Manual) 0 % (0-2) Band Neutrophils 1 % (0-8) Platelet Estimate Decreased L Platelet Morphology Normal Hypochromasia 1+ Sodium Level 136 MMOL/L (136-145) Potassium Level 2.4 MMOL/L (3.5-5.1) *L Chloride Level 105 MMOL/L (98-107) Carbon Dioxide Level 22 MMOL/L (21-32) Anion Gap 9 mmol/L (5-15) Blood Urea Nitrogen 22 mg/dL (7-18) H Creatinine 1.0 MG/DL (0.55-1.30) Estimat Glomerular Filtration Rate mL/min (>60) Glucose Level 131 MG/DL (74-106) H Calcium Level 7.3 MG/DL (8.5-10.1) L Phosphorus Level 2.0 MG/DL (2.5-4.9) L Magnesium Level 1.8 MG/DL (1.8-2.4) Iron Level 10 ug/dL (50-175) L Total Iron Binding Capacity 204 ug/dL (250-450) L Percent Iron Saturation 5 % (15-50) L Unsaturated Iron Binding 194 ug/dL (112-346) Ferritin 144 NG/ML (8-388) Total Bilirubin 0.4 MG/DL (0.2-1.0) Aspartate Amino Transf (AST/SGOT) 47 U/L (15-37) H Alanine Aminotransferase (ALT/SGPT) 41 U/L (12-78) Alkaline Phosphatase 49 U/L (46-116) Troponin I 0.530 ng/mL (0.000-0.056) Total Protein 5.5 G/DL (6.4-8.2) L Albumin 1.6 G/DL (3.4-5.0) L Globulin 3.9 g/dL Albumin/Globulin Ratio 0.4 (1.0-2.7) L Vitamin B12 Level 1089 PG/ML (193-986) H Folate 8.7 NG/ML (8.6-58.9) Arterial Blood pH 7.440 (7.350-7.450) Arterial Blood Partial Pressure CO2 30.4 mmHg (35.0-45.0) L Arterial Blood Partial Pressure O2 209.3 mmHg (75.0-100.0) H Arterial Blood HCO3 20.2 mmol/L (22.0-26.0) L Arterial Blood Oxygen Saturation 98.8 % (95-100) Arterial Blood Base Excess -3.2 (-2-2) L Tanner Test Positive Current Medications Medications (Trade) Dose Ordered Sig/Regina Route PRN Reason Start Time Stop Time Status Last Admin Dose Admin Acetaminophen (Tylenol) 650 mg Q4H PRN ORAL fever 08/30/18 19:15 09/29/18 19:14 Albuterol/ Ipratropium (Albuterol/ Ipratropium) 3 ml Q4H PRN HHN Shortness of Breath 08/30/18 19:15 09/04/18 19:14 Aztreonam 1 gm/ Dextrose 55 ml @ 110 mls/hr Q8HR IVPB 08/31/18 14:00 09/07/18 13:59 09/02/18 06:14 Chlorhexidine Gluconate (Blanca-Hex 2%) 1 applic DAILY@2000 TOPIC 08/31/18 20:00 09/30/18 19:59 09/01/18 20:51 Dextrose/Sodium Chloride 1,000 ml @ 50 mls/hr Q20H IV 09/02/18 09:45 09/30/18 09:44 09/02/18 09:47 Dopamine HCl/ Dextrose 250 ml @ 0 mls/hr Q24H IV 08/30/18 20:00 09/29/18 19:59 09/01/18 18:49 Heparin Sodium (Porcine) (Heparin 5000 units/ml) 5,000 units EVERY 12 HOURS SUBQ 08/30/18 21:00 09/29/18 20:59 09/01/18 21:00 Iron Sucrose 200 mg/Sodium Chloride 120 ml @ 240 mls/hr ONCE IV 09/02/18 14:00 09/02/18 18:00 09/02/18 13:56 Lorazepam (Ativan 2mg/ml 1ml) 2 mg Q2H PRN IV For Seizures 08/31/18 14:40 09/06/18 14:39 09/01/18 23:45 Metronidazole (Flagyl) 500 mg Q8HR ORAL 08/31/18 14:00 09/07/18 13:59 09/02/18 06:15 Norepinephrine Bitartrate 4 mg/ Dextrose 254 ml @ 0 mls/hr Q24H IV 08/30/18 19:15 09/29/18 19:14 08/31/18 06:05 Ondansetron HCl (Zofran) 4 mg Q6H PRN IVP Nausea & Vomiting 08/30/18 19:15 09/29/18 19:14 Pantoprazole (Protonix) 40 mg EVERY 12 HOURS IVP 08/31/18 21:00 09/30/18 20:59 09/02/18 09:47 Polyethylene Glycol (Miralax) 17 gm DAILYPRN PRN NG Constipation 08/31/18 12:00 09/29/18 19:14 Potassium Phosphate 30 mm/ Sodium Chloride 285 ml @ 47.5 mls/hr ONCE ONCE IV 09/02/18 12:00 09/02/18 17:59 09/02/18 12:22 Silver Sulfadiazine (Silvadene Cream 25gm) 1 applic TWICE A DAY TOPIC 08/31/18 18:00 09/30/18 08:59 09/02/18 09:00 Valproate Sodium 1000 mg/Dextrose 65 ml @ 32.5 mls/hr EVERY 12 HOURS IV 09/01/18 09:00 10/01/18 08:59 09/02/18 09:46 Vancomycin HCl (Vanco rx to dose) 1 ea DAILY PRN MISC per rx protocol 08/30/18 19:45 09/29/18 19:44 Vancomycin HCl 500 mg/Dextrose 110 ml @ 110 mls/hr Q24H IVPB 08/31/18 20:00 09/05/18 19:59 09/01/18 20:51 Adrian Ames MD Sep 02, 2018 15:43
--- NOTE | 2018-09-02 15:49 | Infectious Diseases Prog Note ---
Assessment/Plan Assessment/Plan ASSESSMENT: The patient is an 88-year-old female with: Aspiration pneumonia CXr : Chest x-ray(admission ) large left pleural effusion. Sepsis / on pressors Nl WBC Afebrile Transaminitis (mostly due to shock) Ventilator-dependent respiratory failure HTN History of dysphagia. DM2 PLAN: continue the patient on intravenous vancomycin, aztreonam and Flagyl d# 3/ 7 ( for coverage of Asp) Monitor CBC Monitor BMP. Monitor cultures( blood, sputum, and urine) Monitor chest x-ray Respiratory support Continue pressors PRN DNR Subjective Allergies: Coded Allergies: PENICILLINS (Verified Allergy, Unknown, 08/30/18) Subjective on vent on prssors Objective Vital Signs Last 24 Hour Vital Signs Date Time Temp Pulse Resp B/P (MAP) Pulse Ox O2 Delivery O2 Flow Rate FiO2 09/02/18 14:46 64 16 50 09/02/18 13:20 62 16 50 09/02/18 11:15 65 16 50 09/02/18 10:00 65 16 116/49 (71) 100 09/02/18 09:00 67 16 119/61 (80) 100 09/02/18 08:45 60 16 50 09/02/18 08:00 98.7 61 16 120/59 (79) 100 09/02/18 08:00 50 09/02/18 08:00 65 09/02/18 08:00 Mechanical Ventilator 09/02/18 07:29 62 16 50 09/02/18 07:00 65 16 129/61 (83) 100 09/02/18 07:00 123/49 09/02/18 06:00 130/59 09/02/18 06:00 64 16 138/59 (85) 100 09/02/18 05:12 57 16 50 09/02/18 05:00 64 16 109/49 (69) 100 09/02/18 05:00 109/49 09/02/18 04:00 50 09/02/18 04:00 88/59 09/02/18 04:00 Mechanical Ventilator 09/02/18 04:00 61 09/02/18 04:00 63 16 134/58 (83) 100 09/02/18 03:19 65 16 50 09/02/18 03:00 142/57 09/02/18 03:00 64 16 138/72 (94) 100 09/02/18 02:00 124/55 09/02/18 02:00 98.4 61 16 126/52 (76) 100 09/02/18 01:04 60 16 50 09/02/18 01:00 120/51 09/02/18 01:00 64 16 97/48 (64) 100 09/02/18 00:00 60 09/02/18 00:00 64 16 113/57 (75) 100 09/02/18 00:00 112/49 09/02/18 00:00 50 09/01/18 23:01 65 16 50 09/01/18 23:00 64 16 121/49 (73) 100 09/01/18 23:00 121/49 09/01/18 22:00 60 16 104/46 (65) 100 09/01/18 22:00 104/46 09/01/18 21:41 66 16 50 09/01/18 21:00 63 16 95/46 (62) 100 09/01/18 21:00 95/46 09/01/18 20:00 Mechanical Ventilator 09/01/18 20:00 129/50 09/01/18 20:00 64 09/01/18 20:00 50 09/01/18 20:00 98.3 65 16 129/51 (77) 100 09/01/18 19:21 65 16 50 09/01/18 19:15 146/56 09/01/18 19:00 64 16 119/53 (75) 100 09/01/18 19:00 119/53 09/01/18 18:49 114/47 09/01/18 18:00 61 16 113/54 (73) 100 09/01/18 17:00 63 16 115/56 (75) 100 09/01/18 16:31 62 16 50 09/01/18 16:00 97.5 62 16 126/58 (80) 100 09/01/18 16:00 Mechanical Ventilator 09/01/18 16:00 50 09/01/18 16:00 60 Height (Feet): 5 Height (Inches): 4.00 Weight (Pounds): 133 HEENT: anicteric Respiratory/Chest: normal breath sounds Cardiovascular: regular rhythm Abdomen: non distended Microbiology Date/Time Source Procedure Growth Status 08/30/18 17:17 Urine,Clean Catch Urine Culture - Final Complete 08/31/18 02:40 Rectum VRE Culture - Final NO VANCOMYCIN RESISTANT ENTEROCOCCUS ... Complete 08/31/18 02:40 Rectum - Final NO CARBAPENEM-RESISTANT ENTEROBACTERI... Complete Laboratory Tests Test 09/02/18 04:25 09/02/18 08:53 White Blood Count 4.5 K/UL (4.8-10.8) L Red Blood Count 2.91 M/UL (4.20-5.40) L Hemoglobin 8.6 G/DL (12.0-16.0) L Hematocrit 25.5 % (37.0-47.0) L Mean Corpuscular Volume 88 FL (80-99) Mean Corpuscular Hemoglobin 29.6 PG (27.0-31.0) Mean Corpuscular Hemoglobin Concent 33.7 G/DL (32.0-36.0) Red Cell Distribution Width 12.3 % (11.6-14.8) Platelet Count 143 K/UL (150-450) L Mean Platelet Volume 7.3 FL (6.5-10.1) Neutrophils (%) (Auto) % (45.0-75.0) Lymphocytes (%) (Auto) % (20.0-45.0) Monocytes (%) (Auto) % (1.0-10.0) Eosinophils (%) (Auto) % (0.0-3.0) Basophils (%) (Auto) % (0.0-2.0) Differential Total Cells Counted 100 Neutrophils % (Manual) 81 % (45-75) H Lymphocytes % (Manual) 11 % (20-45) L Monocytes % (Manual) 7 % (1-10) Eosinophils % (Manual) 0 % (0-3) Basophils % (Manual) 0 % (0-2) Band Neutrophils 1 % (0-8) Platelet Estimate Decreased L Platelet Morphology Normal Hypochromasia 1+ Sodium Level 136 MMOL/L (136-145) Potassium Level 2.4 MMOL/L (3.5-5.1) *L Chloride Level 105 MMOL/L (98-107) Carbon Dioxide Level 22 MMOL/L (21-32) Anion Gap 9 mmol/L (5-15) Blood Urea Nitrogen 22 mg/dL (7-18) H Creatinine 1.0 MG/DL (0.55-1.30) Estimat Glomerular Filtration Rate mL/min (>60) Glucose Level 131 MG/DL (74-106) H Calcium Level 7.3 MG/DL (8.5-10.1) L Phosphorus Level 2.0 MG/DL (2.5-4.9) L Magnesium Level 1.8 MG/DL (1.8-2.4) Iron Level 10 ug/dL (50-175) L Total Iron Binding Capacity 204 ug/dL (250-450) L Percent Iron Saturation 5 % (15-50) L Unsaturated Iron Binding 194 ug/dL (112-346) Ferritin 144 NG/ML (8-388) Total Bilirubin 0.4 MG/DL (0.2-1.0) Aspartate Amino Transf (AST/SGOT) 47 U/L (15-37) H Alanine Aminotransferase (ALT/SGPT) 41 U/L (12-78) Alkaline Phosphatase 49 U/L (46-116) Troponin I 0.530 ng/mL (0.000-0.056) Total Protein 5.5 G/DL (6.4-8.2) L Albumin 1.6 G/DL (3.4-5.0) L Globulin 3.9 g/dL Albumin/Globulin Ratio 0.4 (1.0-2.7) L Vitamin B12 Level 1089 PG/ML (193-986) H Folate 8.7 NG/ML (8.6-58.9) Arterial Blood pH 7.440 (7.350-7.450) Arterial Blood Partial Pressure CO2 30.4 mmHg (35.0-45.0) L Arterial Blood Partial Pressure O2 209.3 mmHg (75.0-100.0) H Arterial Blood HCO3 20.2 mmol/L (22.0-26.0) L Arterial Blood Oxygen Saturation 98.8 % (95-100) Arterial Blood Base Excess -3.2 (-2-2) L Tanner Test Positive Current Medications Medications (Trade) Dose Ordered Sig/Regina Route PRN Reason Start Time Stop Time Status Last Admin Dose Admin Acetaminophen (Tylenol) 650 mg Q4H PRN ORAL fever 08/30/18 19:15 09/29/18 19:14 Albuterol/ Ipratropium (Albuterol/ Ipratropium) 3 ml Q4H PRN HHN Shortness of Breath 08/30/18 19:15 09/04/18 19:14 Aztreonam 1 gm/ Dextrose 55 ml @ 110 mls/hr Q8HR IVPB 08/31/18 14:00 09/07/18 13:59 09/02/18 06:14 Chlorhexidine Gluconate (Blanca-Hex 2%) 1 applic DAILY@2000 TOPIC 08/31/18 20:00 09/30/18 19:59 09/01/18 20:51 Dextrose/Sodium Chloride 1,000 ml @ 50 mls/hr Q20H IV 09/02/18 09:45 09/30/18 09:44 09/02/18 09:47 Dopamine HCl/ Dextrose 250 ml @ 0 mls/hr Q24H IV 08/30/18 20:00 09/29/18 19:59 09/01/18 18:49 Heparin Sodium (Porcine) (Heparin 5000 units/ml) 5,000 units EVERY 12 HOURS SUBQ 08/30/18 21:00 09/29/18 20:59 09/01/18 21:00 Iron Sucrose 200 mg/Sodium Chloride 120 ml @ 240 mls/hr ONCE IV 09/02/18 14:00 09/02/18 18:00 09/02/18 13:56 Lorazepam (Ativan 2mg/ml 1ml) 2 mg Q2H PRN IV For Seizures 08/31/18 14:40 09/06/18 14:39 09/01/18 23:45 Metronidazole (Flagyl) 500 mg Q8HR ORAL 08/31/18 14:00 09/07/18 13:59 09/02/18 06:15 Norepinephrine Bitartrate 4 mg/ Dextrose 254 ml @ 0 mls/hr Q24H IV 08/30/18 19:15 09/29/18 19:14 08/31/18 06:05 Ondansetron HCl (Zofran) 4 mg Q6H PRN IVP Nausea & Vomiting 08/30/18 19:15 09/29/18 19:14 Pantoprazole (Protonix) 40 mg EVERY 12 HOURS IVP 08/31/18 21:00 09/30/18 20:59 09/02/18 09:47 Polyethylene Glycol (Miralax) 17 gm DAILYPRN PRN NG Constipation 08/31/18 12:00 09/29/18 19:14 Potassium Phosphate 30 mm/ Sodium Chloride 285 ml @ 47.5 mls/hr ONCE ONCE IV 09/02/18 12:00 09/02/18 17:59 09/02/18 12:22 Silver Sulfadiazine (Silvadene Cream 25gm) 1 applic TWICE A DAY TOPIC 08/31/18 18:00 09/30/18 08:59 09/02/18 09:00 Valproate Sodium 1000 mg/Dextrose 65 ml @ 32.5 mls/hr EVERY 12 HOURS IV 09/01/18 09:00 10/01/18 08:59 09/02/18 09:46 Vancomycin HCl (Vanco rx to dose) 1 ea DAILY PRN MISC per rx protocol 08/30/18 19:45 09/29/18 19:44 Vancomycin HCl 500 mg/Dextrose 110 ml @ 110 mls/hr Q24H IVPB 08/31/18 20:00 09/05/18 19:59 09/01/18 20:51 Adrian Ames MD Sep 02, 2018 15:49
--- NOTE | 2018-09-02 18:58 | Internal Med Progress Note ---
Subjective Date of Service: Sep 02, 2018 Physician Name NairSantiago hernandez Attending Physician Ron Cantu MD Current Medications Medications (Trade) Dose Ordered Sig/Regina Route PRN Reason Start Time Stop Time Status Last Admin Dose Admin Acetaminophen (Tylenol) 650 mg Q4H PRN ORAL fever 08/30/18 19:15 09/29/18 19:14 Albuterol/ Ipratropium (Albuterol/ Ipratropium) 3 ml Q4H PRN HHN Shortness of Breath 08/30/18 19:15 09/04/18 19:14 Aztreonam 1 gm/ Dextrose 55 ml @ 110 mls/hr Q8HR IVPB 08/31/18 14:00 09/07/18 13:59 09/02/18 14:00 Chlorhexidine Gluconate (Blanca-Hex 2%) 1 applic DAILY@2000 TOPIC 08/31/18 20:00 09/30/18 19:59 09/01/18 20:51 Dextrose/Sodium Chloride 1,000 ml @ 50 mls/hr Q20H IV 09/02/18 09:45 09/30/18 09:44 09/02/18 09:47 Dopamine HCl/ Dextrose 250 ml @ 0 mls/hr Q24H IV 08/30/18 20:00 09/29/18 19:59 09/01/18 18:49 Heparin Sodium (Porcine) (Heparin 5000 units/ml) 5,000 units EVERY 12 HOURS SUBQ 08/30/18 21:00 09/29/18 20:59 09/01/18 21:00 Lorazepam (Ativan 2mg/ml 1ml) 2 mg Q2H PRN IV For Seizures 08/31/18 14:40 09/06/18 14:39 09/01/18 23:45 Metronidazole (Flagyl) 500 mg Q8HR ORAL 08/31/18 14:00 09/07/18 13:59 09/02/18 14:00 Norepinephrine Bitartrate 4 mg/ Dextrose 254 ml @ 0 mls/hr Q24H IV 08/30/18 19:15 09/29/18 19:14 08/31/18 06:05 Ondansetron HCl (Zofran) 4 mg Q6H PRN IVP Nausea & Vomiting 08/30/18 19:15 09/29/18 19:14 Pantoprazole (Protonix) 40 mg EVERY 12 HOURS IVP 08/31/18 21:00 09/30/18 20:59 09/02/18 09:47 Polyethylene Glycol (Miralax) 17 gm DAILYPRN PRN NG Constipation 08/31/18 12:00 09/29/18 19:14 Silver Sulfadiazine (Silvadene Cream 25gm) 1 applic TWICE A DAY TOPIC 08/31/18 18:00 09/30/18 08:59 09/02/18 17:44 Valproate Sodium 1000 mg/Dextrose 65 ml @ 32.5 mls/hr EVERY 12 HOURS IV 09/01/18 09:00 10/01/18 08:59 09/02/18 09:46 Vancomycin HCl (Vanco rx to dose) 1 ea DAILY PRN MISC per rx protocol 08/30/18 19:45 09/29/18 19:44 Vancomycin HCl 500 mg/Dextrose 110 ml @ 110 mls/hr Q24H IVPB 08/31/18 20:00 09/05/18 19:59 09/01/18 20:51 Allergies: Coded Allergies: PENICILLINS (Verified Allergy, Unknown, 08/30/18) ROS Limited/Unobtainable: Yes Subjective 88 YO F admitted in respiratory failure; S/P cardiac arrest. Intubated and sedated. Continues on dopamine drip. Cover for Int Ferny-Dr Cantu. ICU Objective Last Vital Signs Date Time Temp Pulse Resp B/P (MAP) Pulse Ox O2 Delivery O2 Flow Rate FiO2 09/02/18 18:00 66 16 126/59 (81) 100 09/02/18 17:05 50 09/02/18 16:00 Mechanical Ventilator 09/02/18 16:00 98.7 08/30/18 17:03 60.0 Laboratory Tests Test 09/02/18 04:25 09/02/18 08:53 09/02/18 18:45 White Blood Count 4.5 K/UL (4.8-10.8) L Red Blood Count 2.91 M/UL (4.20-5.40) L Hemoglobin 8.6 G/DL (12.0-16.0) L Hematocrit 25.5 % (37.0-47.0) L Mean Corpuscular Volume 88 FL (80-99) Mean Corpuscular Hemoglobin 29.6 PG (27.0-31.0) Mean Corpuscular Hemoglobin Concent 33.7 G/DL (32.0-36.0) Red Cell Distribution Width 12.3 % (11.6-14.8) Platelet Count 143 K/UL (150-450) L Mean Platelet Volume 7.3 FL (6.5-10.1) Neutrophils (%) (Auto) % (45.0-75.0) Lymphocytes (%) (Auto) % (20.0-45.0) Monocytes (%) (Auto) % (1.0-10.0) Eosinophils (%) (Auto) % (0.0-3.0) Basophils (%) (Auto) % (0.0-2.0) Differential Total Cells Counted 100 Neutrophils % (Manual) 81 % (45-75) H Lymphocytes % (Manual) 11 % (20-45) L Monocytes % (Manual) 7 % (1-10) Eosinophils % (Manual) 0 % (0-3) Basophils % (Manual) 0 % (0-2) Band Neutrophils 1 % (0-8) Platelet Estimate Decreased L Platelet Morphology Normal Hypochromasia 1+ Sodium Level 136 MMOL/L (136-145) Potassium Level 2.4 MMOL/L (3.5-5.1) *L Chloride Level 105 MMOL/L (98-107) Carbon Dioxide Level 22 MMOL/L (21-32) Anion Gap 9 mmol/L (5-15) Blood Urea Nitrogen 22 mg/dL (7-18) H Creatinine 1.0 MG/DL (0.55-1.30) Estimat Glomerular Filtration Rate mL/min (>60) Glucose Level 131 MG/DL (74-106) H Calcium Level 7.3 MG/DL (8.5-10.1) L Phosphorus Level 2.0 MG/DL (2.5-4.9) L Magnesium Level 1.8 MG/DL (1.8-2.4) Iron Level 10 ug/dL (50-175) L Total Iron Binding Capacity 204 ug/dL (250-450) L Percent Iron Saturation 5 % (15-50) L Unsaturated Iron Binding 194 ug/dL (112-346) Ferritin 144 NG/ML (8-388) Total Bilirubin 0.4 MG/DL (0.2-1.0) Aspartate Amino Transf (AST/SGOT) 47 U/L (15-37) H Alanine Aminotransferase (ALT/SGPT) 41 U/L (12-78) Alkaline Phosphatase 49 U/L (46-116) Troponin I 0.530 ng/mL (0.000-0.056) Total Protein 5.5 G/DL (6.4-8.2) L Albumin 1.6 G/DL (3.4-5.0) L Globulin 3.9 g/dL Albumin/Globulin Ratio 0.4 (1.0-2.7) L Vitamin B12 Level 1089 PG/ML (193-986) H Folate 8.7 NG/ML (8.6-58.9) Arterial Blood pH 7.440 (7.350-7.450) Arterial Blood Partial Pressure CO2 30.4 mmHg (35.0-45.0) L Arterial Blood Partial Pressure O2 209.3 mmHg (75.0-100.0) H Arterial Blood HCO3 20.2 mmol/L (22.0-26.0) L Arterial Blood Oxygen Saturation 98.8 % (95-100) Arterial Blood Base Excess -3.2 (-2-2) L Tanner Test Positive Vancomycin Level Trough Pending Microbiology Date/Time Source Procedure Growth Status 08/31/18 02:40 Rectum VRE Culture - Final NO VANCOMYCIN RESISTANT ENTEROCOCCUS ... Complete 08/31/18 02:40 Rectum - Final NO CARBAPENEM-RESISTANT ENTEROBACTERI... Complete Intake and Output 09/01/18 09/02/18 18:59 06:59 Intake Total 1547.754 ml 1856.212 ml Output Total 750 ml 720 ml Balance 797.754 ml 1136.212 ml IV Total 1547.754 ml 1856.212 ml Output Urine Total 750 ml 720 ml Objective General Appearance: WD/WN, moderate distress EENT: PERRL/EOMI, normal ENT inspection Neck: non-tender, normal alignment, supple Cardiovascular: normal peripheral pulses, normal rate, regular rhythm, no gallop/murmur, no JVD Respiratory/Chest: Mech vent; crackles/rales, rhonchi - bilaterally, expiratory wheezing Abdomen: normal bowel sounds, non tender, soft, no organomegaly, no mass Extremities: normal inspection 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 (2) Respiratory failure Assessment & Plan: Continue vent per pulmonary (3) Hypotension Assessment & Plan: Continue dopamine (4) Aspiration into airway Assessment & Plan: Continue vanco, flagyl and aztreonam per ID (5) ATN (acute tubular necrosis) Assessment & Plan: see nephrology note. (6) Elevated troponin Assessment & Plan: See cardiology note. (7) Anoxic brain injury Assessment & Plan: See neurology note. (8) Seizure disorder Assessment & Plan: Continue depakote per neurology Assessment/Plan Prognosis is guarded Santiago Nair MD Sep 02, 2018 18:58
[2018-09-02] MEDS: DOPamine 400mg/250ml 250 ML IV SCH (19:39)
[2018-09-02] MEDS: Dyna-Hex 2% Top Sol 2oz TOPIC SCH (19:40)
[2018-09-02] MEDS: Vancomycin 500mg/D5W 110ml IVPB SCH ×2 (22:00)
--- NOTE | 2018-09-02 22:44 | Neurology Progress Note ---
Interim History Interim History Interim History Ms. Mueller continues to be comatose. There has been no improvement in her level of arousal. The myoclonic jerks have resolved. She continues to be intubated and artificially ventilated. She is on dopamine for pressure support. There has been no improvement in her neurologic state. Review of Systems Neuro Review of Systems Unable to obtain. Objective Physical Exam Last Vital Signs Date Time Temp Pulse Resp B/P (MAP) Pulse Ox O2 Delivery O2 Flow Rate FiO2 09/02/18 22:00 75 15 117/52 (73) 100 09/02/18 20:53 50 09/02/18 20:00 Mechanical Ventilator 09/02/18 20:00 98.1 08/30/18 17:03 60.0 Laboratory Tests Test 09/02/18 04:25 09/02/18 08:53 09/02/18 18:45 White Blood Count 4.5 K/UL (4.8-10.8) L Red Blood Count 2.91 M/UL (4.20-5.40) L Hemoglobin 8.6 G/DL (12.0-16.0) L Hematocrit 25.5 % (37.0-47.0) L Mean Corpuscular Volume 88 FL (80-99) Mean Corpuscular Hemoglobin 29.6 PG (27.0-31.0) Mean Corpuscular Hemoglobin Concent 33.7 G/DL (32.0-36.0) Red Cell Distribution Width 12.3 % (11.6-14.8) Platelet Count 143 K/UL (150-450) L Mean Platelet Volume 7.3 FL (6.5-10.1) Neutrophils (%) (Auto) % (45.0-75.0) Lymphocytes (%) (Auto) % (20.0-45.0) Monocytes (%) (Auto) % (1.0-10.0) Eosinophils (%) (Auto) % (0.0-3.0) Basophils (%) (Auto) % (0.0-2.0) Differential Total Cells Counted 100 Neutrophils % (Manual) 81 % (45-75) H Lymphocytes % (Manual) 11 % (20-45) L Monocytes % (Manual) 7 % (1-10) Eosinophils % (Manual) 0 % (0-3) Basophils % (Manual) 0 % (0-2) Band Neutrophils 1 % (0-8) Platelet Estimate Decreased L Platelet Morphology Normal Hypochromasia 1+ Sodium Level 136 MMOL/L (136-145) Potassium Level 2.4 MMOL/L (3.5-5.1) *L Chloride Level 105 MMOL/L (98-107) Carbon Dioxide Level 22 MMOL/L (21-32) Anion Gap 9 mmol/L (5-15) Blood Urea Nitrogen 22 mg/dL (7-18) H Creatinine 1.0 MG/DL (0.55-1.30) Estimat Glomerular Filtration Rate mL/min (>60) Glucose Level 131 MG/DL (74-106) H Calcium Level 7.3 MG/DL (8.5-10.1) L Phosphorus Level 2.0 MG/DL (2.5-4.9) L Magnesium Level 1.8 MG/DL (1.8-2.4) Iron Level 10 ug/dL (50-175) L Total Iron Binding Capacity 204 ug/dL (250-450) L Percent Iron Saturation 5 % (15-50) L Unsaturated Iron Binding 194 ug/dL (112-346) Ferritin 144 NG/ML (8-388) Total Bilirubin 0.4 MG/DL (0.2-1.0) Aspartate Amino Transf (AST/SGOT) 47 U/L (15-37) H Alanine Aminotransferase (ALT/SGPT) 41 U/L (12-78) Alkaline Phosphatase 49 U/L (46-116) Troponin I 0.530 ng/mL (0.000-0.056) Total Protein 5.5 G/DL (6.4-8.2) L Albumin 1.6 G/DL (3.4-5.0) L Globulin 3.9 g/dL Albumin/Globulin Ratio 0.4 (1.0-2.7) L Vitamin B12 Level 1089 PG/ML (193-986) H Folate 8.7 NG/ML (8.6-58.9) Arterial Blood pH 7.440 (7.350-7.450) Arterial Blood Partial Pressure CO2 30.4 mmHg (35.0-45.0) L Arterial Blood Partial Pressure O2 209.3 mmHg (75.0-100.0) H Arterial Blood HCO3 20.2 mmol/L (22.0-26.0) L Arterial Blood Oxygen Saturation 98.8 % (95-100) Arterial Blood Base Excess -3.2 (-2-2) L Tanner Test Positive Vancomycin Level Trough < 2.0 ug/mL (5.0-12.0) L Neurologic Exam Objective PHYSICAL EXAMINATION: GENERAL: She is a well-developed and well-nourished lady, lying in bed, in no acute distress, connected to a ventilator via an orotracheal tube. HEAD: Normocephalic and atraumatic. EENT: Examination benign except for bilateral chemosis. NECK: No neck rigidity was observed. NEUROLOGICAL EXAMINATION: MENTAL STATUS EXAMINATION: She was comatose and did not respond even to the painful stimuli. SPEECH: Could not be tested. LANGUAGE: Could not be tested. CRANIAL NERVE EXAMINATION: II: She did not blink to threat. III, IV, : The external ocular movements were present, but diminished on oculocephalic maneuvers. The pupils were 3 mm in diameter and did not react to light. V & VII: The corneal reflexes were present, but subdued. VIII: She did not respond to sounds. She had no opsoclonus. IX & X: The gag reflex was absent on manipulating the endotracheal tube. XI: The sternocleidomastoids and trapezii did not function. XII: Could not be tested adequately. MOTOR SYSTEM: Tone was normal in all four extremities. Examination of muscle mass revealed generalized muscle wasting. Examination of power was impossible to perform. No movements were seen even on deep pain. SENSORY EXAMINATION: She did not respond even to deep pain. REFLEXES: 0 at the biceps, triceps, brachioradialis, knees, and ankles. The plantar responses were extensor bilaterally. COORDINATION, STANCE & GAIT: Could not be tested. Impression/Recommendations Diagnostic Impression 1. Ms. Sarah Mueller is an 88-year-old, lady, of unknown handedness, who does have a past history of hypertension, right hip fracture, and dysphagia. She apparently choked on the food and then became unresponsive. It took 30 minutes to resuscitate her. She then had another episode of cardiac arrest. She has been comatose since and was exhibiting abnormal body jerking movements. 2. She continues to be comatose. There has been no improvement in her level of arousal. The myoclonic jerks have resolved. She continues to be intubated and artificially ventilated. She is on dopamine for pressure support. There has been no improvement in her neurologic state. 3. On neurological examination, at this time, she exhibits bilateral chemosis. She cannot be aroused even on deep painful stimuli. Eye movements are present on oculocephalic maneuvers, but subdued. The pupils are nonreactive to light. The corneal reflexes are subdued. The gag reflex is absent. She does not respond even to deep pain. She has globally absent deep tendon reflexes with extensor plantar responses bilaterally. 4. Laboratory data on admission revealed a mild anemia with a hemoglobin of 9.6 G. The arterial blood gases revealed a pH of 7.34 with a pCO2 of 44.4 and a pO2 of 321. The chemistry panel revealed a low potassium at 2.9, a BUN of 31 with a creatinine of 1.1, glucose elevated to 168, calcium low at 7.1, an AST of 84 with normal ALT and alkaline phosphatase. A CK-MB elevated to 10.1. A proBNP elevated to 253 and serum albumin of 2.2. The urinalysis revealed 1+ leukocyte esterase, 10-15 red blood cells, and 15-20 white blood cells per high-power field. Her INR was 1.1. 5. The CT of the brain done on 09/01/18 revealed no acute pathology. 6. 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 The abnormal body movements that we are seeing at this point in time are indicative of postanoxic myoclonus. She also had a questionable seizure on 08/31/18. The prognosis for recovery of neurological function is dismal because of the prolonged period where no cardiac rhythm was present, followed by coma and in addition, post anoxic myoclonus. Recommendations 1. Continue present management. 2. Continue Depacon 1 G q.12 h. intravenously and Ativan 2 mg intravenously can be used for prolonged myoclonus or seizures. 3. Will review EEG. 4. Observe closely. Wesly Leger M.D., M.S.P.H. Wesly Leger MD Sep 02, 2018 22:44
--- NOTE | 2018-09-02 23:30 | Electroencephalogram ---
DATE OF PROCEDURE: 09/01/2018 REQUESTING PHYSICIAN: Ron Cantu M.D. ELECTROENCEPHALOGRAM REPORT READING PHYSICIAN: Wesly Leger M.D. HISTORY: This EEG was performed on an 88-year-old lady who was found to be in cardiac arrest. She had to be resuscitated for more than 30 minutes and then she had another episode of cardiac arrest. The patient has been comatose ever since and has been exhibiting myoclonus, which at times is segmental and at other times is generalized. The purpose of this EEG was to evaluate the patient for the degree and type of cerebral dysfunction. TECHNICAL NOTE: This EEG was performed on a [employer] with electrodes placed on the scalp according to the International 10-20 system. [id number] and [id number] montages were used. The EEG was technically satisfactory and was performed while the patient was in a comatose state. OBSERVATIONS: In the reportedly comatose state, the entire tracing consisted of generalized periodic epileptiform discharges (GPEDs) with no discernible underlying background. No significant change in the EEG background was seen with stimulation. No change in the EEG background was also seen when the patient was given 2 mg of Ativan. No myoclonic jerks were seen during this tracing. IMPRESSION: This is a severely abnormal EEG characterized by generalized periodic epileptiform discharges (GPEDs) seen throughout the tracing with no discernible underlying background and no reactivity to external stimulation. COMMENT: This study is consistent with a severe anoxic ischemic brain insult. This EEG pattern carries an extremely poor prognosis for recovery of neurological function. Wesly Leger M.D., M.S.P.H. DR: ZURI JOB#: [id number] DAISY
--- NOTE | 2018-09-02 23:50 | General Progress Note ---
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 (3) Anoxic brain injury ICD Codes: G93.1 - Anoxic brain damage, not elsewhere classified SNOMED: 068527225 Status: unchanged Assessment/Plan Ativan iv for agitation the pts daughter is the decision maker Subjective Date patient seen: Sep 02, 2018 Allergies: Coded Allergies: PENICILLINS (Verified Allergy, Unknown, 08/30/18) Subjective agitated lethargic Objective Last 24 Hour Vital Signs Date Time Temp Pulse Resp B/P (MAP) Pulse Ox O2 Delivery O2 Flow Rate FiO2 09/02/18 22:39 69 16 50 09/02/18 22:00 75 15 117/52 (73) 100 09/02/18 21:00 72 16 107/45 (65) 100 09/02/18 20:53 72 16 50 09/02/18 20:00 Mechanical Ventilator 09/02/18 20:00 50 09/02/18 20:00 98.1 69 16 92/39 (56) 98 09/02/18 20:00 68 09/02/18 19:39 129/54 09/02/18 19:15 135/44 09/02/18 19:01 67 16 50 09/02/18 19:00 69 16 134/62 (86) 100 09/02/18 18:00 66 16 126/59 (81) 100 09/02/18 17:05 68 16 50 09/02/18 17:00 65 16 133/45 (74) 100 09/02/18 16:00 50 09/02/18 16:00 Mechanical Ventilator 09/02/18 16:00 72 09/02/18 16:00 98.7 61 16 120/62 (81) 100 09/02/18 15:00 67 16 130/46 (74) 100 09/02/18 14:46 64 16 50 09/02/18 14:00 65 16 126/50 (75) 100 09/02/18 13:20 62 16 50 09/02/18 13:00 66 16 112/49 (70) 100 09/02/18 12:00 69 09/02/18 12:00 Mechanical Ventilator 09/02/18 12:00 50 09/02/18 12:00 98.7 61 16 115/62 (79) 100 09/02/18 11:15 65 16 50 09/02/18 11:00 67 16 120/52 (74) 100 09/02/18 10:00 65 16 116/49 (71) 100 09/02/18 09:00 67 16 119/61 (80) 100 09/02/18 08:45 60 16 50 09/02/18 08:00 98.7 61 16 120/59 (79) 100 09/02/18 08:00 50 09/02/18 08:00 65 09/02/18 08:00 Mechanical Ventilator 09/02/18 07:29 62 16 50 09/02/18 07:00 65 16 129/61 (83) 100 09/02/18 07:00 123/49 09/02/18 06:00 130/59 09/02/18 06:00 64 16 138/59 (85) 100 09/02/18 05:12 57 16 50 09/02/18 05:00 64 16 109/49 (69) 100 09/02/18 05:00 109/49 09/02/18 04:00 50 09/02/18 04:00 88/59 09/02/18 04:00 Mechanical Ventilator 09/02/18 04:00 61 09/02/18 04:00 63 16 134/58 (83) 100 09/02/18 03:19 65 16 50 09/02/18 03:00 142/57 09/02/18 03:00 64 16 138/72 (94) 100 09/02/18 02:00 124/55 09/02/18 02:00 98.4 61 16 126/52 (76) 100 09/02/18 01:04 60 16 50 09/02/18 01:00 120/51 09/02/18 01:00 64 16 97/48 (64) 100 09/02/18 00:00 60 09/02/18 00:00 64 16 113/57 (75) 100 09/02/18 00:00 112/49 09/02/18 00:00 50 Intake and Output 09/01/18 09/02/18 19:00 07:00 Intake Total 1471.321 ml 1918.356 ml Output Total 750 ml 690 ml Balance 721.321 ml 1228.356 ml IV Total 1471.321 ml 1918.356 ml Output Urine Total 750 ml 690 ml Laboratory Tests 09/02/18 04:25: White Blood Count 4.5L, Red Blood Count 2.91L, Hemoglobin 8.6L, Hematocrit 25.5L , Mean Corpuscular Volume 88, Mean Corpuscular Hemoglobin 29.6, Mean Corpuscular Hemoglobin Concent 33.7, Red Cell Distribution Width 12.3, Platelet Count 143L, Mean Platelet Volume 7.3, Neutrophils (%) (Auto) , Lymphocytes (%) ( Auto) , Monocytes (%) (Auto) , Eosinophils (%) (Auto) , Basophils (%) (Auto) , Differential Total Cells Counted 100, Neutrophils % (Manual) 81H, Lymphocytes % (Manual) 11L, Monocytes % (Manual) 7, Eosinophils % (Manual) 0, Basophils % ( Manual) 0, Band Neutrophils 1, Platelet Estimate DecreasedL, Platelet Morphology Normal, Hypochromasia 1+, Sodium Level 136, Potassium Level 2.4*L, Chloride Level 105, Carbon Dioxide Level 22, Anion Gap 9, Blood Urea Nitrogen 22H, Creatinine 1.0, Estimat Glomerular Filtration Rate , Glucose Level 131H, Calcium Level 7.3L, Phosphorus Level 2.0L, Magnesium Level 1.8, Iron Level 10L, Total Iron Binding Capacity 204L, Percent Iron Saturation 5L, Unsaturated Iron Binding 194, Ferritin 144, Total Bilirubin 0.4, Aspartate Amino Transf (AST/SGOT ) 47H, Alanine Aminotransferase (ALT/SGPT) 41, Alkaline Phosphatase 49, Troponin I 0.530H, Total Protein 5.5L, Albumin 1.6L, Globulin 3.9, Albumin/ Globulin Ratio 0.4L, Vitamin B12 Level 1089H, Folate 8.7 09/02/18 08:53: Arterial Blood pH 7.440, Arterial Blood Partial Pressure CO2 30.4L, Arterial Blood Partial Pressure O2 209.3H, Arterial Blood HCO3 20.2L, Arterial Blood Oxygen Saturation 98.8, Arterial Blood Base Excess -3.2L, Tanner Test Positive 09/02/18 18:45: Vancomycin Level Trough < 2.0L Height (Feet): 5 Height (Inches): 4.00 Weight (Pounds): 133 General Appearance: lethargic Danna Pal MD Sep 02, 2018 23:49
[2018-09-03] VITALS (37 sets, daily range): BP systolic 51–173; BP diastolic 34–75
[2018-09-03 04:45] LABS: HEMATOCRIT 26.9 % (37.0-47.0); HEMOGLOBIN 9.2 G/DL (12.0-16.0); MEAN CORPUSCULAR VOLUME 86 FL (80-99); PLATELET COUNT 173 K/UL (150-450); RED BLOOD COUNT 3.12 M/UL (4.20-5.40); RED CELL DISTRIBUTION WIDTH 12.3 % (11.6-14.8); WHITE BLOOD COUNT 6.7 K/UL (4.8-10.8)
[2018-09-03 05:08] LABS: ALANINE AMINOTRANSFERASE 33 U/L (12-78); ALBUMIN 1.5 G/DL (3.4-5.0); ALBUMIN/GLOBULIN RATIO 0.4 (1.0-2.7); ALKALINE PHOSPHATASE 69 U/L (46-116); ANION GAP 10 mmol/L (5-15); ASPARTATE AMINO TRANSFERASE 33 U/L (15-37); BILIRUBIN,TOTAL 0.3 MG/DL (0.2-1.0); BLOOD UREA NITROGEN 19 mg/dL (7-18); CALCIUM 7.7 MG/DL (8.5-10.1); CARBON DIOXIDE 21 MMOL/L (21-32); CHLORIDE 107 MMOL/L (98-107); PHOSPHORUS 2.7 MG/DL (2.5-4.9); SODIUM 137 MMOL/L (136-145)
[2018-09-03 05:28] LABS: POTASSIUM 2.6 MMOL/L (3.5-5.1)
[2018-09-03] MEDS: Vancomycin 500mg/D5W 110ml IVPB SCH ×4 (05:34→14:09)
[2018-09-03] MEDS: Aztreonam 1gm in D5W 55ml IVPB SCH ×2 (05:34→15:29)
[2018-09-03] MEDS: metroNIDAZOLE 500mg tab ORAL SCH ×2 (05:34→14:10)
[2018-09-03] MEDS: Pantoprazole Inj IVP SCH ×2 (09:29→21:00)
[2018-09-03] MEDS: Valproate Sodium INJ 1,000 MG in D5W 55 ML IV SCH ×2 (09:29→21:00)
[2018-09-03] MEDS: Heparin 5000 units/ml inj SUBQ SCH ×2 (09:32→21:00)
--- NOTE | 2018-09-03 09:52 | Pulmonolgy Critical Care Note ---
Critical Care - Asmt/Plan Problems: (1) ATN (acute tubular necrosis) (2) Cardiac arrest (3) Hypothermia (4) Respiratory failure Respiratory: monitor respiratory rate, adjust FIO2, CXR Cardiac: continue to monitor HR/BP Renal: F/U I&O Infectious Disease: check cultures Gastrointestinal: continue feedings/current rate Endocrine: check TSH, check HgA1C Hematologic: transfuse if hgb<8.5 Neurologic: PRN Ativan, keep patient comfortable Affect: PRN ativan Prophylaxis: Protonix, Heparin Notes Reviewed: renal Discussed with: nurses, consultants, special education case managercomputer project manager - Objective Last 24 Hour Vital Signs Date Time Temp Pulse Resp B/P (MAP) Pulse Ox O2 Delivery O2 Flow Rate FiO2 09/03/18 09:01 84 18 45 09/03/18 08:00 45 09/03/18 08:00 97.6 74 16 74/34 (47) 100 09/03/18 08:00 74/34 09/03/18 07:00 74 15 111/50 (70) 100 09/03/18 07:00 73 16 45 09/03/18 06:30 74 15 111/50 (70) 100 09/03/18 06:00 75 15 105/46 (65) 100 09/03/18 05:30 76 20 112/51 (71) 100 09/03/18 05:11 76 16 45 09/03/18 05:00 78 15 117/53 (74) 100 09/03/18 04:30 79 16 122/55 (77) 100 09/03/18 04:00 50 09/03/18 04:00 98.1 70 16 115/46 (69) 100 09/03/18 04:00 Mechanical Ventilator 09/03/18 04:00 60 09/03/18 03:30 64 16 115/46 (69) 100 09/03/18 03:00 63 16 109/49 (69) 100 09/03/18 03:00 70 16 50 09/03/18 02:00 79 16 119/48 (71) 100 09/03/18 01:20 79 16 151/58 (89) 100 09/03/18 01:14 79 16 50 09/03/18 01:00 62 15 65/36 (46) 100 09/03/18 00:00 50 11/15/18 00:00 Mechanical Ventilator 09/03/18 00:00 72 09/03/18 00:00 97.9 71 15 173/71 (105) 100 09/02/18 23:00 71 15 74/33 (47) 100 09/02/18 22:39 69 16 50 09/02/18 22:00 75 15 117/52 (73) 100 09/02/18 21:00 72 16 107/45 (65) 100 09/02/18 20:53 72 16 50 09/02/18 20:30 69 16 117/52 (73) 100 09/02/18 20:00 Mechanical Ventilator 09/02/18 20:00 50 09/02/18 20:00 98.1 69 16 92/39 (56) 98 09/02/18 20:00 68 09/02/18 19:39 129/54 09/02/18 19:30 69 16 89/44 (59) 100 09/02/18 19:15 135/44 09/02/18 19:01 67 16 50 09/02/18 19:00 69 16 134/62 (86) 100 09/02/18 18:00 66 16 126/59 (81) 100 09/02/18 17:05 68 16 50 09/02/18 17:00 65 16 133/45 (74) 100 09/02/18 16:00 50 09/02/18 16:00 Mechanical Ventilator 09/02/18 16:00 72 09/02/18 16:00 98.7 61 16 120/62 (81) 100 09/02/18 15:00 67 16 130/46 (74) 100 09/02/18 14:46 64 16 50 09/02/18 14:00 65 16 126/50 (75) 100 09/02/18 13:20 62 16 50 09/02/18 13:00 66 16 112/49 (70) 100 09/02/18 12:00 69 09/02/18 12:00 Mechanical Ventilator 09/02/18 12:00 50 09/02/18 12:00 98.7 61 16 115/62 (79) 100 09/02/18 11:15 65 16 50 09/02/18 11:00 67 16 120/52 (74) 100 09/02/18 10:00 65 16 116/49 (71) 100 Status: obtunded Condition: critical Neck: full ROM Lungs: rhonchi Heart: HR/BP stable Abdomen: soft Extremities: no C/C/E, edema Critical Care - Subjective ROS Limited/Unobtainable: Yes Interval Events: no change in mental status Condition: critical EKG Rhythm: Sinus Rhythm FI02: 45 Vent Support Breath Rate: 16 Vent Support Mode: AC Vent Tidal Volume: 600 Sputum Amount: Scant PEEP: 0.0 PIP: 58 Tube Feeding Amount: 45 I&O: Intake and Output 09/02/18 09/03/18 19:00 07:00 Intake Total 583.956 ml 1157.990 ml Output Total 480 ml 410 ml Balance 103.956 ml 747.990 ml IV Total 508.956 ml 722.990 ml Tube Feeding 75 ml 375 ml Other 60 ml Output Urine Total 480 ml 410 ml CXR: ET in good position ET-Tube: 7.5 ET Position: 22 Labs: Laboratory Tests Test 09/02/18 18:45 09/03/18 04:10 09/03/18 07:55 Vancomycin Level Trough < 2.0 ug/mL (5.0-12.0) L White Blood Count 6.7 K/UL (4.8-10.8) Red Blood Count 3.12 M/UL (4.20-5.40) L Hemoglobin 9.2 G/DL (12.0-16.0) L Hematocrit 26.9 % (37.0-47.0) L Mean Corpuscular Volume 86 FL (80-99) Mean Corpuscular Hemoglobin 29.5 PG (27.0-31.0) Mean Corpuscular Hemoglobin Concent 34.1 G/DL (32.0-36.0) Red Cell Distribution Width 12.3 % (11.6-14.8) Platelet Count 173 K/UL (150-450) Mean Platelet Volume 6.7 FL (6.5-10.1) Neutrophils (%) (Auto) % (45.0-75.0) Lymphocytes (%) (Auto) % (20.0-45.0) Monocytes (%) (Auto) % (1.0-10.0) Eosinophils (%) (Auto) % (0.0-3.0) Basophils (%) (Auto) % (0.0-2.0) Sodium Level 137 MMOL/L (136-145) Potassium Level 2.6 MMOL/L (3.5-5.1) *L Chloride Level 107 MMOL/L (98-107) Carbon Dioxide Level 21 MMOL/L (21-32) Anion Gap 10 mmol/L (5-15) Blood Urea Nitrogen 19 mg/dL (7-18) H Creatinine 1.0 MG/DL (0.55-1.30) Estimat Glomerular Filtration Rate mL/min (>60) Glucose Level 114 MG/DL (74-106) H Calcium Level 7.7 MG/DL (8.5-10.1) L Phosphorus Level 2.7 MG/DL (2.5-4.9) Magnesium Level 1.6 MG/DL (1.8-2.4) L Total Bilirubin 0.3 MG/DL (0.2-1.0) Aspartate Amino Transf (AST/SGOT) 33 U/L (15-37) Alanine Aminotransferase (ALT/SGPT) 33 U/L (12-78) Alkaline Phosphatase 69 U/L (46-116) Total Protein 5.6 G/DL (6.4-8.2) L Albumin 1.5 G/DL (3.4-5.0) L Globulin 4.1 g/dL Albumin/Globulin Ratio 0.4 (1.0-2.7) L Arterial Blood pH 7.436 (7.350-7.450) Arterial Blood Partial Pressure CO2 31.0 mmHg (35.0-45.0) L Arterial Blood Partial Pressure O2 176.1 mmHg (75.0-100.0) H Arterial Blood HCO3 20.4 mmol/L (22.0-26.0) L Arterial Blood Oxygen Saturation 98.6 % (95-100) Arterial Blood Base Excess -3.0 (-2-2) L Tanner Test Pending Karine Berry MD Sep 03, 2018 09:52
--- NOTE | 2018-09-03 12:37 | Nephrology Progress Note ---
Assessment/Plan Problem List: (1) ATN (acute tubular necrosis) (2) Hypotension (3) Respiratory failure (4) For cardiopulmonary resuscitation (5) Anoxic brain injury Assessment ATN, Oliguric renal failure- resolving HyperKalemia resolved Respiratory failure acute on Vent Hypotensive improved s/p Code blue- High Troponin is lowering severe anoxic ischemic brain injury Plan poor prognosis IV Iron K and Phos supplement as needed NGT for meds IV fluids Monitor renal parameters avoid nephrotoxics Gastric support Neuro eval? Depakote and Ativan discussed with RN Subjective ROS Limited/Unobtainable: Yes Objective Objective Last 24 Hour Vital Signs Date Time Temp Pulse Resp B/P (MAP) Pulse Ox O2 Delivery O2 Flow Rate FiO2 09/03/18 12:00 68 16 133/60 (84) 100 09/03/18 12:00 68 09/03/18 11:30 63 16 74/43 (53) 100 09/03/18 11:00 69 16 71/40 (50) 100 09/03/18 10:58 70 16 40 09/03/18 10:30 80 23 110/52 (71) 100 09/03/18 10:00 78 16 92/43 (59) 100 09/03/18 09:30 81 26 121/62 (81) 100 09/03/18 09:01 84 18 45 09/03/18 09:00 80 25 160/64 (96) 100 09/03/18 08:30 76 16 138/67 (90) 100 09/03/18 08:00 106 09/03/18 08:00 45 09/03/18 08:00 97.6 74 16 74/34 (47) 100 09/03/18 08:00 74/34 09/03/18 08:00 Mechanical Ventilator 09/03/18 07:30 64 16 65/35 (45) 100 09/03/18 07:00 74 15 111/50 (70) 100 09/03/18 07:00 73 16 45 09/03/18 06:30 74 15 111/50 (70) 100 09/03/18 06:00 75 15 105/46 (65) 100 09/03/18 05:30 76 20 112/51 (71) 100 09/03/18 05:11 76 16 45 09/03/18 05:00 78 15 117/53 (74) 100 09/03/18 04:30 79 16 122/55 (77) 100 09/03/18 04:00 50 09/03/18 04:00 98.1 70 16 115/46 (69) 100 09/03/18 04:00 Mechanical Ventilator 09/03/18 04:00 60 09/03/18 03:30 64 16 115/46 (69) 100 09/03/18 03:00 63 16 109/49 (69) 100 09/03/18 03:00 70 16 50 09/03/18 02:00 79 16 119/48 (71) 100 09/03/18 01:20 79 16 151/58 (89) 100 09/03/18 01:14 79 16 50 09/03/18 01:00 62 15 65/36 (46) 100 09/03/18 00:00 50 09/03/18 00:00 Mechanical Ventilator 09/03/18 00:00 72 09/03/18 00:00 97.9 71 15 173/71 (105) 100 09/02/18 23:00 71 15 74/33 (47) 100 09/02/18 22:39 69 16 50 09/02/18 22:00 75 15 117/52 (73) 100 09/02/18 21:00 72 16 107/45 (65) 100 09/02/18 20:53 72 16 50 09/02/18 20:30 69 16 117/52 (73) 100 09/02/18 20:00 Mechanical Ventilator 09/02/18 20:00 50 09/02/18 20:00 98.1 69 16 92/39 (56) 98 09/02/18 20:00 68 09/02/18 19:39 129/54 09/02/18 19:30 69 16 89/44 (59) 100 09/02/18 19:15 135/44 09/02/18 19:01 67 16 50 09/02/18 19:00 69 16 134/62 (86) 100 09/02/18 18:00 66 16 126/59 (81) 100 09/02/18 17:05 68 16 50 09/02/18 17:00 65 16 133/45 (74) 100 09/02/18 16:00 50 09/02/18 16:00 Mechanical Ventilator 09/02/18 16:00 72 09/02/18 16:00 98.7 61 16 120/62 (81) 100 09/02/18 15:00 67 16 130/46 (74) 100 09/02/18 14:46 64 16 50 09/02/18 14:00 65 16 126/50 (75) 100 09/02/18 13:20 62 16 50 09/02/18 13:00 66 16 112/49 (70) 100 Intake and Output 09/02/18 09/03/18 19:00 07:00 Intake Total 583.956 ml 1157.990 ml Output Total 480 ml 410 ml Balance 103.956 ml 747.990 ml IV Total 508.956 ml 722.990 ml Tube Feeding 75 ml 375 ml Other 60 ml Output Urine Total 480 ml 410 ml Laboratory Tests 09/02/18 18:45: Vancomycin Level Trough < 2.0L 09/03/18 04:10: White Blood Count 6.7, Red Blood Count 3.12L, Hemoglobin 9.2L, Hematocrit 26.9L , Mean Corpuscular Volume 86, Mean Corpuscular Hemoglobin 29.5, Mean Corpuscular Hemoglobin Concent 34.1, Red Cell Distribution Width 12.3, Platelet Count 173, Mean Platelet Volume 6.7, Neutrophils (%) (Auto) , Lymphocytes (%) ( Auto) , Monocytes (%) (Auto) , Eosinophils (%) (Auto) , Basophils (%) (Auto) , Sodium Level 137, Potassium Level 2.6*L, Chloride Level 107, Carbon Dioxide Level 21, Anion Gap 10, Blood Urea Nitrogen 19H, Creatinine 1.0, Estimat Glomerular Filtration Rate , Glucose Level 114H, Calcium Level 7.7L, Phosphorus Level 2.7, Magnesium Level 1.6L, Total Bilirubin 0.3, Aspartate Amino Transf ( AST/SGOT) 33, Alanine Aminotransferase (ALT/SGPT) 33, Alkaline Phosphatase 69, Total Protein 5.6L, Albumin 1.5L, Globulin 4.1, Albumin/Globulin Ratio 0.4L 09/03/18 07:55: Arterial Blood pH 7.436, Arterial Blood Partial Pressure CO2 31.0L, Arterial Blood Partial Pressure O2 176.1H, Arterial Blood HCO3 20.4L, Arterial Blood Oxygen Saturation 98.6, Arterial Blood Base Excess -3.0L, Tanner Test [Pending] Height (Feet): 5 Height (Inches): 4.00 Weight (Pounds): 133 General Appearance: other - comatose EENT: other - on vent Cardiovascular: normal rate Respiratory/Chest: decreased breath sounds Abdomen: soft Kwadwo Mcfarland MD Sep 03, 2018 12:37
--- NOTE | 2018-09-03 12:45 | Diagnostic Imaging Report ---
Indication: Dyspnea Technique: One view of the chest Comparison: 09/02/2018 Findings: Stable satisfactory positions of endotracheal tube, nasogastric tube. Arch left pleural effusion persists. Right perihilar consolidation persists, unchanged. Findings are overall unchanged Impression: Unchanged, over one day, findings as above.
--- NOTE | 2018-09-03 13:09 | General Progress Note ---
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 no agitation today. Objective Last 24 Hour Vital Signs Date Time Temp Pulse Resp B/P (MAP) Pulse Ox O2 Delivery O2 Flow Rate FiO2 09/03/18 12:00 68 16 133/60 (84) 100 09/03/18 12:00 68 09/03/18 12:00 Mechanical Ventilator 09/03/18 12:00 40 09/03/18 11:30 63 16 74/43 (53) 100 09/03/18 11:00 69 16 71/40 (50) 100 09/03/18 10:58 70 16 40 09/03/18 10:30 80 23 110/52 (71) 100 09/03/18 10:00 78 16 92/43 (59) 100 09/03/18 09:30 81 26 121/62 (81) 100 09/03/18 09:01 84 18 45 09/03/18 09:00 80 25 160/64 (96) 100 09/03/18 08:30 76 16 138/67 (90) 100 09/03/18 08:00 106 09/03/18 08:00 45 09/03/18 08:00 97.6 74 16 74/34 (47) 100 09/03/18 08:00 74/34 09/03/18 08:00 Mechanical Ventilator 09/03/18 07:30 64 16 65/35 (45) 100 09/03/18 07:00 74 15 111/50 (70) 100 09/03/18 07:00 73 16 45 09/03/18 06:30 74 15 111/50 (70) 100 09/03/18 06:00 75 15 105/46 (65) 100 09/03/18 05:30 76 20 112/51 (71) 100 09/03/18 05:11 76 16 45 09/03/18 05:00 78 15 117/53 (74) 100 09/03/18 04:30 79 16 122/55 (77) 100 09/03/18 04:00 50 09/03/18 04:00 98.1 70 16 115/46 (69) 100 09/03/18 04:00 Mechanical Ventilator 09/03/18 04:00 60 09/03/18 03:30 64 16 115/46 (69) 100 09/03/18 03:00 63 16 109/49 (69) 100 09/03/18 03:00 70 16 50 09/03/18 02:00 79 16 119/48 (71) 100 09/03/18 01:20 79 16 151/58 (89) 100 09/03/18 01:14 79 16 50 09/03/18 01:00 62 15 65/36 (46) 100 09/03/18 00:00 50 09/03/18 00:00 Mechanical Ventilator 09/03/18 00:00 72 09/03/18 00:00 97.9 71 15 173/71 (105) 100 09/02/18 23:00 71 15 74/33 (47) 100 09/02/18 22:39 69 16 50 09/02/18 22:00 75 15 117/52 (73) 100 09/02/18 21:00 72 16 107/45 (65) 100 09/02/18 20:53 72 16 50 09/02/18 20:30 69 16 117/52 (73) 100 09/02/18 20:00 Mechanical Ventilator 09/02/18 20:00 50 09/02/18 20:00 98.1 69 16 92/39 (56) 98 09/02/18 20:00 68 09/02/18 19:39 129/54 09/02/18 19:30 69 16 89/44 (59) 100 09/02/18 19:15 135/44 09/02/18 19:01 67 16 50 09/02/18 19:00 69 16 134/62 (86) 100 09/02/18 18:00 66 16 126/59 (81) 100 09/02/18 17:05 68 16 50 09/02/18 17:00 65 16 133/45 (74) 100 09/02/18 16:00 50 09/02/18 16:00 Mechanical Ventilator 09/02/18 16:00 72 09/02/18 16:00 98.7 61 16 120/62 (81) 100 09/02/18 15:00 67 16 130/46 (74) 100 09/02/18 14:46 64 16 50 09/02/18 14:00 65 16 126/50 (75) 100 09/02/18 13:20 62 16 50 Intake and Output 09/02/18 09/03/18 19:00 07:00 Intake Total 583.956 ml 1157.990 ml Output Total 480 ml 410 ml Balance 103.956 ml 747.990 ml IV Total 508.956 ml 722.990 ml Tube Feeding 75 ml 375 ml Other 60 ml Output Urine Total 480 ml 410 ml Laboratory Tests 09/02/18 18:45: Vancomycin Level Trough < 2.0L 09/03/18 04:10: White Blood Count 6.7, Red Blood Count 3.12L, Hemoglobin 9.2L, Hematocrit 26.9L , Mean Corpuscular Volume 86, Mean Corpuscular Hemoglobin 29.5, Mean Corpuscular Hemoglobin Concent 34.1, Red Cell Distribution Width 12.3, Platelet Count 173, Mean Platelet Volume 6.7, Neutrophils (%) (Auto) , Lymphocytes (%) ( Auto) , Monocytes (%) (Auto) , Eosinophils (%) (Auto) , Basophils (%) (Auto) , Sodium Level 137, Potassium Level 2.6*L, Chloride Level 107, Carbon Dioxide Level 21, Anion Gap 10, Blood Urea Nitrogen 19H, Creatinine 1.0, Estimat Glomerular Filtration Rate , Glucose Level 114H, Calcium Level 7.7L, Phosphorus Level 2.7, Magnesium Level 1.6L, Total Bilirubin 0.3, Aspartate Amino Transf ( AST/SGOT) 33, Alanine Aminotransferase (ALT/SGPT) 33, Alkaline Phosphatase 69, Total Protein 5.6L, Albumin 1.5L, Globulin 4.1, Albumin/Globulin Ratio 0.4L 09/03/18 07:55: Arterial Blood pH 7.436, Arterial Blood Partial Pressure CO2 31.0L, Arterial Blood Partial Pressure O2 176.1H, Arterial Blood HCO3 20.4L, Arterial Blood Oxygen Saturation 98.6, Arterial Blood Base Excess -3.0L, Tanner Test [Pending] Height (Feet): 5 Height (Inches): 4.00 Weight (Pounds): 133 General Appearance: lethargic Danna Pal MD Sep 03, 2018 13:09
[2018-09-03] MEDS: Midodrine 10mg tab NG SCH ×2 (14:10→18:36)
--- NOTE | 2018-09-03 15:40 | Cardiac Electrophysiology PN ---
Assessment/Plan Assessment/Plan 1. Status post cardiorespiratory arrest, etiology is not clear at this time. Troponin are marginally elevated and could be due to prolonged CPR and multiple shocks. Echocardiogram Nl EF 2. Troponin elevation. Peak Troponin 6. Down to 2. No acute ST-T changes. 3. Shock. On dopamine, could have aspiration pneumonia. 4. Respiratory failure, on the ventilator as well as broad-spectrum IV antibiotics. 5. Accelerated junctional rhythm. Continue dopamine. 6. Hypokalemia. Replaced 7. Renal failure. Creatinine 1.5. 8. 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 DNR DW [facility] to [place] pending Subjective Subjective In ICU on the vent unresponsive on Dopamine 3.5 mcg/min. DNR. Transfer to [place] pending. In and out of atrial fib Objective Last 24 Hour Vital Signs Date Time Temp Pulse Resp B/P (MAP) Pulse Ox O2 Delivery O2 Flow Rate FiO2 09/03/18 15:19 75 16 40 09/03/18 15:00 70 16 146/67 (93) 100 09/03/18 14:00 68 16 143/73 (96) 100 09/03/18 13:12 73 16 40 09/03/18 13:00 98.0 72 16 142/70 (94) 100 09/03/18 12:30 72 16 155/65 (95) 100 09/03/18 12:00 68 16 133/60 (84) 100 09/03/18 12:00 68 09/03/18 12:00 Mechanical Ventilator 09/03/18 12:00 40 09/03/18 11:30 63 16 74/43 (53) 100 09/03/18 11:00 69 16 71/40 (50) 100 09/03/18 10:58 70 16 40 09/03/18 10:30 80 23 110/52 (71) 100 09/03/18 10:00 78 16 92/43 (59) 100 09/03/18 09:30 81 26 121/62 (81) 100 09/03/18 09:01 84 18 45 09/03/18 09:00 80 25 160/64 (96) 100 09/03/18 08:30 76 16 138/67 (90) 100 09/03/18 08:00 106 09/03/18 08:00 45 09/03/18 08:00 97.6 74 16 74/34 (47) 100 09/03/18 08:00 74/34 09/03/18 08:00 Mechanical Ventilator 09/03/18 07:30 64 16 65/35 (45) 100 09/03/18 07:00 74 15 111/50 (70) 100 09/03/18 07:00 73 16 45 09/03/18 06:30 74 15 111/50 (70) 100 09/03/18 06:00 75 15 105/46 (65) 100 09/03/18 05:30 76 20 112/51 (71) 100 09/03/18 05:11 76 16 45 09/03/18 05:00 78 15 117/53 (74) 100 09/03/18 04:30 79 16 122/55 (77) 100 09/03/18 04:00 50 09/03/18 04:00 98.1 70 16 115/46 (69) 100 09/03/18 04:00 Mechanical Ventilator 09/03/18 04:00 60 09/03/18 03:30 64 16 115/46 (69) 100 09/03/18 03:00 63 16 109/49 (69) 100 09/03/18 03:00 70 16 50 09/03/18 02:00 79 16 119/48 (71) 100 09/03/18 01:20 79 16 151/58 (89) 100 09/03/18 01:14 79 16 50 09/03/18 01:00 62 15 65/36 (46) 100 09/03/18 00:00 50 09/03/18 00:00 Mechanical Ventilator 09/03/18 00:00 72 09/03/18 00:00 97.9 71 15 173/71 (105) 100 09/02/18 23:00 71 15 74/33 (47) 100 09/02/18 22:39 69 16 50 09/02/18 22:00 75 15 117/52 (73) 100 09/02/18 21:00 72 16 107/45 (65) 100 09/02/18 20:53 72 16 50 09/02/18 20:30 69 16 117/52 (73) 100 09/02/18 20:00 Mechanical Ventilator 09/02/18 20:00 50 09/02/18 20:00 98.1 69 16 92/39 (56) 98 09/02/18 20:00 68 09/02/18 19:39 129/54 09/02/18 19:30 69 16 89/44 (59) 100 09/02/18 19:15 135/44 09/02/18 19:01 67 16 50 09/02/18 19:00 69 16 134/62 (86) 100 09/02/18 18:00 66 16 126/59 (81) 100 09/02/18 17:05 68 16 50 09/02/18 17:00 65 16 133/45 (74) 100 09/02/18 16:00 50 09/02/18 16:00 Mechanical Ventilator 09/02/18 16:00 72 09/02/18 16:00 98.7 61 16 120/62 (81) 100 Intake and Output 09/02/18 09/03/18 18:59 06:59 Intake Total 758.481 ml 1070.846 ml Output Total 500 ml 410 ml Balance 258.481 ml 660.846 ml IV Total 698.481 ml 665.846 ml Tube Feeding 60 ml 345 ml Other 60 ml Output Urine Total 500 ml 410 ml Laboratory Tests Test 09/02/18 18:45 09/03/18 04:10 09/03/18 07:55 Vancomycin Level Trough < 2.0 ug/mL (5.0-12.0) L White Blood Count 6.7 K/UL (4.8-10.8) Red Blood Count 3.12 M/UL (4.20-5.40) L Hemoglobin 9.2 G/DL (12.0-16.0) L Hematocrit 26.9 % (37.0-47.0) L Mean Corpuscular Volume 86 FL (80-99) Mean Corpuscular Hemoglobin 29.5 PG (27.0-31.0) Mean Corpuscular Hemoglobin Concent 34.1 G/DL (32.0-36.0) Red Cell Distribution Width 12.3 % (11.6-14.8) Platelet Count 173 K/UL (150-450) Mean Platelet Volume 6.7 FL (6.5-10.1) Neutrophils (%) (Auto) % (45.0-75.0) Lymphocytes (%) (Auto) % (20.0-45.0) Monocytes (%) (Auto) % (1.0-10.0) Eosinophils (%) (Auto) % (0.0-3.0) Basophils (%) (Auto) % (0.0-2.0) Sodium Level 137 MMOL/L (136-145) Potassium Level 2.6 MMOL/L (3.5-5.1) *L Chloride Level 107 MMOL/L (98-107) Carbon Dioxide Level 21 MMOL/L (21-32) Anion Gap 10 mmol/L (5-15) Blood Urea Nitrogen 19 mg/dL (7-18) H Creatinine 1.0 MG/DL (0.55-1.30) Estimat Glomerular Filtration Rate mL/min (>60) Glucose Level 114 MG/DL (74-106) H Calcium Level 7.7 MG/DL (8.5-10.1) L Phosphorus Level 2.7 MG/DL (2.5-4.9) Magnesium Level 1.6 MG/DL (1.8-2.4) L Total Bilirubin 0.3 MG/DL (0.2-1.0) Aspartate Amino Transf (AST/SGOT) 33 U/L (15-37) Alanine Aminotransferase (ALT/SGPT) 33 U/L (12-78) Alkaline Phosphatase 69 U/L (46-116) Total Protein 5.6 G/DL (6.4-8.2) L Albumin 1.5 G/DL (3.4-5.0) L Globulin 4.1 g/dL Albumin/Globulin Ratio 0.4 (1.0-2.7) L Arterial Blood pH 7.436 (7.350-7.450) Arterial Blood Partial Pressure CO2 31.0 mmHg (35.0-45.0) L Arterial Blood Partial Pressure O2 176.1 mmHg (75.0-100.0) H Arterial Blood HCO3 20.4 mmol/L (22.0-26.0) L Arterial Blood Oxygen Saturation 98.6 % (95-100) Arterial Blood Base Excess -3.0 (-2-2) L Tanner Test Pending Objective HEAD AND NECK: Orally intubated.NG tube is in. LUNGS: Have coarse rhonchi. CARDIOVASCULAR: Regular, S1, S2 with no gallop. ABDOMEN: Soft. EXTREMITIES: No pitting edema. Imtiaz Moreno MD Sep 03, 2018 15:39
[2018-09-03] MEDS ORDERED: Tubing IV Secondary IV ONE ×2 (16:04→20:59)
[2018-09-03] MEDS ORDERED: D5NS 1000ml IV ONE ×2 (16:04)
[2018-09-03] MEDS ORDERED: NS 275ml ONE (16:04)
--- NOTE | 2018-09-03 16:15 | Infectious Diseases Prog Note ---
Assessment/Plan Assessment/Plan ASSESSMENT: The patient is an 88-year-old female with: Aspiration pneumonia CXR: Unchanged, over one day, findings as above. Sepsis / on pressors Nl WBC Afebrile Transaminitis (mostly due to shock) Ventilator-dependent respiratory failure HTN History of dysphagia. DM2 PLAN: continue IV Vancomycin, aztreonam and Flagyl d# 3/ 7 (for coverage of Asp) Monitor CBC Monitor BMP Monitor cultures(blood, sputum, and urine) Monitor chest x-ray in AM Respiratory support Continue pressors PRN Subjective Allergies: Coded Allergies: PENICILLINS (Verified Allergy, Unknown, 08/30/18) Subjective in ICU Objective Vital Signs Last 24 Hour Vital Signs Date Time Temp Pulse Resp B/P (MAP) Pulse Ox O2 Delivery O2 Flow Rate FiO2 09/03/18 15:19 75 16 40 09/03/18 15:00 70 16 146/67 (93) 100 09/03/18 14:00 68 16 143/73 (96) 100 09/03/18 13:12 73 16 40 09/03/18 13:00 98.0 72 16 142/70 (94) 100 09/03/18 12:30 72 16 155/65 (95) 100 09/03/18 12:00 68 16 133/60 (84) 100 09/03/18 12:00 68 09/03/18 12:00 Mechanical Ventilator 09/03/18 12:00 40 09/03/18 11:30 63 16 74/43 (53) 100 09/03/18 11:00 69 16 71/40 (50) 100 09/03/18 10:58 70 16 40 09/03/18 10:30 80 23 110/52 (71) 100 09/03/18 10:00 78 16 92/43 (59) 100 09/03/18 09:30 81 26 121/62 (81) 100 09/03/18 09:01 84 18 45 09/03/18 09:00 80 25 160/64 (96) 100 09/03/18 08:30 76 16 138/67 (90) 100 09/03/18 08:00 106 09/03/18 08:00 45 09/03/18 08:00 97.6 74 16 74/34 (47) 100 09/03/18 08:00 74/34 09/03/18 08:00 Mechanical Ventilator 09/03/18 07:30 64 16 65/35 (45) 100 09/03/18 07:00 74 15 111/50 (70) 100 09/03/18 07:00 73 16 45 09/03/18 06:30 74 15 111/50 (70) 100 09/03/18 06:00 75 15 105/46 (65) 100 09/03/18 05:30 76 20 112/51 (71) 100 09/03/18 05:11 76 16 45 09/03/18 05:00 78 15 117/53 (74) 100 09/03/18 04:30 79 16 122/55 (77) 100 09/03/18 04:00 50 09/03/18 04:00 98.1 70 16 115/46 (69) 100 09/03/18 04:00 Mechanical Ventilator 09/03/18 04:00 60 09/03/18 03:30 64 16 115/46 (69) 100 09/03/18 03:00 63 16 109/49 (69) 100 09/03/18 03:00 70 16 50 09/03/18 02:00 79 16 119/48 (71) 100 09/03/18 01:20 79 16 151/58 (89) 100 09/03/18 01:14 79 16 50 09/03/18 01:00 62 15 65/36 (46) 100 09/03/18 00:00 50 09/03/18 00:00 Mechanical Ventilator 09/03/18 00:00 72 09/03/18 00:00 97.9 71 15 173/71 (105) 100 09/02/18 23:00 71 15 74/33 (47) 100 09/02/18 22:39 69 16 50 09/02/18 22:00 75 15 117/52 (73) 100 09/02/18 21:00 72 16 107/45 (65) 100 09/02/18 20:53 72 16 50 09/02/18 20:30 69 16 117/52 (73) 100 09/02/18 20:00 Mechanical Ventilator 09/02/18 20:00 50 09/02/18 20:00 98.1 69 16 92/39 (56) 98 09/02/18 20:00 68 09/02/18 19:39 129/54 09/02/18 19:30 69 16 89/44 (59) 100 09/02/18 19:15 135/44 09/02/18 19:01 67 16 50 09/02/18 19:00 69 16 134/62 (86) 100 09/02/18 18:00 66 16 126/59 (81) 100 09/02/18 17:05 68 16 50 09/02/18 17:00 65 16 133/45 (74) 100 Height (Feet): 5 Height (Inches): 4.00 Weight (Pounds): 133 HEENT: anicteric Respiratory/Chest: no respiratory distress Cardiovascular: regular rhythm Abdomen: no organomegaly Laboratory Tests Test 09/02/18 18:45 09/03/18 04:10 09/03/18 07:55 Vancomycin Level Trough < 2.0 ug/mL (5.0-12.0) L White Blood Count 6.7 K/UL (4.8-10.8) Red Blood Count 3.12 M/UL (4.20-5.40) L Hemoglobin 9.2 G/DL (12.0-16.0) L Hematocrit 26.9 % (37.0-47.0) L Mean Corpuscular Volume 86 FL (80-99) Mean Corpuscular Hemoglobin 29.5 PG (27.0-31.0) Mean Corpuscular Hemoglobin Concent 34.1 G/DL (32.0-36.0) Red Cell Distribution Width 12.3 % (11.6-14.8) Platelet Count 173 K/UL (150-450) Mean Platelet Volume 6.7 FL (6.5-10.1) Neutrophils (%) (Auto) % (45.0-75.0) Lymphocytes (%) (Auto) % (20.0-45.0) Monocytes (%) (Auto) % (1.0-10.0) Eosinophils (%) (Auto) % (0.0-3.0) Basophils (%) (Auto) % (0.0-2.0) Sodium Level 137 MMOL/L (136-145) Potassium Level 2.6 MMOL/L (3.5-5.1) *L Chloride Level 107 MMOL/L (98-107) Carbon Dioxide Level 21 MMOL/L (21-32) Anion Gap 10 mmol/L (5-15) Blood Urea Nitrogen 19 mg/dL (7-18) H Creatinine 1.0 MG/DL (0.55-1.30) Estimat Glomerular Filtration Rate mL/min (>60) Glucose Level 114 MG/DL (74-106) H Calcium Level 7.7 MG/DL (8.5-10.1) L Phosphorus Level 2.7 MG/DL (2.5-4.9) Magnesium Level 1.6 MG/DL (1.8-2.4) L Total Bilirubin 0.3 MG/DL (0.2-1.0) Aspartate Amino Transf (AST/SGOT) 33 U/L (15-37) Alanine Aminotransferase (ALT/SGPT) 33 U/L (12-78) Alkaline Phosphatase 69 U/L (46-116) Total Protein 5.6 G/DL (6.4-8.2) L Albumin 1.5 G/DL (3.4-5.0) L Globulin 4.1 g/dL Albumin/Globulin Ratio 0.4 (1.0-2.7) L Arterial Blood pH 7.436 (7.350-7.450) Arterial Blood Partial Pressure CO2 31.0 mmHg (35.0-45.0) L Arterial Blood Partial Pressure O2 176.1 mmHg (75.0-100.0) H Arterial Blood HCO3 20.4 mmol/L (22.0-26.0) L Arterial Blood Oxygen Saturation 98.6 % (95-100) Arterial Blood Base Excess -3.0 (-2-2) L Tanner Test Pending Current Medications Medications (Trade) Dose Ordered Sig/Regina Route PRN Reason Start Time Stop Time Status Last Admin Dose Admin Acetaminophen (Tylenol) 650 mg Q4H PRN ORAL fever 08/30/18 19:15 09/29/18 19:14 Albuterol/ Ipratropium (Albuterol/ Ipratropium) 3 ml Q4H PRN HHN Shortness of Breath 08/30/18 19:15 09/04/18 19:14 Aztreonam 1 gm/ Dextrose 55 ml @ 110 mls/hr Q8HR IVPB 08/31/18 14:00 09/07/18 13:59 09/03/18 15:29 Chlorhexidine Gluconate (Blanca-Hex 2%) 1 applic DAILY@1999 TOPIC 08/31/18 20:00 09/30/18 19:59 09/02/18 19:40 Dopamine HCl/ Dextrose 250 ml @ 0 mls/hr Q24H IV 08/30/18 20:00 09/29/18 19:59 09/02/18 19:39 Heparin Sodium (Porcine) (Heparin 5000 units/ml) 5,000 units EVERY 12 HOURS SUBQ 08/30/18 21:00 09/29/18 20:59 09/03/18 09:32 Lorazepam (Ativan 2mg/ml 1ml) 2 mg Q2H PRN IV For Seizures 08/31/18 14:40 09/06/18 14:39 09/01/18 23:45 Metronidazole (Flagyl) 500 mg Q8HR ORAL 08/31/18 14:00 09/07/18 13:59 09/03/18 14:10 Midodrine (Pro-Amatine) 10 mg THREE TIMES A DAY NG 09/03/18 13:00 10/03/18 12:59 09/03/18 14:10 Norepinephrine Bitartrate 4 mg/ Dextrose 254 ml @ 0 mls/hr Q24H IV 08/30/18 19:15 09/29/18 19:14 08/31/18 06:05 Ondansetron HCl (Zofran) 4 mg Q6H PRN IVP Nausea & Vomiting 08/30/18 19:15 09/29/18 19:14 Pantoprazole (Protonix) 40 mg EVERY 12 HOURS IVP 08/31/18 21:00 09/30/18 20:59 09/03/18 09:29 Polyethylene Glycol (Miralax) 17 gm DAILYPRN PRN NG Constipation 08/31/18 12:00 09/29/18 19:14 Potassium Chloride 100 ml @ 50 mls/hr Q2H IVPB 09/03/18 08:00 09/03/18 19:59 09/03/18 14:09 Silver Sulfadiazine (Silvadene Cream 25gm) 1 applic TWICE A DAY TOPIC 08/31/18 18:00 09/30/18 08:59 09/03/18 09:32 Valproate Sodium 1000 mg/Dextrose 65 ml @ 32.5 mls/hr EVERY 12 HOURS IV 09/01/18 09:00 10/01/18 08:59 09/03/18 09:29 Vancomycin HCl (Vanco rx to dose) 1 ea DAILY PRN MISC per rx protocol 08/30/18 19:45 09/29/18 19:44 Vancomycin HCl 500 mg/Dextrose 110 ml @ 110 mls/hr Q8HR IVPB 09/02/18 22:00 09/07/18 21:59 09/03/18 14:09 Adrian Ames MD Sep 03, 2018 16:15
--- NOTE | 2018-09-03 17:12 | Internal Med Progress Note ---
Subjective Date of Service: Sep 03, 2018 Physician Name Santiago Nair Attending Physician Ron Cantu MD Current Medications Medications (Trade) Dose Ordered Sig/Regina Route PRN Reason Start Time Stop Time Status Last Admin Dose Admin Acetaminophen (Tylenol) 650 mg Q4H PRN ORAL fever 08/30/18 19:15 09/29/18 19:14 Albuterol/ Ipratropium (Albuterol/ Ipratropium) 3 ml Q4H PRN HHN Shortness of Breath 08/30/18 19:15 09/04/18 19:14 Aztreonam 1 gm/ Dextrose 55 ml @ 110 mls/hr Q8HR IVPB 08/31/18 14:00 09/07/18 13:59 09/03/18 15:29 Chlorhexidine Gluconate (Blanca-Hex 2%) 1 applic DAILY@2000 TOPIC 08/31/18 20:00 09/30/18 19:59 09/02/18 19:40 Dopamine HCl/ Dextrose 250 ml @ 0 mls/hr Q24H IV 08/30/18 20:00 09/29/18 19:59 09/02/18 19:39 Heparin Sodium (Porcine) (Heparin 5000 units/ml) 5,000 units EVERY 12 HOURS SUBQ 08/30/18 21:00 09/29/18 20:59 09/03/18 09:32 Lorazepam (Ativan 2mg/ml 1ml) 2 mg Q2H PRN IV For Seizures 08/31/18 14:40 09/06/18 14:39 09/01/18 23:45 Magnesium Sulfate 100 ml @ 100 mls/hr ONCE IVPB 09/03/18 17:00 09/03/18 18:00 Metronidazole (Flagyl) 500 mg Q8HR ORAL 08/31/18 14:00 09/07/18 13:59 09/03/18 14:10 Midodrine (Pro-Amatine) 10 mg THREE TIMES A DAY NG 09/03/18 13:00 10/03/18 12:59 09/03/18 14:10 Norepinephrine Bitartrate 4 mg/ Dextrose 254 ml @ 0 mls/hr Q24H IV 08/30/18 19:15 09/29/18 19:14 08/31/18 06:05 Ondansetron HCl (Zofran) 4 mg Q6H PRN IVP Nausea & Vomiting 08/30/18 19:15 09/29/18 19:14 Pantoprazole (Protonix) 40 mg EVERY 12 HOURS IVP 08/31/18 21:00 09/30/18 20:59 09/03/18 09:29 Polyethylene Glycol (Miralax) 17 gm DAILYPRN PRN NG Constipation 08/31/18 12:00 09/29/18 19:14 Potassium Chloride 100 ml @ 50 mls/hr Q2H IVPB 09/03/18 08:00 09/03/18 19:59 09/03/18 16:58 Silver Sulfadiazine (Silvadene Cream 25gm) 1 applic TWICE A DAY TOPIC 08/31/18 18:00 09/30/18 08:59 09/03/18 09:32 Valproate Sodium 1000 mg/Dextrose 65 ml @ 32.5 mls/hr EVERY 12 HOURS IV 09/01/18 09:00 10/01/18 08:59 09/03/18 09:29 Vancomycin HCl (Vanco rx to dose) 1 ea DAILY PRN MISC per rx protocol 08/30/18 19:45 09/29/18 19:44 Vancomycin HCl 500 mg/Dextrose 110 ml @ 110 mls/hr Q8HR IVPB 09/02/18 22:00 09/07/18 21:59 09/03/18 14:09 Allergies: Coded Allergies: PENICILLINS (Verified Allergy, Unknown, 08/30/18) ROS Limited/Unobtainable: Yes Subjective 88 YO F admitted in respiratory failure; S/P cardiac arrest. Intubated and sedated. Continues on dopamine drip. Cover for Int Ferny-Dr Cantu. ICU Objective Last Vital Signs Date Time Temp Pulse Resp B/P (MAP) Pulse Ox O2 Delivery O2 Flow Rate FiO2 09/03/18 16:37 73 16 40 09/03/18 16:00 97.6 124/65 (84) 100 09/03/18 16:00 Mechanical Ventilator 08/30/18 17:03 60.0 Laboratory Tests Test 09/02/18 18:45 09/03/18 04:10 09/03/18 07:55 Vancomycin Level Trough < 2.0 ug/mL (5.0-12.0) L White Blood Count 6.7 K/UL (4.8-10.8) Red Blood Count 3.12 M/UL (4.20-5.40) L Hemoglobin 9.2 G/DL (12.0-16.0) L Hematocrit 26.9 % (37.0-47.0) L Mean Corpuscular Volume 86 FL (80-99) Mean Corpuscular Hemoglobin 29.5 PG (27.0-31.0) Mean Corpuscular Hemoglobin Concent 34.1 G/DL (32.0-36.0) Red Cell Distribution Width 12.3 % (11.6-14.8) Platelet Count 173 K/UL (150-450) Mean Platelet Volume 6.7 FL (6.5-10.1) Neutrophils (%) (Auto) % (45.0-75.0) Lymphocytes (%) (Auto) % (20.0-45.0) Monocytes (%) (Auto) % (1.0-10.0) Eosinophils (%) (Auto) % (0.0-3.0) Basophils (%) (Auto) % (0.0-2.0) Sodium Level 137 MMOL/L (136-145) Potassium Level 2.6 MMOL/L (3.5-5.1) *L Chloride Level 107 MMOL/L (98-107) Carbon Dioxide Level 21 MMOL/L (21-32) Anion Gap 10 mmol/L (5-15) Blood Urea Nitrogen 19 mg/dL (7-18) H Creatinine 1.0 MG/DL (0.55-1.30) Estimat Glomerular Filtration Rate mL/min (>60) Glucose Level 114 MG/DL (74-106) H Calcium Level 7.7 MG/DL (8.5-10.1) L Phosphorus Level 2.7 MG/DL (2.5-4.9) Magnesium Level 1.6 MG/DL (1.8-2.4) L Total Bilirubin 0.3 MG/DL (0.2-1.0) Aspartate Amino Transf (AST/SGOT) 33 U/L (15-37) Alanine Aminotransferase (ALT/SGPT) 33 U/L (12-78) Alkaline Phosphatase 69 U/L (46-116) Total Protein 5.6 G/DL (6.4-8.2) L Albumin 1.5 G/DL (3.4-5.0) L Globulin 4.1 g/dL Albumin/Globulin Ratio 0.4 (1.0-2.7) L Arterial Blood pH 7.436 (7.350-7.450) Arterial Blood Partial Pressure CO2 31.0 mmHg (35.0-45.0) L Arterial Blood Partial Pressure O2 176.1 mmHg (75.0-100.0) H Arterial Blood HCO3 20.4 mmol/L (22.0-26.0) L Arterial Blood Oxygen Saturation 98.6 % (95-100) Arterial Blood Base Excess -3.0 (-2-2) L Tanner Test Pending Intake and Output 09/02/18 09/03/18 18:59 06:59 Intake Total 758.481 ml 1070.846 ml Output Total 500 ml 410 ml Balance 258.481 ml 660.846 ml IV Total 698.481 ml 665.846 ml Tube Feeding 60 ml 345 ml Other 60 ml Output Urine Total 500 ml 410 ml Objective General Appearance: WD/WN, moderate distress EENT: PERRL/EOMI, normal ENT inspection Neck: non-tender, normal alignment, supple Cardiovascular: normal peripheral pulses, normal rate, regular rhythm, no gallop/murmur, no JVD Respiratory/Chest: Mech vent; crackles/rales, rhonchi - bilaterally, expiratory wheezing Abdomen: normal bowel sounds, non tender, soft, no organomegaly, no mass Extremities: normal inspection 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 (2) Respiratory failure Assessment & Plan: Continue vent per pulmonary (3) Hypotension Assessment & Plan: Continue dopamine (4) Aspiration into airway Assessment & Plan: Continue vanco, flagyl and aztreonam per ID (5) ATN (acute tubular necrosis) Assessment & Plan: see nephrology note. (6) Elevated troponin Assessment & Plan: See cardiology note. (7) Anoxic brain injury Assessment & Plan: See neurology note. (8) Seizure disorder Assessment & Plan: Continue depakote per neurology Status: not improved Assessment/Plan Prognosis is guarded Santiago Nair MD Sep 03, 2018 17:12
--- NOTE | 2018-09-03 17:32 | Neurology Progress Note ---
Interim History Interim History Interim History Ms. Mueller continues to be comatose. There has been no improvement in her level of arousal. The myoclonic jerks have resolved. She opens her eyes spontaneously. She continues to be intubated and artificially ventilated. She is on dopamine for pressure support. There has been no improvement in her neurologic state. Review of Systems Neuro Review of Systems Unable to obtain. Objective Physical Exam Last Vital Signs Date Time Temp Pulse Resp B/P (MAP) Pulse Ox O2 Delivery O2 Flow Rate FiO2 09/03/18 17:00 75 16 125/60 (81) 100 09/03/18 16:37 40 09/03/18 16:00 97.6 09/03/18 16:00 Mechanical Ventilator 08/30/18 17:03 60.0 Laboratory Tests Test 09/02/18 18:45 09/03/18 04:10 09/03/18 07:55 Vancomycin Level Trough < 2.0 ug/mL (5.0-12.0) L White Blood Count 6.7 K/UL (4.8-10.8) Red Blood Count 3.12 M/UL (4.20-5.40) L Hemoglobin 9.2 G/DL (12.0-16.0) L Hematocrit 26.9 % (37.0-47.0) L Mean Corpuscular Volume 86 FL (80-99) Mean Corpuscular Hemoglobin 29.5 PG (27.0-31.0) Mean Corpuscular Hemoglobin Concent 34.1 G/DL (32.0-36.0) Red Cell Distribution Width 12.3 % (11.6-14.8) Platelet Count 173 K/UL (150-450) Mean Platelet Volume 6.7 FL (6.5-10.1) Neutrophils (%) (Auto) % (45.0-75.0) Lymphocytes (%) (Auto) % (20.0-45.0) Monocytes (%) (Auto) % (1.0-10.0) Eosinophils (%) (Auto) % (0.0-3.0) Basophils (%) (Auto) % (0.0-2.0) Sodium Level 137 MMOL/L (136-145) Potassium Level 2.6 MMOL/L (3.5-5.1) *L Chloride Level 107 MMOL/L (98-107) Carbon Dioxide Level 21 MMOL/L (21-32) Anion Gap 10 mmol/L (5-15) Blood Urea Nitrogen 19 mg/dL (7-18) H Creatinine 1.0 MG/DL (0.55-1.30) Estimat Glomerular Filtration Rate mL/min (>60) Glucose Level 114 MG/DL (74-106) H Calcium Level 7.7 MG/DL (8.5-10.1) L Phosphorus Level 2.7 MG/DL (2.5-4.9) Magnesium Level 1.6 MG/DL (1.8-2.4) L Total Bilirubin 0.3 MG/DL (0.2-1.0) Aspartate Amino Transf (AST/SGOT) 33 U/L (15-37) Alanine Aminotransferase (ALT/SGPT) 33 U/L (12-78) Alkaline Phosphatase 69 U/L (46-116) Total Protein 5.6 G/DL (6.4-8.2) L Albumin 1.5 G/DL (3.4-5.0) L Globulin 4.1 g/dL Albumin/Globulin Ratio 0.4 (1.0-2.7) L Arterial Blood pH 7.436 (7.350-7.450) Arterial Blood Partial Pressure CO2 31.0 mmHg (35.0-45.0) L Arterial Blood Partial Pressure O2 176.1 mmHg (75.0-100.0) H Arterial Blood HCO3 20.4 mmol/L (22.0-26.0) L Arterial Blood Oxygen Saturation 98.6 % (95-100) Arterial Blood Base Excess -3.0 (-2-2) L Tanner Test Pending Neurologic Exam Objective PHYSICAL EXAMINATION: GENERAL: She is a well-developed and well-nourished lady, lying in bed, in no acute distress, connected to a ventilator via an orotracheal tube. HEAD: Normocephalic and atraumatic. EENT: Examination benign except for bilateral chemosis. NECK: No neck rigidity was observed. NEUROLOGICAL EXAMINATION: MENTAL STATUS EXAMINATION: She was comatose and did not respond even to the painful stimuli. She did open her eyes spontaneously. SPEECH: Could not be tested. LANGUAGE: Could not be tested. CRANIAL NERVE EXAMINATION: II: She did not blink to threat. III, IV, : The external ocular movements were present, but diminished on oculocephalic maneuvers. The pupils were 3 mm in diameter and did not react to light. V & VII: The corneal reflexes were present, but subdued. VIII: She did not respond to sounds. She had no opsoclonus. IX & X: The gag reflex was absent on manipulating the endotracheal tube. XI: The sternocleidomastoids and trapezii did not function. XII: Could not be tested adequately. MOTOR SYSTEM: Tone was normal in all four extremities. Examination of muscle mass revealed generalized muscle wasting. Examination of power was impossible to perform. No movements were seen even on deep pain. SENSORY EXAMINATION: She did not respond even to deep pain. REFLEXES: 0 at the biceps, triceps, brachioradialis, knees, and ankles. The plantar responses were extensor bilaterally. COORDINATION, STANCE & GAIT: Could not be tested. Impression/Recommendations Diagnostic Impression 1. Ms. Sarah Mueller is an 88-year-old, lady, of unknown handedness, who does have a past history of hypertension, right hip fracture, and dysphagia. She apparently choked on the food and then became unresponsive. It took 30 minutes to resuscitate her. She then had another episode of cardiac arrest. She has been comatose since and was exhibiting abnormal body jerking movements. 2. She continues to be comatose. There has been no improvement in her level of arousal. The myoclonic jerks have resolved. She continues to be intubated and artificially ventilated. She is on dopamine for pressure support. There has been no improvement in her neurologic state. 3. On neurological examination, at this time, she exhibits bilateral chemosis. She cannot be aroused even on deep painful stimuli. She opens and closes her eyes spontaneously. Eye movements are present on oculocephalic maneuvers, but subdued. The pupils are nonreactive to light. The corneal reflexes are subdued. The gag reflex is absent. She does not respond even to deep pain. She has globally absent deep tendon reflexes with extensor plantar responses bilaterally. 4. Laboratory data on admission revealed a mild anemia with a hemoglobin of 9.6 G. The arterial blood gases revealed a pH of 7.34 with a pCO2 of 44.4 and a pO2 of 321. The chemistry panel revealed a low potassium at 2.9, a BUN of 31 with a creatinine of 1.1, glucose elevated to 168, calcium low at 7.1, an AST of 84 with normal ALT and alkaline phosphatase. A CK-MB elevated to 10.1. A proBNP elevated to 253 and serum albumin of 2.2. The urinalysis revealed 1+ leukocyte esterase, 10-15 red blood cells, and 15-20 white blood cells per high-power field. Her INR was 1.1. 5. The CT of the brain done on 09/01/18 revealed no acute pathology. 6. The EEG done on 09/01/18 revealed Generalized Periodic Epileptiform Discharges and ne reactivity consistent with a poor prognosis. 7. 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 The abnormal body movements that we are seeing at this point in time are indicative of postanoxic myoclonus. She also had a questionable seizure on 08/31/18. The prognosis for recovery of neurological function is dismal because of the prolonged period where no cardiac rhythm was present, followed by coma and in addition, post anoxic myoclonus. Recommendations 1. Continue present management. 2. Continue Depacon 1 G q.12 h. intravenously and Ativan 2 mg intravenously can be used for prolonged myoclonus or seizures. 3. Observe closely. Wesly Leger M.D., M.S.P.H. Wesly Leger MD Sep 03, 2018 17:32
[2018-09-03] MEDS: Dyna-Hex 2% Top Sol 2oz TOPIC SCH (20:00)
[2018-09-03] MEDS: DOPamine 400mg/250ml 250 ML IV SCH (20:12)
--- NOTE | 2018-09-04 10:26 | Discharge Summary ---
Discharge Summary Discharge Summary _ DATE OF ADMISSION: 08/30/2018 DATE OF DISCHARGE: 09/03/2018 CONSULTANTS: Dr. Wesly Berry [facility] COURSE: Patient is an 88-year-old white female, who presented with chief complaint of respiratory failure. The patient apparently was at home with family. Patient aspirated. EMS was called. Patient was unresponsive on arrival. She was emergently intubated in the field and was started with CPR and was given epinephrine. She was then transported to [facility]. Upon arrival to ED, patient had idioventricular rhythm. She was again resuscitated in the emergency room. She was admitted to ICU status post cardiac arrest and respiratory failure. Patient was placed on vent support. She was started on IV pressors. Patient was noted to be hyperkalemic and had oliguric renal failure and ATN. She was given IV fluids changed. NGT was inserted. She was given Kayexalate. She was given IV vancomycin and was started on aztreonam and Flagyl for coverage of anaerobes. Neurologic evaluation was done. Patient was assessed to have severe anoxic ischemic brain injury. She had abnormal body movements indicative of post anoxic myoclonus. She also had questionable seizure disorder. Prognosis of recovery of neurological function was poor. She was given Depacon intravenously and Ativan. EEG done on 09/01/2018 revealed generalized periodic epileptiform discharges seen throughout the tracing with no discernible underlying background and no reactivity to external stimulation. Study consistent with severe anoxic ischemic brain insult. Patient was eventually transferred to [facility]. FINAL DIAGNOSES: Status post cardiac and respiratory arrest. Acute respiratory failure requiring intubation Sepsis with Hypotension requiring IV pressors Status post aspiration with aspiration pneumonia Acute tubular necrosis Anoxic brain injury Seizure disorder Transaminitis mostly due to shock Dysphagia Diabetes mellitus Hypokalemia Major depressive disorder DISPOSITION: Patient was transferred to [facility]. I have been assigned to dictate discharge summary on this account, and I was not involved in the patient's management. Autumn Higginbotham NP Sep 04, 2018 10:26
== END 2018-09-03 21:00 | disposition short-term general hospital (02) | DRG 870 ==
LOC: EDBD 14:24 → EDBEDREQ 14:35 → EMR 14:49 → ICU 15:15 → EDBEDREQ 16:02
DX: A41.9 Sepsis, unspecified organism (principal); I46.9 Cardiac arrest, cause unspecified; J96.00 Acute respiratory failure, unspecified whether with hypoxia or hypercapnia; J69.0 Pneumonitis due to inhalation of food and vomit; N17.0 Acute kidney failure with tubular necrosis; R40.20 Unspecified coma; G92 Toxic encephalopathy; G93.1 Anoxic brain damage, not elsewhere classified; Z99.11 Dependence on respirator [ventilator] status; R57.9 Shock, unspecified; E87.5 Hyperkalemia; F32.9 Major depressive disorder, single episode, unspecified; E11.9 Type 2 diabetes mellitus without complications; R13.10 Dysphagia, unspecified; G40.909 Epilepsy, unspecified, not intractable, without status epilepticus; I10 Essential (primary) hypertension; D64.9 Anemia, unspecified; Z66 Do not resuscitate; E87.6 Hypokalemia; Z88.0 Allergy status to penicillin; Z88.2 Allergy status to sulfonamides; E03.9 Hypothyroidism, unspecified; R74.0 Nonspecific elevation of levels of transaminase and lactic acid dehydrogenase [LDH]
CPT/HCPCS: 36415; 36600; 70450; 71045; 74018; 80053; 80061; 80150; 80202; 81003; 82248; 82550; 82553; 82607; 82728; 82746; 82803; 83540; 83550; 83605; 83690; 83735; 83880; 84100; 84132; 84443; 84484; 84550; 85007; 85025; 85610; 85730; 86140; 87040; 87070; 87081; 87086; 87205; 93005; 93306; 94002; 94003; 94664; 95819; 99291